=== PATIENT | female | born 1965 | race Caucasian/White ===

== ENCOUNTER 2017-12-28 13:56 | Day surgery (SDC) | payer OTHER, SELFPAY ==
[2017-12-28 14:06] VITALS: BP 135/91; PULSE 100; RESP 15; TEMP 36.3; O2SAT 96; BMI 28.1
[2017-12-28] MEDS: SODIUM CHLORIDE 0.9% 1,000 ML 200 ML IV (14:20)
[2017-12-28] MEDS: ONDANSETRON 4 MG/2 ML INJ IV (14:36)
--- NOTE | 2017-12-28 14:50 | P.HP_ITS ---
History of Present Illness Chief complaint: colonoscopy [id number] Narrative: Annelise Eason is a 52 year old female who is here for a screening colonoscopy. Her last colonoscopy was 5 years ago and benign polyps were removed. She denies any problems or symptoms related to the function of her GI tract. 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) Anxiety (Chronic 10/06/11) Tobacco use disorder (Chronic 10/06/11) Gastroesophageal reflux disease with esophagitis (Chronic 08/05/12) Osteoarthritis of both knees (Chronic 02/21/16) Moderate alcohol use disorder, in early remission (Chronic 10/07/16) Neuropathy of right ulnar nerve at wrist (Inactive 12/04/16) Surgical History History of esophagogastroduodenoscopy (EGD) (08/03/12) History of tonsillectomy Status post colonoscopy (08/03/12) Status post tubal ligation Family & Social History Family History: Reviewed 12/28/17 by Yary Flores MD Social History: household members significant other Prior Living Arrangements Apartment/Condo Tobacco & Substance use: Smoking Status Current every day smoker Meds Home Medications Medication Instructions Recorded Confirmed Type nicotine 21 mg TOPICAL QDAYP PRN #30 patch 10/07/16 12/22/17 Rx omeprazole 40 mg PO QDAY #30 cap 03/11/17 12/22/17 Rx fluticasone [Flonase Allergy 9.9 ml NS Q DAY #1 bot 09/07/17 12/22/17 Rx Relief] levothyroxine [Synthroid] 75 mcg PO QDAY@0600 #90 tab 09/07/17 12/22/17 Rx alprazolam 0.5 mg PO HS #30 tab 09/10/17 12/22/17 Rx diazepam 10 mg tablet 10 mg PO Q8H PRN #15 tab 12/22/17 Rx tramadol 50 mg tablet 50 mg PO Q6H PRN #30 tab 12/22/17 Rx Allergies Allergy/AdvReac Type Severity Reaction Status Date / Time varenicline Allergy Severe HIVES/DIFFICULTY Unverified 12/22/17 10:45 BREATHING Review of Systems Review of Systems All systems reviewed & are unremarkable except as noted in HPI and below Exam Vital Signs (past 8 hours): Vital Signs - 8 hr 3 12/28/17 14:06 Temperature 97.3 F L Pulse Rate 100 H Respiratory Rate 15 Blood Pressure 135/91 H Pulse Oximetry 96 Pulse Oximetry 96 Oxygen Delivery Method Room Air Narrative Exam Narrative: Very pleasant lady in no obvious distress HEENT: NCAT, PERRLA, EOMI Lungs: clear bilaterally CV: NSR Abd: soft, nontender, active bowel sounds Ext: no gross ischemia Assessment & Plan Plan: Plan: 52 year old lady with a personal history of colon polyps here for screening colonoscopy. We have discussed the risks and benefits and the patient has expressed a desire to have the procedure.
--- NOTE | 2017-12-28 15:16 | PM.OP.1 ---
Operative Date/Time/Diagnoses - Date of procedure: 12/28/17 Time of procedure: 15:16 Pre-op diagnosis: Personal History of Colon Polyps Post-op diagnosis: same Procedure & Clinicians Procedure: Colonoscopy to the cecum Same procedure as scheduled: Yes Indications: Last colonoscopy 5 years ago Surgeon: Yary Flores Click Yes if Unassisted: Yes Anesthesia Type: Sedation (Versed 13 mg; fentanyl 350 mcg) Operative Notes Findings: 1. Excellent prep 2. No polyps or mass lesions 3. Diverticulosis noted in the sigmoid colon with the most concentrated disease at the junction of the sigmoid and descending colons 4. One external skin tag 5. Grade 1-2 internal hemorrhoids Closure Type: not applicable Specimen(s): none sent Procedure in detail: After obtaining informed consent, the patient was brought to the GI suite and placed in the left lateral decubitus position on the examination table. After placement of appropriate monitors, the patient was given incremental doses of Versed and Fentanyl until an appropriate level of sedation was achieved. A time out was held per SCOAP protocol. A digital rectal examination was performed and did not reveal any masses or obstructing lesions. The colonoscope was gently passed into the patient's anus and the entire colon navigated to the level of the cecum with minimal difficulty. Once in the cecum, the scope was withdrawn being sure to go before and beyond all mucosal folds and prominences and get an excellent examination. The findings are noted above. At the level of the rectal vault, the scope was retroflexed and the internal anal canal was examined. The scope was straightened and air aspirated from the colon. The instrument was removed from the patient's body and the procedure was concluded. The patient was allowed to awaken from sedation without difficulty and taken to the post-anesthesia care unit in good condition. Total sedation time 16 min Total withdrawal time 8 min 30 sec Complications: none Condition: stable Disposition: PACU Plan for aftercare: 1. Discharge to home 2. Plan for next colonoscopy in 5 years or as clinically indicated
[2017-12-28 15:17] VITALS: BP 142/88; PULSE 106; RESP 15; TEMP 36.6; O2SAT 97
[2017-12-28] MEDS: MIDAZOLAM 5 MG/5 ML VIAL IV (15:20)
[2017-12-28] MEDS: fentaNYL 250 MCG/5 ML INJ IV (15:20)
[2017-12-28 15:23] VITALS: BP 146/86; PULSE 105; RESP 14; O2SAT 97
[2017-12-28 15:34] VITALS: BP 138/85; PULSE 108; RESP 16; TEMP 36.4; O2SAT 94
[2017-12-28 15:41] VITALS: BP 143/88; PULSE 99; RESP 16; TEMP 36.4; O2SAT 98
== END 2017-12-28 15:55 | disposition home or self-care (01) ==
PROVIDERS: PCP Family Medicine; Visit Provider Surgery
PROC: 0DJD8ZZ Inspection of Lower Intestinal Tract, Via Natural or Artificial Opening Endoscopic (ICD-10-PCS; CPT 45378; principal; 2017-12-28 15:00)
DX: Z12.11 Encounter for screening for malignant neoplasm of colon (principal); Z86.010 Personal history of colon polyps; K57.30 Diverticulosis of large intestine without perforation or abscess without bleeding; K64.1 Second degree hemorrhoids; K64.4 Residual hemorrhoidal skin tags; E03.9 Hypothyroidism, unspecified; Z87.891 Personal history of nicotine dependence
CPT/HCPCS: 45378; J2250; J2405; J3010

== ENCOUNTER → 2018-06-15 12:13 | Outpatient (CLI) | payer OTHER, MEDICAID, SELFPAY ==
[2018-06-15 14:01] LABS: TSH w/ Reflex to FT4 1.57 uIU/mL (0.47-4.68)
== END ==
PROVIDERS: PCP Family Medicine; Visit Provider Family Medicine
DX: E03.9 Hypothyroidism, unspecified (principal)
CPT/HCPCS: 36415; 84443

== ENCOUNTER 2018-08-09 12:15 | Outpatient (RCR) | payer OTHER, MEDICAID, SELFPAY ==
--- NOTE | 2018-07-06 14:44 | PT.OIE ---
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) Anxiety (Chronic 10/06/11) Tobacco use disorder (Chronic 10/06/11) Gastroesophageal reflux disease with esophagitis (Chronic 08/05/12) Osteoarthritis of both knees (Chronic 02/21/16) Moderate alcohol use disorder, in early remission (Chronic 10/07/16) Neuropathy of right ulnar nerve at wrist (Inactive 12/04/16) Bronchitis (Chronic) Depression (Chronic) Heavy menstrual period (Chronic) History of recurrent ear infection (Chronic) Insomnia (Chronic) Seasonal allergies (Chronic) Chicken pox (Resolved) Conjunctivitis (Resolved) Mumps (Resolved) Past Surgical History (Last Updated 06/06/18 @ 20:08 by Lucita Tripp) Anesthesia (Resolved) History of sinus surgery (Resolved ~1992) History of use of contraceptive intrauterine device (IUD) (Resolved ~12/23/11) History of esophagogastroduodenoscopy (EGD) (08/03/12) History of tonsillectomy (~1968) Status post colonoscopy (08/03/12) Status post tubal ligation (~1996) Provider Visit Care Team Role Provider Type Cindy Lake DO Primary Care Provider Physician Specialty: Family Practice Address: [address] [place] [address], [id number] Email: [email or web address] Rogers Attending Provider Advanced Textile Worker Specialty: [facility] Address: [address] [place] [address], [phone] Email: [email or web address] Physical Therapy Initial Evaluation PT-OP-A Visit Information Start: 07/06/18 17:23 Freq: Status: Active Protocol: Document 07/06/18 14:44 RCC (Rec: 07/06/18 18:02 RCC [email or web address]) Out-Patient Physical Therapy Visit Information Visit Information Visit Type Initial Evaluation Visit Start Time 13:45 Visit Stop Time 14:44 Total Visit Minutes 59 Visit Number 1 Number of COFFEE ROASTER HELPER Visits 0 Evaluation Information Evaluation Date 07/06/18 PT-OP-B Current Condition Start: 07/06/18 17:23 Freq: Status: Active Protocol: Document 07/06/18 14:44 RCC (Rec: 07/06/18 18:02 RCC [email or web address]) Current Condition History of Current Condition Onset Date September 2017 Current Complaints R sided low back, buttock pain History of Current Condition Pt is a 53 y/o female presenting to physical therapy with a c/o R sided buttock and low back pain. She admits to injury in September 2017 after attempting to move a dresser at home with her back vs the wall and pushing the dresser with her feet. She has had some osteopathic manual therapy with mild relief and then increase in pain hours later. She recently had an injection in the R trochanteric bursa with relief of pain at the bursa for 2+ weeks, but pain still remains in the posterior buttock and low back region. Radiograph reportedly did not show any acute findings (taken in supine per pt). She had to quit her job [place] [employer] [place] due to inability to physically perform her duties. She worked at [employer] for 1 day, and could not tolerate standing for the entire 8 hr shift. Pain is worst with prolonged sitting and standing (standing worse than sitting) . She has been unable to work for multiple months, no pain relief still at this point besides occasionally with tramodol (but not always). Pain usually does not extend down the RLE or up the spine. Denies numbness/tingling. 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 Current Functional Impairments (Reported) Functional Limitations- Work/School uanble to work Personal Factors Other Personal Factors That May Effect OA B knees, current smoker Therapy/Recovery PT-OP-C Subjective Start: 07/06/18 17:23 Freq: Status: Active Protocol: Document 07/06/18 14:44 RCC (Rec: 07/06/18 18:02 RCC [email or web address]) OP-PT Subjective Patient Comments Patient Comments Pt reports pain is the same to worse since onset. Patient Reported Progress Worse Patient Questionnaires Lower Extremity Functional Scale LEFS Score 31 LEFS Impairment 60 to 79% Impaired (Score 17- 31) OP-PT Pain Assessment Location L buttock/SI Intensity 5 Scale Used Numeric (1 - 10) Description Sharp Spasm Stabbing Frequency Frequent PT-OP-F Manual Assessment Start: 07/06/18 17:23 Freq: Status: Active Protocol: Document 07/06/18 14:44 RCC (Rec: 07/06/18 18:02 RCC [email or web address]) Manual Assessments Soft Tissue Assessment Soft Tissue Mobility Assessment tenderness to palpaiton: R paraspinals lumbar, R QL, R piriformis and gluteals Joint Mobility Assessment Joint Mobility Assessment tenderness to palpation: R PSIS, R SI joint Other Manual Assessments Other Manual Assessments negative tenderness to lumbar spine with PAs PT-OP-G Mobility & Gait Start: 07/06/18 17:23 Freq: Status: Active Protocol: Document 07/06/18 14:44 RCC (Rec: 07/06/18 18:02 RCC [email or web address]) OP Gait Assessment Gait Deviations General Gait Pattern Antalgic Decreased Stride Length Wide Based Gait Comments Gait Comments decreased weight shift to the RLE PT-OP-H Neuro Start: 07/06/18 17:23 Freq: Status: Active Protocol: Document 07/06/18 14:44 RCC (Rec: 07/06/18 18:02 RCC [email or web address]) Sensation Evaluation Gross Sensation Gross Sensation WNL PT-OP-K Range of Motion Start: 07/06/18 17:23 Freq: Status: Active Protocol: Document 07/06/18 14:44 RCC (Rec: 07/06/18 18:02 RCC [email or web address]) Lumbar Spine Range of Motion Lumbar Spine Active Degrees Testing Position Standing Flexion 75 Extension 30 Comments pain at end range lumbar flexion, no pain into extension. Hip Goniometric Range of Motion Hip Measured in Degrees Right Active Internal Rotation 20 External Rotation 60 Left Active Internal Rotation 35 External Rotation 60 PT-OP-L Special Tests Start: 07/06/18 17:23 Freq: Status: Active Protocol: Document 07/06/18 14:44 RCC (Rec: 07/06/18 18:02 RCC [email or web address]) Special Tests Lumbar Spine Special Tests Gaenslen Test Test Results positive R Anterior gapping Test Results positive R Straight Leg Raise Test Results negative bilaterally Slump Test Results negative bilaterally Prone Instability Test Test Results negative bilaterally Hip Special Tests ANGELITO Test Results negative bilaterally Buttocks Sign Test Results negative bilaterally Scour Test Test Results negative bilaterally PT-OP-M Strength Start: 07/06/18 17:23 Freq: Status: Active Protocol: Document 07/06/18 14:44 RCC (Rec: 07/06/18 18:02 [facility] [email or web address]) Hip Strength Hip Manual Muscle Testing Right Flexion (L2) 4 Good Adduction 5 Normal External Rotation 3+ Fair+ Internal Rotation 3+ Fair+ Left Flexion (L2) 5 Normal Adduction 5 Normal External Rotation 4 Good Internal Rotation 4 Good Knee Strength Knee Manual Muscle Testing Right Flexion (S2) 4 Good Extension (L3) 5 Normal Reason Not Measured Pain Left Flexion (S2) 5 Normal Extension (L3) 5 Normal Ankle/Foot Strength Ankle and Foot Manual Muscle Testing Right Dorsiflexion (L4) 5 Normal Left Dorsiflexion (L4) 5 Normal PT-OP-Q Treatments Start: 07/06/18 17:23 Freq: Status: Active Protocol: Document 07/06/18 14:44 RCC (Rec: 07/06/18 18:02 [facility] [email or web address]) Therapeutic Exercises Supine Exercises bridging Side bilateral Reps/Minutes 5 gluteal squeezes Side bilateral Reps/Minutes 10 Comments 5 sec hold TrAb activation Supine Exercise Name transverse abdominal activation Side bilateral Reps/Minutes 10 Comments 5 sec hold Sidelying Exercises clamshells Side right Reps/Minutes 10 PT-OP-R Modalities Start: 07/06/18 17:23 Freq: Status: Active Protocol: Document 07/06/18 14:44 RCC (Rec: 07/06/18 18:02 [facility] [email or web address]) Electric Stimulation Electric Stimulation Interferential Current (IFC) Body Location L SI Duration (Minutes) 15 Intensity 14 Patient Position Hooklying Combined With Heat/Cold Hot Pack PT-OP-T Assessment and Plan Start: 07/06/18 17:23 Freq: Status: Active Protocol: Document 07/06/18 14:44 [facility] (Rec: 07/06/18 18:02 [facility] [email or web address]) Physical Therapy Assessment Rehab Potential Rehabilitation Potential Good Evaluation Complexity Number of Personal Factors/Comorbidities 1-2 Number of Body Systems Impaired 3 Clinical Presentation at Evaluation Evolving Impairments Impairments Activity Tolerance Gait Pain ROM Soft Tissue Mobility Strength Goals gait Impairment antalgic gait Intermediate Goal (LTG) Pt will return to prior level of gait tolerance, including community distance outdoor ambulation on uneven terrain without increased pain prior to d/c. LTG Duration 10 weeks weakness Impairment LE weakness Short Term Goal (STG) R hip flexion to 5/5, IR and ER to 4-/5, knee flexion to 4+ /5 with manual muscle testing (MMT). STG Duration 5 weeks Diesel Technician Mechanic Goal (LTG) R hip IR and ER to at least 4/ 5 and knee flexion to 5/5 with MMT and no pain prior to d/c. LTG Duration 10 weeks pain Impairment pain rated 5/10 Short Term Goal (STG) 3/10 or less with standing. STG Duration 5 weeks Intermediate Goal (LTG) 1/10 or less pain with standing to be able to return to work (6-8 hrs standing tolerance). LTG Duration 10 weeks LEFS Impairment Lower Extremity Functional Scale- 31/80 (38.75%) Short Term Goal (STG) Pt will improve LEFS score to 40/80 or greater to demonstrate improvements with overall functional activities. STG Duration 5 weeks Diesel Technician Mechanic Goal (LTG) Pt will improve LEFS score to 44/80 or greater to demonstrate improvements with overall functional activities. LTG Duration 10 weeks Assessment Summary Assessment Pt presents with (+) signs and symptoms consistent with SI joint dysfunction on the R side. Pt with RLE weakness likely due to pain in the SI joint vs. neurological involvement, with normal sensation and no shooting pain . Pt's lumbar spine appears to be WNL with PA mobilizations, but stiffness of the SI joint and high levels of tenderness in the R buttock musculature and on the PSIS. At this time, pt is unable to work due to pain, and would greatly benefit from skilled outpatient physical therapy to improve RLE strength, gait, standing tolerance, improvements in core stability , manual therapy to improve SI joint mobility, and modalities for pain control. Physical Therapy Plan Frequency and Duration Frequency of Treatment 2x/Week Duration of Treatment 10 weeks Plan of Care Start Date 07/06/18 Plan of Care End Date 09/14/18 Therapeutic Interventions Therapeutic Interventions Aquatic Therapy Gait Training Home Exercise Program Joint Mobilizations Manual Therapy Neuromuscular Re-education Patient/Caregiver Education Self-Care/Home Management Soft Tissue Mobilization Taping Therapeutic Activities Therapeutic Exercises Modalities Cold Pack/Ice Massage Electric Stimulation Hot Packs Iontophoresis Traction- Mechanical Ultrasound Other Therapeutic Interventions iontophoresis with dexamethasone (4 mg/mL) Next Visit Focus/Plan Next Note Type Treatment Note Next Visit Plan assess SI joint alignment/ positioning, advance core stabilization; modalities for pain- US and E-stim.
--- NOTE | 2018-07-08 15:17 | PT.OTN ---
Current Diagnoses Other chronic pain (07/08/18) Sacrococcygeal disorders, not elsewhere classified (07/08/18) Physical Therapy Treatment Note PT-OP-A Visit Information Start: 07/06/18 17:23 Freq: Status: Active Protocol: Document 07/08/18 11:18 LRN (Rec: 07/08/18 15:16 LRN [id number]) Out-Patient Physical Therapy Visit Information Visit Information Visit Type Treatment Note Visit Start Time 11:18 Visit Stop Time 12:05 Total Visit Minutes 47 Visit Number 2 Number of MANUFACTURED BUILDINGS SUPERVISOR Visits 0 Evaluation Information Evaluation Date 07/06/18 PT-OP-B Current Condition Start: 07/06/18 17:23 Freq: Status: Active Protocol: Document 07/06/18 14:44 RCC (Rec: 07/06/18 18:02 RCC [email or web address]) Current Condition History of Current Condition Onset Date September 2017 Current Complaints R sided low back, buttock pain History of Current Condition Pt is a 53 y/o female presenting to physical therapy with a c/o R sided buttock and low back pain. She admits to injury in September 2017 after attempting to move a dresser at home with her back vs the wall and pushing the dresser with her feet. She has had some osteopathic manual therapy with mild relief and then increase in pain hours later. She recently had an injection in the R trochanteric bursa with relief of pain at the bursa for 2+ weeks, but pain still remains in the posterior buttock and low back region. Radiograph reportedly did not show any acute findings (taken in supine per pt). She had to quit her job at [employer] [facility] [place] [employer] due to inability to physically perform her duties. She worked at [employer] for 1 day, and could not tolerate standing for the entire 8 hr shift. Pain is worst with prolonged sitting and standing (standing worse than sitting) . She has been unable to work for multiple months, no pain relief still at this point besides occasionally with tramodol (but not always). Pain usually does not extend down the RLE or up the spine. Denies numbness/tingling. 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 Current Functional Impairments (Reported) Functional Limitations- Work/School uanble to work Personal Factors Other Personal Factors That May Effect OA B knees, current smoker Therapy/Recovery PT-OP-C Subjective Start: 07/06/18 17:23 Freq: Status: Active Protocol: Document 07/08/18 11:18 LRN (Rec: 07/08/18 15:16 LRN [id number]) OP-PT Subjective Patient Comments Patient Comments Pt reports she may be a little better. I can't stand PT-OP-F Manual Assessment Start: 07/06/18 17:23 Freq: Status: Active Protocol: Document 07/06/18 14:44 RCC (Rec: 07/06/18 18:02 RCC [email or web address]) Manual Assessments Soft Tissue Assessment Soft Tissue Mobility Assessment tenderness to palpaiton: R paraspinals lumbar, R QL, R piriformis and gluteals Joint Mobility Assessment Joint Mobility Assessment tenderness to palpation: R PSIS, R SI joint Other Manual Assessments Other Manual Assessments negative tenderness to lumbar spine with PAs PT-OP-G Mobility & Gait Start: 07/06/18 17:23 Freq: Status: Active Protocol: Document 07/06/18 14:44 RCC (Rec: 07/06/18 18:02 RCC [email or web address]) OP Gait Assessment Gait Deviations General Gait Pattern Antalgic Decreased Stride Length Wide Based Gait Comments Gait Comments decreased weight shift to the RLE PT-OP-H Neuro Start: 07/06/18 17:23 Freq: Status: Active Protocol: Document 07/06/18 14:44 RCC (Rec: 07/06/18 18:02 RCC [email or web address]) Sensation Evaluation Gross Sensation Gross Sensation WNL PT-OP-K Range of Motion Start: 07/06/18 17:23 Freq: Status: Active Protocol: Document 07/06/18 14:44 RCC (Rec: 07/06/18 18:02 RCC [email or web address]) Lumbar Spine Range of Motion Lumbar Spine Active Degrees Testing Position Standing Flexion 75 Extension 30 Comments pain at end range lumbar flexion, no pain into extension. Hip Goniometric Range of Motion Hip Measured in Degrees Right Active Internal Rotation 20 External Rotation 60 Left Active Internal Rotation 35 External Rotation 60 PT-OP-L Special Tests Start: 07/06/18 17:23 Freq: Status: Active Protocol: Document 07/06/18 14:44 RCC (Rec: 07/06/18 18:02 RCC [email or web address]) Special Tests Lumbar Spine Special Tests Gaenslen Test Test Results positive R Anterior gapping Test Results positive R Straight Leg Raise Test Results negative bilaterally Slump Test Results negative bilaterally Prone Instability Test Test Results negative bilaterally Hip Special Tests ANGELITO Test Results negative bilaterally Buttocks Sign Test Results negative bilaterally Scour Test Test Results negative bilaterally PT-OP-M Strength Start: 07/06/18 17:23 Freq: Status: Active Protocol: Document 07/06/18 14:44 RCC (Rec: 07/06/18 18:02 RCC [email or web address]) Hip Strength Hip Manual Muscle Testing Right Flexion (L2) 4 Good Adduction 5 Normal External Rotation 3+ Fair+ Internal Rotation 3+ Fair+ Left Flexion (L2) 5 Normal Adduction 5 Normal External Rotation 4 Good Internal Rotation 4 Good Knee Strength Knee Manual Muscle Testing Right Flexion (S2) 4 Good Extension (L3) 5 Normal Reason Not Measured Pain Left Flexion (S2) 5 Normal Extension (L3) 5 Normal Ankle/Foot Strength Ankle and Foot Manual Muscle Testing Right Dorsiflexion (L4) 5 Normal Left Dorsiflexion (L4) 5 Normal PT-OP-Q Treatments Start: 07/06/18 17:23 Freq: Status: Active Protocol: Document 07/08/18 11:18 LRN (Rec: 07/08/18 15:16 LRN [id number]) Therapeutic Exercises Supine Exercises Piriformis stretch Supine Exercise Name R leg crossed over L for L KTC Side right Comments Had to stop due to pain in R sacral border near EMETERIO. Lateral hip stretch Supine Exercise Name Lateral hip stretch Side right TrAb activation Supine Exercise Name transverse abdominal activation Side bilateral Reps/Minutes 10 Comments 5 sec hold Sidelying Exercises clamshells Side right Reps/Minutes 10 Comments Exercise placed on hold after today due to increased tone. Manual Therapy Treatment Soft Tissue Mobilization R SIJ Border & Upper Gluteals Mobilization Type Strumming Intensity/Depth Superficial SIJ Border, Moderate Upper Gluteals Body Position Prone Comments Manual check of SIJ positioning in prone and supine. +Drew's Sign on R. Nerve Glides LE Nerve Sciatic Details Check to neural tension bilaterally Body Position Supine Comments Pt PSLR ~40 deg's Right, ~50 deg's left. Self-Care/Home Management Treatment Education Patient Education Home Exercise Program Activities Self-Care/Home Management Activities Issued & reviewed for HEP: Lateral hip & Piriformis stretch. PT-OP-R Modalities Start: 07/06/18 17:23 Freq: Status: Active Protocol: Document 07/08/18 11:18 LRN (Rec: 07/08/18 15:16 LRN [id number]) Electric Stimulation Electric Stimulation Interferential Current (IFC) Body Location Low Back at level of L SI Duration (Minutes) 10 Intensity 13 Patient Position Hooklying Combined With Heat/Cold Cold Pack Ultrasound Therapy Treatment L SIJ line & Upper Gluteals Treatment Duration (minutes) 8 Patient Position Prone Coupling Medium Ultrasound Gel Applicator Size (cm2) 5 Frequency Setting (mHz) 1 Mode Setting Continuous Duty Cycle 100% Intensity Setting (w/cm2) 1.0 Comments Intensity 1.5 in Upper gluteals. PT-OP-T Assessment and Plan Start: 07/06/18 17:23 Freq: Status: Active Protocol: Document 07/08/18 11:18 LRN (Rec: 07/08/18 15:16 LRN [id number]) Physical Therapy Assessment Assessment Summary Assessment (+) sign of R SIJ dysfunction with possible coccyx tilt and very mild anterior rotation of R innominate. Today she had a + PSLR on the right; therefore consistent with RLE weakness. Pt has neural tension bilaterally, but no palpable pain with PA glide of the lumbar spine. She has good tolerance to treatment, but she has increased temp in the R lower buttock region; therefore she may do better with Ionto to the site of pain and increased use of cold therapy at home. She may also benefit from K-taping to decreased muscle tone or swelling if present. Physical Therapy Plan Frequency and Duration Frequency of Treatment 2x/Week Duration of Treatment 10 weeks Plan of Care Start Date 07/06/18 Plan of Care End Date 09/14/18 Next Visit Focus/Plan Next Note Type Treatment Note Next Visit Plan Assess response to treatment of US and exercise stretching, add LE neural/hamstring stretch, check coccyx positioning & monitor pelvic stability with correction as needed. Advance core stabilization; modalities for pain: recommend cryotherapy/E- stim.
--- NOTE | 2018-07-12 11:36 | PT.OTN ---
Current Diagnoses Other chronic pain (07/12/18) Sacrococcygeal disorders, not elsewhere classified (07/12/18) Physical Therapy Treatment Note PT-OP-A Visit Information Start: 07/06/18 17:23 Freq: Status: Active Protocol: Document 07/12/18 11:23 SA (Rec: 07/12/18 11:36 SA [email or web address]) Out-Patient Physical Therapy Visit Information Visit Information Visit Type Treatment Note Visit Start Time 10:32 Visit Stop Time 11:19 Visit Number 3 Number of DRUG SAFETY COORDINATOR Visits 1 PT-OP-B Current Condition Start: 07/06/18 17:23 Freq: Status: Active Protocol: Document 07/06/18 14:44 RCC (Rec: 07/06/18 18:02 RCC [email or web address]) Current Condition History of Current Condition Onset Date September 2017 Current Complaints R sided low back, buttock pain History of Current Condition Pt is a 53 y/o female presenting to physical therapy with a c/o R sided buttock and low back pain. She admits to injury in September 2017 after attempting to move a dresser at home with her back vs the wall and pushing the dresser with her feet. She has had some osteopathic manual therapy with mild relief and then increase in pain hours later. She recently had an injection in the R trochanteric bursa with relief of pain at the bursa for 2+ weeks, but pain still remains in the posterior buttock and low back region. Radiograph reportedly did not show any acute findings (taken in supine per pt). She had to quit her job at [employer] in [employer] due to inability to physically perform her duties. She worked at [employer] for 1 day, and could not tolerate standing for the entire 8 hr shift. Pain is worst with prolonged sitting and standing (standing worse than sitting) . She has been unable to work for multiple months, no pain relief still at this point besides occasionally with tramodol (but not always). Pain usually does not extend down the RLE or up the spine. Denies numbness/tingling. 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 Current Functional Impairments (Reported) Functional Limitations- Work/School uanble to work Personal Factors Other Personal Factors That May Effect OA B knees, current smoker Therapy/Recovery PT-OP-C Subjective Start: 07/06/18 17:23 Freq: Status: Active Protocol: Document 07/12/18 11:23 SA (Rec: 07/12/18 11:36 SA [email or web address]) OP-PT Subjective Patient Comments Patient Comments Feeling sore today, I did a lot of walking at a [employer] last night. Did not tolerate ice at last visit. Patient Reported Progress Worse PT-OP-F Manual Assessment Start: 07/06/18 17:23 Freq: Status: Active Protocol: Document 07/06/18 14:44 RCC (Rec: 07/06/18 18:02 RCC [email or web address]) Manual Assessments Soft Tissue Assessment Soft Tissue Mobility Assessment tenderness to palpaiton: R paraspinals lumbar, R QL, R piriformis and gluteals Joint Mobility Assessment Joint Mobility Assessment tenderness to palpation: R PSIS, R SI joint Other Manual Assessments Other Manual Assessments negative tenderness to lumbar spine with PAs PT-OP-G Mobility & Gait Start: 07/06/18 17:23 Freq: Status: Active Protocol: Document 07/06/18 14:44 RCC (Rec: 07/06/18 18:02 RCC [email or web address]) OP Gait Assessment Gait Deviations General Gait Pattern Antalgic Decreased Stride Length Wide Based Gait Comments Gait Comments decreased weight shift to the RLE PT-OP-H Neuro Start: 07/06/18 17:23 Freq: Status: Active Protocol: Document 07/06/18 14:44 RCC (Rec: 07/06/18 18:02 RCC [email or web address]) Sensation Evaluation Gross Sensation Gross Sensation WNL PT-OP-K Range of Motion Start: 07/06/18 17:23 Freq: Status: Active Protocol: Document 07/06/18 14:44 RCC (Rec: 07/06/18 18:02 RCC [email or web address]) Lumbar Spine Range of Motion Lumbar Spine Active Degrees Testing Position Standing Flexion 75 Extension 30 Comments pain at end range lumbar flexion, no pain into extension. Hip Goniometric Range of Motion Hip Measured in Degrees Right Active Internal Rotation 20 External Rotation 60 Left Active Internal Rotation 35 External Rotation 60 PT-OP-L Special Tests Start: 07/06/18 17:23 Freq: Status: Active Protocol: Document 07/06/18 14:44 RCC (Rec: 07/06/18 18:02 RCC [email or web address]) Special Tests Lumbar Spine Special Tests Gaenslen Test Test Results positive R Anterior gapping Test Results positive R Straight Leg Raise Test Results negative bilaterally Slump Test Results negative bilaterally Prone Instability Test Test Results negative bilaterally Hip Special Tests ANGELITO Test Results negative bilaterally Buttocks Sign Test Results negative bilaterally Scour Test Test Results negative bilaterally PT-OP-M Strength Start: 07/06/18 17:23 Freq: Status: Active Protocol: Document 07/06/18 14:44 RCC (Rec: 07/06/18 18:02 RCC [email or web address]) Hip Strength Hip Manual Muscle Testing Right Flexion (L2) 4 Good Adduction 5 Normal External Rotation 3+ Fair+ Internal Rotation 3+ Fair+ Left Flexion (L2) 5 Normal Adduction 5 Normal External Rotation 4 Good Internal Rotation 4 Good Knee Strength Knee Manual Muscle Testing Right Flexion (S2) 4 Good Extension (L3) 5 Normal Reason Not Measured Pain Left Flexion (S2) 5 Normal Extension (L3) 5 Normal Ankle/Foot Strength Ankle and Foot Manual Muscle Testing Right Dorsiflexion (L4) 5 Normal Left Dorsiflexion (L4) 5 Normal PT-OP-Q Treatments Start: 07/06/18 17:23 Freq: Status: Active Protocol: Document 07/12/18 11:23 SA (Rec: 07/12/18 11:36 SA [email or web address]) Therapeutic Exercises Supine Exercises Gentle HS stretch Side bilateral Reps/Minutes 20 x 2 each Comments Gradual increase to 45 degrees with RLE to tolerance Piriformis stretch Supine Exercise Name R leg crossed over L for L KTC Side right Comments Had to stop due to pain in R sacral border near EMETERIO. Lateral hip stretch Supine Exercise Name Lateral hip stretch Side right bridging Side bilateral Reps/Minutes 10 gluteal squeezes Side bilateral Reps/Minutes 10 Comments 5 sec hold TrAb activation Supine Exercise Name transverse abdominal activation Side bilateral Reps/Minutes 12 Comments 5 sec hold Sidelying Exercises clamshells Side right Reps/Minutes 10 Comments Exercise placed on hold after today due to increased tone. Manual Therapy Treatment Soft Tissue Mobilization R SIJ Border & Upper Gluteals Mobilization Type Rolling Strumming Sustained Pressure Intensity/Depth Superficial SIJ Border, Moderate Upper Gluteals Body Position Prone PT-OP-R Modalities Start: 07/06/18 17:23 Freq: Status: Active Protocol: Document 07/12/18 11:23 SA (Rec: 07/12/18 11:36 SA [email or web address]) Electric Stimulation Electric Stimulation Interferential Current (IFC) Body Location Low Back at level of L SI Duration (Minutes) 15 Intensity 13 Patient Position Prone Combined With Heat/Cold Hot Pack Comments Pt did not tolerate CP last visit requested HP PT-OP-T Assessment and Plan Start: 07/06/18 17:23 Freq: Status: Active Protocol: Document 07/12/18 11:23 SA (Rec: 07/12/18 11:36 SA [email or web address]) Physical Therapy Assessment Assessment Summary Assessment Pt very gaurde through R sacral area with + sign of r SIJ dysfunction, RLE weakness. Discussed ambulation as pt states she feels better when she walks more. To initiate walking program with gradual distance gains this week. Assess next visit. Physical Therapy Plan Next Visit Focus/Plan Next Note Type Treatment Note Next Visit Plan Assess response to manual therapy and possible initiation of walking program, continue with core stability exercise.
--- NOTE | 2018-07-14 12:00 | PT.OTN ---
Current Diagnoses Other chronic pain (07/14/18) Sacrococcygeal disorders, not elsewhere classified (07/14/18) Physical Therapy Treatment Note PT-OP-A Visit Information Start: 07/06/18 17:23 Freq: Status: Active Protocol: Document 07/14/18 12:00 RCC (Rec: 07/14/18 13:40 RCC [email or web address]) Out-Patient Physical Therapy Visit Information Visit Information Visit Type Treatment Note Visit Start Time 11:15 Visit Stop Time 12:06 Total Visit Minutes 51 Visit Number 4 Number of FAMILY THERAPIST Visits 0 Evaluation Information Evaluation Date 07/06/18 PT-OP-B Current Condition Start: 07/06/18 17:23 Freq: Status: Active Protocol: Document 07/06/18 14:44 RCC (Rec: 07/06/18 18:02 RCC [email or web address]) Current Condition History of Current Condition Onset Date September 2017 Current Complaints R sided low back, buttock pain History of Current Condition Pt is a 53 y/o female presenting to physical therapy with a c/o R sided buttock and low back pain. She admits to injury in September 2017 after attempting to move a dresser at home with her back vs the wall and pushing the dresser with her feet. She has had some osteopathic manual therapy with mild relief and then increase in pain hours later. She recently had an injection in the R trochanteric bursa with relief of pain at the bursa for 2+ weeks, but pain still remains in the posterior buttock and low back region. Radiograph reportedly did not show any acute findings (taken in supine per pt). She had to quit her job at [employer] in [employer] due to inability to physically perform her duties. She worked at [employer] for 1 day, and could not tolerate standing for the entire 8 hr shift. Pain is worst with prolonged sitting and standing (standing worse than sitting) . She has been unable to work for multiple months, no pain relief still at this point besides occasionally with tramodol (but not always). Pain usually does not extend down the RLE or up the spine. Denies numbness/tingling. 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 Current Functional Impairments (Reported) Functional Limitations- Work/School uanble to work Personal Factors Other Personal Factors That May Effect OA B knees, current smoker Therapy/Recovery PT-OP-C Subjective Start: 07/06/18 17:23 Freq: Status: Active Protocol: Document 07/14/18 12:00 RCC (Rec: 07/14/18 13:40 RCC [email or web address]) OP-PT Subjective Patient Comments Patient Comments Pt feeling better over the past 2 days, stating she is able to stand longer. PT-OP-F Manual Assessment Start: 07/06/18 17:23 Freq: Status: Active Protocol: Document 07/14/18 12:00 RCC (Rec: 07/14/18 13:40 RCC [email or web address]) Manual Assessments Other Manual Assessments Other Manual Assessments level ASIS in supine PT-OP-G Mobility & Gait Start: 07/06/18 17:23 Freq: Status: Active Protocol: Document 07/06/18 14:44 RCC (Rec: 07/06/18 18:02 RCC [email or web address]) OP Gait Assessment Gait Deviations General Gait Pattern Antalgic Decreased Stride Length Wide Based Gait Comments Gait Comments decreased weight shift to the RLE PT-OP-H Neuro Start: 07/06/18 17:23 Freq: Status: Active Protocol: Document 07/06/18 14:44 RCC (Rec: 07/06/18 18:02 RCC [email or web address]) Sensation Evaluation Gross Sensation Gross Sensation WNL PT-OP-K Range of Motion Start: 07/06/18 17:23 Freq: Status: Active Protocol: Document 07/06/18 14:44 RCC (Rec: 07/06/18 18:02 RCC [email or web address]) Lumbar Spine Range of Motion Lumbar Spine Active Degrees Testing Position Standing Flexion 75 Extension 30 Comments pain at end range lumbar flexion, no pain into extension. Hip Goniometric Range of Motion Hip Measured in Degrees Right Active Internal Rotation 20 External Rotation 60 Left Active Internal Rotation 35 External Rotation 60 PT-OP-L Special Tests Start: 07/06/18 17:23 Freq: Status: Active Protocol: Document 07/06/18 14:44 RCC (Rec: 07/06/18 18:02 RCC [email or web address]) Special Tests Lumbar Spine Special Tests Gaenslen Test Test Results positive R Anterior gapping Test Results positive R Straight Leg Raise Test Results negative bilaterally Slump Test Results negative bilaterally Prone Instability Test Test Results negative bilaterally Hip Special Tests ANGELITO Test Results negative bilaterally Buttocks Sign Test Results negative bilaterally Scour Test Test Results negative bilaterally PT-OP-M Strength Start: 07/06/18 17:23 Freq: Status: Active Protocol: Document 07/06/18 14:44 RCC (Rec: 07/06/18 18:02 RCC [email or web address]) Hip Strength Hip Manual Muscle Testing Right Flexion (L2) 4 Good Adduction 5 Normal External Rotation 3+ Fair+ Internal Rotation 3+ Fair+ Left Flexion (L2) 5 Normal Adduction 5 Normal External Rotation 4 Good Internal Rotation 4 Good Knee Strength Knee Manual Muscle Testing Right Flexion (S2) 4 Good Extension (L3) 5 Normal Reason Not Measured Pain Left Flexion (S2) 5 Normal Extension (L3) 5 Normal Ankle/Foot Strength Ankle and Foot Manual Muscle Testing Right Dorsiflexion (L4) 5 Normal Left Dorsiflexion (L4) 5 Normal PT-OP-Q Treatments Start: 07/06/18 17:23 Freq: Status: Active Protocol: Document 07/14/18 12:00 RCC (Rec: 07/14/18 13:40 [facility] [email or web address]) Therapeutic Exercises Supine Exercises Gentle HS stretch Side bilateral Reps/Minutes 20 x 2 each Comments Gradual increase to 45 degrees with RLE to tolerance Piriformis stretch Supine Exercise Name R leg crossed over L for L KTC Side right Comments no pain bridging Side bilateral Reps/Minutes 10 Manual Therapy Treatment Soft Tissue Mobilization R piriformis Mobilization Type Strumming Intensity/Depth Moderate Body Position Sidelying R SIJ Border & Upper Gluteals Mobilization Type Rolling Strumming Intensity/Depth Moderate Body Position Sidelying Nerve Glides LE Nerve sciatic nerve glides R Details modified in sitting due to pain in supine with SLR >40 degrees Reps/Duration 10 PT-OP-R Modalities Start: 07/06/18 17:23 Freq: Status: Active Protocol: Document 07/14/18 12:00 RCC (Rec: 07/14/18 13:40 [facility] [email or web address]) Electric Stimulation Electric Stimulation Interferential Current (IFC) Body Location Low Back at level of L SI Duration (Minutes) 15 Intensity 14 Patient Position Supine Combined With Heat/Cold Hot Pack PT-OP-T Assessment and Plan Start: 07/06/18 17:23 Freq: Status: Active Protocol: Document 07/14/18 12:00 RCC (Rec: 07/14/18 13:40 [facility] [email or web address]) Physical Therapy Assessment Assessment Summary Assessment Pt unable to tolerate nerve glides for addition to HEP in supine, but did tolerate modified position sitting with R foot propped up 6 in. Increased time to perform sciatic nerve glides to ensure good technique and performance required. Pt continues to have increased tension in gluteals and piriformis on the R. Physical Therapy Plan Frequency and Duration Frequency of Treatment 2x/Week Duration of Treatment 10 weeks Plan of Care Start Date 07/06/18 Plan of Care End Date 09/14/18 Next Visit Focus/Plan Next Note Type Treatment Note Next Visit Plan advance pelvic/core stabilization as tolerated, reasses sciatic nerve glides.
--- NOTE | 2018-07-19 15:26 | PT.OTN ---
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 She admits to injury in September 2017 after attempting to move a dresser at home with her back vs the wall and pushing the dresser with her feet. She has had some osteopathic manual therapy with mild relief and then increase in pain hours later. She recently had an injection in the R trochanteric bursa with relief of pain at the bursa for 2+ weeks, but pain still remains in the posterior buttock and low back region. Radiograph reportedly did not show any acute findings (taken in supine per pt). She had to quit her job [place] [employer] [place] due to inability to physically perform her duties. She worked at [employer] for 1 day, and could not tolerate standing for the entire 8 hr shift. Pain is worst with prolonged sitting and standing (standing worse than sitting) . She has been unable to work for multiple months, no pain relief still at this point besides occasionally with tramodol (but not always). Pain usually does not extend down the RLE or up the spine. Denies numbness/tingling. 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 Current Functional Impairments (Reported) Functional Limitations- Work/School uanble to work Personal Factors Other Personal Factors That May Effect OA B knees, current smoker Therapy/Recovery PT-OP-C Subjective Start: 07/06/18 17:23 Freq: Status: Active Protocol: Document 07/19/18 15:11 SA (Rec: 07/19/18 15:26 SA [email or web address]) OP-PT Subjective Patient Comments Patient Comments Pt reports gradual improvement and ability to tolerate sitting decreased pain. PT-OP-F Manual Assessment Start: 07/06/18 17:23 Freq: Status: Active Protocol: Document 07/14/18 12:00 RCC (Rec: 07/14/18 13:40 RCC [email or web address]) Manual Assessments Other Manual Assessments Other Manual Assessments level ASIS in supine PT-OP-G Mobility & Gait Start: 07/06/18 17:23 Freq: Status: Active Protocol: Document 07/06/18 14:44 RCC (Rec: 07/06/18 18:02 RCC [email or web address]) OP Gait Assessment Gait Deviations General Gait Pattern Antalgic Decreased Stride Length Wide Based Gait Comments Gait Comments decreased weight shift to the RLE PT-OP-H Neuro Start: 07/06/18 17:23 Freq: Status: Active Protocol: Document 07/06/18 14:44 RCC (Rec: 07/06/18 18:02 RCC [email or web address]) Sensation Evaluation Gross Sensation Gross Sensation WNL PT-OP-K Range of Motion Start: 07/06/18 17:23 Freq: Status: Active Protocol: Document 07/06/18 14:44 RCC (Rec: 07/06/18 18:02 RCC [email or web address]) Lumbar Spine Range of Motion Lumbar Spine Active Degrees Testing Position Standing Flexion 75 Extension 30 Comments pain at end range lumbar flexion, no pain into extension. Hip Goniometric Range of Motion Hip Measured in Degrees Right Active Internal Rotation 20 External Rotation 60 Left Active Internal Rotation 35 External Rotation 60 PT-OP-L Special Tests Start: 07/06/18 17:23 Freq: Status: Active Protocol: Document 07/06/18 14:44 RCC (Rec: 07/06/18 18:02 RCC [email or web address]) Special Tests Lumbar Spine Special Tests Gaenslen Test Test Results positive R Anterior gapping Test Results positive R Straight Leg Raise Test Results negative bilaterally Slump Test Results negative bilaterally Prone Instability Test Test Results negative bilaterally Hip Special Tests ANGELITO Test Results negative bilaterally Buttocks Sign Test Results negative bilaterally Scour Test Test Results negative bilaterally PT-OP-M Strength Start: 07/06/18 17:23 Freq: Status: Active Protocol: Document 07/06/18 14:44 RCC (Rec: 07/06/18 18:02 RCC [email or web address]) Hip Strength Hip Manual Muscle Testing Right Flexion (L2) 4 Good Adduction 5 Normal External Rotation 3+ Fair+ Internal Rotation 3+ Fair+ Left Flexion (L2) 5 Normal Adduction 5 Normal External Rotation 4 Good Internal Rotation 4 Good Knee Strength Knee Manual Muscle Testing Right Flexion (S2) 4 Good Extension (L3) 5 Normal Reason Not Measured Pain Left Flexion (S2) 5 Normal Extension (L3) 5 Normal Ankle/Foot Strength Ankle and Foot Manual Muscle Testing Right Dorsiflexion (L4) 5 Normal Left Dorsiflexion (L4) 5 Normal PT-OP-Q Treatments Start: 07/06/18 17:23 Freq: Status: Active Protocol: Document 07/19/18 15:11 SA (Rec: 07/19/18 15:26 SA [email or web address]) Therapeutic Exercises Supine Exercises Gentle HS stretch Side bilateral Reps/Minutes 20 x 2 each Comments Gradual increase to 45 degrees with RLE to tolerance Piriformis stretch Supine Exercise Name R leg crossed over L for L KTC Side right Comments no pain Lateral hip stretch Supine Exercise Name Lateral hip stretch Side right bridging Side bilateral Reps/Minutes 10 gluteal squeezes Side bilateral Reps/Minutes 10 Comments 5 sec hold TrAb activation Supine Exercise Name transverse abdominal activation Side bilateral Reps/Minutes 12 Comments 5 sec hold Manual Therapy Treatment Soft Tissue Mobilization R piriformis Mobilization Type Strumming Intensity/Depth Moderate Body Position Sidelying R SIJ Border & Upper Gluteals Mobilization Type Rolling Strumming Intensity/Depth Moderate Body Position Sidelying Comments Muscle energy technique for SI instability. PT-OP-R Modalities Start: 07/06/18 17:23 Freq: Status: Active Protocol: Document 07/19/18 15:11 SA (Rec: 07/19/18 15:26 SA [email or web address]) Electric Stimulation Electric Stimulation Interferential Current (IFC) Body Location Low Back at level of L SI Duration (Minutes) 12 Intensity 14 Patient Position Sidelying Combined With Heat/Cold Hot Pack PT-OP-T Assessment and Plan Start: 07/06/18 17:23 Freq: Status: Active Protocol: Document 07/19/18 15:11 SA (Rec: 07/19/18 15:26 SA [email or web address]) Physical Therapy Assessment Progress Towards Goals Progress Towards Goals Progressing Toward Goals Progress Comments Improving sitting ability. Assessment Summary Assessment Pt doing modified nerve glides in seated at home, with decreasing R buttock symptoms and improving sitting ability. Physical Therapy Plan Next Visit Focus/Plan Next Note Type Treatment Note Next Visit Plan Continue with modified nerve glides, progress core stabilization as tolerated and assess response to manual therapy.
--- NOTE | 2018-08-09 13:46 | PT.OTN ---
Current Diagnoses Other chronic pain (08/09/18) Sacrococcygeal disorders, not elsewhere classified (08/09/18) Physical Therapy Treatment Note PT-OP-A Visit Information Start: 07/06/18 17:23 Freq: Status: Active Protocol: Document 08/09/18 13:12 SA (Rec: 08/09/18 13:46 SA [email or web address]) Out-Patient Physical Therapy Visit Information Visit Information Visit Type Treatment Note Visit Start Time 12:15 Visit Stop Time 13:01 Total Visit Minutes 46 Visit Number 6 Number of ADVANCED SOLUTIONS ARCHITECT Visits 2 PT-OP-B Current Condition Start: 07/06/18 17:23 Freq: Status: Active Protocol: Document 07/06/18 14:44 RCC (Rec: 07/06/18 18:02 RCC [email or web address]) Current Condition History of Current Condition Onset Date September 2017 Current Complaints R sided low back, buttock pain History of Current Condition Pt is a 53 y/o female presenting to physical therapy with a c/o R sided buttock and low back pain. She admits to injury in September 2017 after attempting to move a dresser at home with her back vs the wall and pushing the dresser with her feet. She has had some osteopathic manual therapy with mild relief and then increase in pain hours later. She recently had an injection in the R trochanteric bursa with relief of pain at the bursa for 2+ weeks, but pain still remains in the posterior buttock and low back region. Radiograph reportedly did not show any acute findings (taken in supine per pt). She had to quit her job at [employer] [place] due to inability to physically perform her duties. She worked at [employer] for 1 day, and could not tolerate standing for the entire 8 hr shift. Pain is worst with prolonged sitting and standing (standing worse than sitting) . She has been unable to work for multiple months, no pain relief still at this point besides occasionally with tramodol (but not always). Pain usually does not extend down the RLE or up the spine. Denies numbness/tingling. 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 Current Functional Impairments (Reported) Functional Limitations- Work/School uanble to work Personal Factors Other Personal Factors That May Effect OA B knees, current smoker Therapy/Recovery PT-OP-C Subjective Start: 07/06/18 17:23 Freq: Status: Active Protocol: Document 08/09/18 13:12 SA (Rec: 08/09/18 13:46 SA [email or web address]) OP-PT Subjective Patient Comments Patient Comments Pt reports decreased symptoms and improving sitting ability. Admits to not doing activity lately and needing to improve so she can get back to work. PT-OP-F Manual Assessment Start: 07/06/18 17:23 Freq: Status: Active Protocol: Document 07/14/18 12:00 RCC (Rec: 07/14/18 13:40 RCC [email or web address]) Manual Assessments Other Manual Assessments Other Manual Assessments level ASIS in supine PT-OP-G Mobility & Gait Start: 07/06/18 17:23 Freq: Status: Active Protocol: Document 07/06/18 14:44 RCC (Rec: 07/06/18 18:02 RCC [email or web address]) OP Gait Assessment Gait Deviations General Gait Pattern Antalgic Decreased Stride Length Wide Based Gait Comments Gait Comments decreased weight shift to the RLE PT-OP-H Neuro Start: 07/06/18 17:23 Freq: Status: Active Protocol: Document 07/06/18 14:44 RCC (Rec: 07/06/18 18:02 RCC [email or web address]) Sensation Evaluation Gross Sensation Gross Sensation WNL PT-OP-K Range of Motion Start: 07/06/18 17:23 Freq: Status: Active Protocol: Document 07/06/18 14:44 RCC (Rec: 07/06/18 18:02 RCC [email or web address]) Lumbar Spine Range of Motion Lumbar Spine Active Degrees Testing Position Standing Flexion 75 Extension 30 Comments pain at end range lumbar flexion, no pain into extension. Hip Goniometric Range of Motion Hip Measured in Degrees Right Active Internal Rotation 20 External Rotation 60 Left Active Internal Rotation 35 External Rotation 60 PT-OP-L Special Tests Start: 07/06/18 17:23 Freq: Status: Active Protocol: Document 07/06/18 14:44 RCC (Rec: 07/06/18 18:02 RCC [email or web address]) Special Tests Lumbar Spine Special Tests Gaenslen Test Test Results positive R Anterior gapping Test Results positive R Straight Leg Raise Test Results negative bilaterally Slump Test Results negative bilaterally Prone Instability Test Test Results negative bilaterally Hip Special Tests ANGELITO Test Results negative bilaterally Buttocks Sign Test Results negative bilaterally Scour Test Test Results negative bilaterally PT-OP-M Strength Start: 07/06/18 17:23 Freq: Status: Active Protocol: Document 07/06/18 14:44 RCC (Rec: 07/06/18 18:02 RCC [email or web address]) Hip Strength Hip Manual Muscle Testing Right Flexion (L2) 4 Good Adduction 5 Normal External Rotation 3+ Fair+ Internal Rotation 3+ Fair+ Left Flexion (L2) 5 Normal Adduction 5 Normal External Rotation 4 Good Internal Rotation 4 Good Knee Strength Knee Manual Muscle Testing Right Flexion (S2) 4 Good Extension (L3) 5 Normal Reason Not Measured Pain Left Flexion (S2) 5 Normal Extension (L3) 5 Normal Ankle/Foot Strength Ankle and Foot Manual Muscle Testing Right Dorsiflexion (L4) 5 Normal Left Dorsiflexion (L4) 5 Normal PT-OP-Q Treatments Start: 07/06/18 17:23 Freq: Status: Active Protocol: Document 08/09/18 13:12 SA (Rec: 08/09/18 13:46 SA [email or web address]) Therapeutic Exercises Supine Exercises Gentle HS stretch Reps/Minutes 20 x 2 each Comments Gradual increase to 45 degrees with RLE to tolerance bridging Side bilateral Reps/Minutes 15 TrAb activation Supine Exercise Name transverse abdominal activation Side bilateral Reps/Minutes 12 Comments 5 sec hold Sidelying Exercises clamshells Side right Reps/Minutes 10 Comments Exercise placed on hold after today due to increased tone. Manual Therapy Treatment Soft Tissue Mobilization R piriformis Mobilization Type Strumming Intensity/Depth Moderate Body Position Sidelying R SIJ Border & Upper Gluteals Mobilization Type Rolling Strumming Intensity/Depth Moderate Body Position Sidelying PT-OP-R Modalities Start: 07/06/18 17:23 Freq: Status: Active Protocol: Document 08/09/18 13:12 SA (Rec: 08/09/18 13:46 SA [email or web address]) Electric Stimulation Electric Stimulation Interferential Current (IFC) Body Location Low Back at level of L SI Duration (Minutes) 15 Intensity 15 Patient Position Sidelying Combined With Heat/Cold Hot Pack PT-OP-T Assessment and Plan Start: 07/06/18 17:23 Freq: Status: Active Protocol: Document 08/09/18 13:12 SA (Rec: 08/09/18 13:46 SA [email or web address]) Physical Therapy Assessment Assessment Summary Assessment Pt with decreasing symptoms. Walking program provided as part of HEP for patient to increase activity level and overall conditioning in preparation for work. Pt states she feels good enough now to start walking more. Physical Therapy Plan Next Visit Focus/Plan Next Note Type Treatment Note Next Visit Plan Progress core stability program as tolerated and assess response to initiation of walking program if patient started it.
--- NOTE | 2018-08-24 09:41 | PT.OPDS ---
Current Diagnoses Other chronic pain (08/09/18) Sacrococcygeal disorders, not elsewhere classified (08/09/18) Provider Visit Care Team Role Provider Type Cindy Lake DO Primary Care Provider Physician Specialty: [facility] Address: [address] [place] [address], [id number] Email: [email or web address] DREW Rogers Attending Provider Advanced Blog Writer Specialty: [facility] Address: [address] [place] [address], [id number] Email: [email or web address] Visit Number Visit Number 6 Discharge Summary PT-OP-B Current Condition Start: 07/06/18 17:23 Freq: Status: Active Protocol: Document 07/06/18 14:44 RCC (Rec: 07/06/18 18:02 RCC [email or web address]) Current Condition History of Current Condition Onset Date September 2017 Current Complaints R sided low back, buttock pain History of Current Condition Pt is a 53 y/o female presenting to physical therapy with a c/o R sided buttock and low back pain. She admits to injury in September 2017 after attempting to move a dresser at home with her back vs the wall and pushing the dresser with her feet. She has had some osteopathic manual therapy with mild relief and then increase in pain hours later. She recently had an injection in the R trochanteric bursa with relief of pain at the bursa for 2+ weeks, but pain still remains in the posterior buttock and low back region. Radiograph reportedly did not show any acute findings (taken in supine per pt). She had to quit her job at [employer] in [place] due to inability to physically perform her duties. She worked at [employer] for 1 day, and could not tolerate standing for the entire 8 hr shift. Pain is worst with prolonged sitting and standing (standing worse than sitting) . She has been unable to work for multiple months, no pain relief still at this point besides occasionally with tramodol (but not always). Pain usually does not extend down the RLE or up the spine. Denies numbness/tingling. 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 Current Functional Impairments (Reported) Functional Limitations- Work/School uanble to work Personal Factors Other Personal Factors That May Effect OA B knees, current smoker Therapy/Recovery PT-OP-C Subjective Start: 07/06/18 17:23 Freq: Status: Active Protocol: Document 08/09/18 13:12 SA (Rec: 08/09/18 13:46 SA [email or web address]) OP-PT Subjective Patient Comments Patient Comments Pt reports decreased symptoms and improving sitting ability. Admits to not doing activity lately and needing to improve so she can get back to work. PT-OP-F Manual Assessment Start: 07/06/18 17:23 Freq: Status: Active Protocol: Document 07/14/18 12:00 RCC (Rec: 07/14/18 13:40 RCC [email or web address]) Manual Assessments Other Manual Assessments Other Manual Assessments level ASIS in supine PT-OP-G Mobility & Gait Start: 07/06/18 17:23 Freq: Status: Active Protocol: Document 07/06/18 14:44 RCC (Rec: 07/06/18 18:02 RCC [email or web address]) OP Gait Assessment Gait Deviations General Gait Pattern Antalgic Decreased Stride Length Wide Based Gait Comments Gait Comments decreased weight shift to the RLE PT-OP-H Neuro Start: 07/06/18 17:23 Freq: Status: Active Protocol: Document 07/06/18 14:44 RCC (Rec: 07/06/18 18:02 RCC [email or web address]) Sensation Evaluation Gross Sensation Gross Sensation WNL PT-OP-K Range of Motion Start: 07/06/18 17:23 Freq: Status: Active Protocol: Document 07/06/18 14:44 RCC (Rec: 07/06/18 18:02 RCC [email or web address]) Lumbar Spine Range of Motion Lumbar Spine Active Degrees Testing Position Standing Flexion 75 Extension 30 Comments pain at end range lumbar flexion, no pain into extension. Hip Goniometric Range of Motion Hip Measured in Degrees Right Active Internal Rotation 20 External Rotation 60 Left Active Internal Rotation 35 External Rotation 60 PT-OP-L Special Tests Start: 07/06/18 17:23 Freq: Status: Active Protocol: Document 07/06/18 14:44 RCC (Rec: 07/06/18 18:02 RCC [email or web address]) Special Tests Lumbar Spine Special Tests Gaenslen Test Test Results positive R Anterior gapping Test Results positive R Straight Leg Raise Test Results negative bilaterally Slump Test Results negative bilaterally Prone Instability Test Test Results negative bilaterally Hip Special Tests ANGELITO Test Results negative bilaterally Buttocks Sign Test Results negative bilaterally Scour Test Test Results negative bilaterally PT-OP-M Strength Start: 07/06/18 17:23 Freq: Status: Active Protocol: Document 07/06/18 14:44 RCC (Rec: 07/06/18 18:02 RCC [email or web address]) Hip Strength Hip Manual Muscle Testing Right Flexion (L2) 4 Good Adduction 5 Normal External Rotation 3+ Fair+ Internal Rotation 3+ Fair+ Left Flexion (L2) 5 Normal Adduction 5 Normal External Rotation 4 Good Internal Rotation 4 Good Knee Strength Knee Manual Muscle Testing Right Flexion (S2) 4 Good Extension (L3) 5 Normal Reason Not Measured Pain Left Flexion (S2) 5 Normal Extension (L3) 5 Normal Ankle/Foot Strength Ankle and Foot Manual Muscle Testing Right Dorsiflexion (L4) 5 Normal Left Dorsiflexion (L4) 5 Normal PT-OP-T Assessment and Plan Start: 07/06/18 17:23 Freq: Status: Active Protocol: Document 08/24/18 09:37 RCC (Rec: 08/24/18 09:41 RCC [email or web address]) Physical Therapy Assessment Assessment Summary Assessment Pt overall attended 6 total physical therapy sessions, and reported improving with manual therapy and electrical stimulation. However, pt did not return following her 6th visit and did not show up for 4 consecutive appointments. Pt was called twice and reminded of follow up appointments, but she did not respond or show up. Per our cancel/no show policy, pt will be discharged at this time due to non-compliance, and was notified of same prior to her final visit she did not show up for. Objective measures were unable to be re-assessed, as pt did not attend follow- up appointments. Recommend pt return to [facility] if pain persists or worsens for additional alternative options at this time. Physical Therapy Plan Discharge Physical Therapy Discharge Reasons No Longer Attending PT
== END 2018-08-24 13:47 ==
LOC: PHYS 12:15
PROVIDERS: PCP Family Medicine; Visit Provider Internal Medicine
DX: M53.3 Sacrococcygeal disorders, not elsewhere classified (principal); G89.29 Other chronic pain
CPT/HCPCS: 97014; 97035; 97110; 97140; 97162; G0283

== ENCOUNTER → 2018-11-15 08:19 | Outpatient (CLI) | payer OTHER, MEDICAID, SELFPAY | PROVIDERS: PCP Family Medicine; Visit Provider Family Medicine ==

== ENCOUNTER → 2018-12-01 10:00 | Outpatient (CLI) | payer OTHER, MEDICAID, SELFPAY ==
[2018-12-01 10:59] LABS: Add Manual Diff / Slide Review NO; Basophils Absolute Auto 100 /uL (0-100); Basophils Percent Auto 1.3 % (0-2); Eosinophils Absolute Auto 100 /uL (0-450); Eosinophils Percent Auto 0.8 % (2-4); Hematocrit 46.1 % (36-46); Hemoglobin 15.8 g/dL (12.0-16.0); Lymphocytes Absolute Auto 2300 /uL (1100-4500); Lymphocytes Percent Auto 29.1 % (25-40); Mean Corpuscular HGB Conc 34.2 % (30-36); Mean Corpuscular Hemoglobin 34.6 PG (26-34); Monocytes Absolute Auto 300 /uL (0-900); Monocytes Percent Auto 4.3 % (3-14); Neutrophils Absolute Auto 5100 /uL (1500-7000); Neutrophils Percent Auto 64.5 % (50-75); Platelet Count 293 X10^3/uL (150-400); Red Blood Cell Count 4.57 X10^6/uL (4.0-5.2); Red Cell Distribution Width 12.9 % (11.6-14.8)
[2018-12-01 11:04] LABS: Alanine Aminotransferase 48 IU/L (9-52); Albumin 4.2 g/dL (3.5-5.0); Albumin Globulin Ratio 1.3 (1.0-2.8); Alkaline Phosphatase 91 U/L (38-126); Aspartate Aminotransferase 47 IU/L (14-36); BUN Creatinine Ratio 8.8 (6-22); Bilirubin Total 0.5 mg/dL (0.2-1.3); Blood Urea Nitrogen 7 mg/dL (7-17); Calcium 9.6 mg/dL (8.4-10.2); Carbon Dioxide 30 mmol/L (22-32); Chloride 103 mmol/L (98-107); Cholesterol 214 mg/dL (140-199); Estimated Glomerular Filt Rate > 60.0 mL/min (>60); Globulin 3.2 g/dL (1.7-4.1); Glucose 97 mg/dL (70-100); HDL Cholesterol 56 mg/dL (40-60); HEMOLYSIS < 15 (0-50); LDL Cholesterol Calculated 135 mg/dL (<100); Potassium 4.6 mmol/L (3.4-5.1); Sodium 140 mmol/L (137-145); Total Protein 7.4 g/dL (6.3-8.2); Triglycerides 114 mg/dL (35-150)
[2018-12-01 11:26] LABS: TSH w/ Reflex to FT4 0.92 uIU/mL (0.47-4.68)
== END ==
PROVIDERS: PCP Family Medicine; Visit Provider Family Medicine
DX: Z00.00 Encounter for general adult medical examination without abnormal findings (principal); Z13.220 Encounter for screening for lipoid disorders; E03.9 Hypothyroidism, unspecified
CPT/HCPCS: 36415; 80053; 80061; 84443; 85025

== ENCOUNTER → 2018-12-08 10:43 | Outpatient (CLI) | payer OTHER, MEDICAID, SELFPAY ==
--- NOTE | 2018-12-08 10:44 | DI.US.S_ITS ---
PROCEDURE: US PERIPH VENOUS LOW EXTREM RT INDICATIONS: swelling posterior knee laterally TECHNIQUE: Real-time imaging, as well as color and pulse Doppler interrogation, were performed of the lower extremity deep veins from the inguinal ligament to the popliteal fossa. COMPARISON: None. FINDINGS: The common femoral, femoral and popliteal veins are normally compressible, and free of intraluminal thrombus. Color and pulse Doppler demonstrate normal phasic intraluminal flow. There is normal augmentation response to distal compression maneuver. Don's cyst is present measuring 5.3 x 2.2 x 4.6 cm. Some internal low level echoes, presumably debris. This is within the area of palpable abnormality. IMPRESSION: No evidence of deep venous thrombosis. Large Don cyst as above. Dictated by: Dominik Guillory M.D. on 12/08/2018 at 11:46 Approved by: Dominik Guillory M.D. on 12/08/2018 at 11:47
== END ==
PROVIDERS: PCP Family Medicine; Visit Provider Family Medicine
DX: M25.461 Effusion, right knee (principal); M71.20 Synovial cyst of popliteal space [Baker], unspecified knee; M25.561 Pain in right knee
CPT/HCPCS: 93971

== ENCOUNTER → 2019-05-10 12:32 | Outpatient (CLI) | payer OTHER, MEDICAID, SELFPAY ==
[2019-05-10 14:03] LABS: Alanine Aminotransferase 23 IU/L (9-52); Albumin 4.1 g/dL (3.5-5.0); Albumin Globulin Ratio 1.3 (1.0-2.8); Alkaline Phosphatase 107 U/L (38-126); Aspartate Aminotransferase 29 IU/L (14-36); Bilirubin Total 0.7 mg/dL (0.2-1.3); Blood Urea Nitrogen 8 mg/dL (7-17); Carbon Dioxide 27 mmol/L (22-32); Chloride 104 mmol/L (98-107); Estimated Glomerular Filt Rate > 60.0 mL/min (>60); Globulin 3.2 g/dL (1.7-4.1); Glucose 92 mg/dL (70-100); HEMOLYSIS < 15 (0-50); Potassium 4.4 mmol/L (3.4-5.1); Sodium 140 mmol/L (137-145); Total Protein 7.3 g/dL (6.3-8.2)
== END ==
PROVIDERS: PCP Family Medicine; Visit Provider Family Medicine
DX: Z79.1 Long term (current) use of non-steroidal anti-inflammatories (NSAID) (principal); M17.0 Bilateral primary osteoarthritis of knee
CPT/HCPCS: 36415; 80053

== ENCOUNTER → 2019-08-09 11:14 | Outpatient (CLI) | payer OTHER, MEDICAID, SELFPAY ==
[2019-08-09 12:03] LABS: Add Manual Diff / Slide Review NO; Basophils Absolute Auto 100 /uL (0-100); Basophils Percent Auto 0.9 % (0-2); Eosinophils Absolute Auto 100 /uL (0-450); Eosinophils Percent Auto 0.9 % (2-4); Hematocrit 44.9 % (36-46); Hemoglobin 15.6 g/dL (12.0-16.0); Lymphocytes Absolute Auto 1900 /uL (1100-4500); Lymphocytes Percent Auto 24.5 % (25-40); Mean Corpuscular HGB Conc 34.7 % (30-36); Mean Corpuscular Hemoglobin 35.5 PG (26-34); Mean Corpuscular Volume 102.2 fL (80-100); Monocytes Absolute Auto 500 /uL (0-900); Monocytes Percent Auto 6.1 % (3-14); Neutrophils Absolute Auto 5300 /uL (1500-7000); Neutrophils Percent Auto 67.6 % (50-75); Platelet Count 281 X10^3/uL (150-400); Red Blood Cell Count 4.39 X10^6/uL (4.0-5.2); Red Cell Distribution Width 12.6 % (11.6-14.8); White Blood Cell Count 7.8 X10^3/uL (4.5-11.0)
[2019-08-09 12:17] LABS: Alanine Aminotransferase 42 IU/L (<35); Albumin 4.1 g/dL (3.5-5.0); Albumin Globulin Ratio 1.3 (1.0-2.8); Alkaline Phosphatase 87 U/L (38-126); Aspartate Aminotransferase 47 IU/L (14-36); BUN Creatinine Ratio 8.8 (6-22); Bilirubin Total 0.5 mg/dL (0.2-1.3); Blood Urea Nitrogen 7 mg/dL (7-17); Calcium 9.6 mg/dL (8.4-10.2); Carbon Dioxide 32 mmol/L (22-32); Chloride 104 mmol/L (98-107); Estimated Glomerular Filt Rate > 60.0 mL/min (>60); Globulin 3.2 g/dL (1.7-4.1); Glucose 93 mg/dL (70-100); HEMOLYSIS < 15 (0-50); Lipase 96 U/L (23-300); Sodium 140 mmol/L (137-145); Total Protein 7.3 g/dL (6.3-8.2)
== END ==
PROVIDERS: PCP Family Medicine; Visit Provider Family Medicine
DX: F10.21 Alcohol dependence, in remission (principal); I10 Essential (primary) hypertension; R10.9 Unspecified abdominal pain
CPT/HCPCS: 36415; 80053; 83690; 85025

== ENCOUNTER → 2019-08-11 09:46 | Outpatient (CLI) | payer OTHER, MEDICAID, SELFPAY ==
--- NOTE | 2019-08-11 09:47 | DI.US.S_ITS ---
PROCEDURE: US ABDOMEN COMPLETE INDICATIONS: RIGHT UPPER QUADRANT PAIN TECHNIQUE: Real-time scanning was performed of the abdominal and retroperitoneal organs, with image documentation. COMPARISON: [facility], US, ABDOMEN COMPLETE, 11/16/2016, 8:24. FINDINGS: Liver: Liver is normal in size and homogeneous in echotexture. Increased liver proximal echotexture is seen with patchy areas of sparing. Gallbladder: Gallbladder is within normal limits. No sonographic Whitaker's sign. Biliary ducts: Intrahepatic bile ducts are non-dilated. Extrahepatic bile duct caliber measures 5 mm. Normal is 6-7 mm or less in diameter, or 10 mm or less post-cholecystectomy. Pancreas: Visualized portions of the pancreas are sonographically normal. Spleen: Spleen is normal in size and homogeneous in echotexture. Kidneys: Kidneys are normal in size and echotexture. Right kidney measures 12.4 cm long; left kidney measures 12.6 cm long. No hydronephrosis or nephrolithiasis. No solid masses. Aorta: Visualized aorta is normal in caliber at less than 3 cm. Iliacs: Proximal common iliac arteries are normal in caliber at less than 2.5 cm. IVC: Intrahepatic inferior vena cava is patent. Miscellaneous: No free abdominal fluid. IMPRESSION: Hepatic steatosis, no discrete hepatic lesion. Rest of the exam is unremarkable. Dictated by: Abhinav Wilson M.D. on 08/11/2019 at 12:07 Approved by: Abhinav Wilson M.D. on 08/11/2019 at 12:09
== END ==
PROVIDERS: PCP Family Medicine; Visit Provider Family Medicine
DX: R10.9 Unspecified abdominal pain (principal); K76.0 Fatty (change of) liver, not elsewhere classified; I10 Essential (primary) hypertension; F10.21 Alcohol dependence, in remission
CPT/HCPCS: 76700

== ENCOUNTER → 2020-01-23 10:37 | Outpatient (CLI) | payer OTHER, MEDICAID, SELFPAY ==
[2020-01-24 10:46] LABS: COVID19 Sendout NOT DETECTED (Not Detect)
== END ==
PROVIDERS: PCP Family Medicine; Visit Provider Nurse Practitioner
DX: Z01.812 Encounter for preprocedural laboratory examination (principal)
CPT/HCPCS: 87635

== ENCOUNTER → 2020-01-26 08:47 | Outpatient (CLI) | payer OTHER, MEDICAID, SELFPAY ==
--- NOTE | 2020-02-02 08:23 | PM.PFT.1 ---
Pulmonary Function Test Referral & Results Date Patient Seen: 01/26/20 Requesting provider: Cindy Lake Results: The spirometry demonstrates an FVC of 3.29 L which is 86% of predicted. The FEV1 was measured at 2.30 L which is 77% of predicted. The FEV1/FVC ratio was 70 which is 88% of predicted. Following the administration of bronchodilator there was I 13% improvement in FEV1 and a 62% improvement in FEF 25-75%. Lung volumes show an SVC of 3.04 L which is 88% of predicted. The diffusing capacity was measured at 24.27 which is 85% of predicted. The maximum voluntary ventilation was reduced Interpretation: This study demonstrates mild obstructive lung disease based on reduction FEV1. There is evidence of some minor improvement following bronchodilator based on 13% improvement in FEV1 and a more significant improvement in small airway flow based on change in FEF 25-75%
== END ==
PROVIDERS: PCP Family Medicine; Referring Provider Family Medicine; Visit Provider Family Medicine
DX: R06.02 Shortness of breath (principal); F17.290 Nicotine dependence, other tobacco product, uncomplicated
CPT/HCPCS: 94060; 94726; 94729

== ENCOUNTER → 2020-05-02 | Outpatient (CLI) | payer OTHER, MEDICAID, SELFPAY | PROVIDERS: PCP Family Medicine; Referring Provider Internal Medicine; Visit Provider Internal Medicine | DX: Z23 Encounter for immunization (principal) | CPT/HCPCS: 90471; 90686 ==

== ENCOUNTER → 2020-05-20 06:40 | Outpatient (CLI) | payer OTHER, MEDICAID, SELFPAY ==
[2020-05-20 08:08] LABS: Add Manual Diff / Slide Review NO; Basophils Absolute Auto 100 /uL (0-100); Basophils Percent Auto 0.8 % (0-2); Eosinophils Absolute Auto 100 /uL (0-450); Eosinophils Percent Auto 0.7 % (2-4); Hematocrit 43.7 % (36-46); Hemoglobin 14.9 g/dL (12.0-16.0); Lymphocytes Absolute Auto 2200 /uL (1100-4500); Lymphocytes Percent Auto 19.5 % (25-40); Mean Corpuscular HGB Conc 34.1 % (30-36); Mean Corpuscular Hemoglobin 34.3 PG (26-34); Mean Corpuscular Volume 100.6 fL (80-100); Monocytes Absolute Auto 600 /uL (0-900); Neutrophils Absolute Auto 8300 /uL (1500-7000); Platelet Count 279 X10^3/uL (150-400); Red Blood Cell Count 4.34 X10^6/uL (4.0-5.2); Red Cell Distribution Width 12.8 % (11.6-14.8); White Blood Cell Count 11.2 X10^3/uL (4.5-11.0)
[2020-05-20 08:28] LABS: Alanine Aminotransferase 21 IU/L (<35); Albumin Globulin Ratio 1.1 (1.0-2.8); Alkaline Phosphatase 110 U/L (38-126); Aspartate Aminotransferase 24 IU/L (14-36); Bilirubin Total 0.5 mg/dL (0.2-1.3); Blood Urea Nitrogen 16 mg/dL (7-17); Calcium 9.2 mg/dL (8.4-10.2); Carbon Dioxide 27 mmol/L (22-32); Chloride 108 mmol/L (98-107); Cholesterol 213 mg/dL (140-199); Estimated Glomerular Filt Rate > 60.0 mL/min (>60); Globulin 3.5 g/dL (1.7-4.1); Glucose 103 mg/dL (70-100); HDL Cholesterol 46 mg/dL (40-60); HEMOLYSIS < 15 (0-50); LDL Cholesterol Calculated 115 mg/dL (<100); Sodium 139 mmol/L (137-145); Total Protein 7.5 g/dL (6.3-8.2); Triglycerides 258 mg/dL (35-150)
[2020-05-20 08:56] LABS: TSH w/ Reflex to FT4 1.28 uIU/mL (0.47-4.68)
[2020-05-20 09:32] LABS: Folate 5.9 ng/mL (2.76-20.0); Vitamin B12 273 pg/mL (239-931)
== END ==
PROVIDERS: PCP Family Medicine; Referring Provider Family Medicine; Visit Provider Family Medicine
DX: D75.89 Other specified diseases of blood and blood-forming organs (principal); E03.9 Hypothyroidism, unspecified; I10 Essential (primary) hypertension; K76.0 Fatty (change of) liver, not elsewhere classified
CPT/HCPCS: 36415; 80053; 80061; 82607; 82746; 84443; 85025

== ENCOUNTER → 2020-06-18 09:55 | Outpatient (CLI) | payer OTHER, MEDICAID, SELFPAY | PROVIDERS: PCP Family Medicine; Referring Provider Family Medicine; Visit Provider Family Medicine | DX: M85.88 Other specified disorders of bone density and structure, other site (principal); N95.9 Unspecified menopausal and perimenopausal disorder | CPT/HCPCS: 77080 ==

== ENCOUNTER → 2020-08-08 08:35 | Outpatient (CLI) | payer OTHER, MEDICAID, SELFPAY ==
[2020-08-08] MEDS: COVID-19 VACC(MODERNA-1)/PF 100 MCG/0.5 ML VIAL IM (08:39)
== END ==
PROVIDERS: PCP Family Medicine; Visit Provider Internal Medicine
DX: Z23 Encounter for immunization (principal)
CPT/HCPCS: 0011A; 91301

== ENCOUNTER → 2020-09-04 08:35 | Outpatient (CLI) | payer OTHER, MEDICAID, SELFPAY ==
[2020-09-04] MEDS: COVID-19 VACC #2, MRNA(MOD) 100 MCG/0.5 ML VIAL IM (08:41)
== END ==
PROVIDERS: PCP Family Medicine; Visit Provider Internal Medicine
DX: Z23 Encounter for immunization (principal)
CPT/HCPCS: 0012A; 91301

== ENCOUNTER 2020-12-26 09:00 | Outpatient (RCR) | payer OTHER, MEDICAID, SELFPAY ==
--- NOTE | 2020-11-28 15:10 | PT.OIE ---
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 (10/23/11) Anxiety (10/06/11) Bronchitis Chicken pox Conjunctivitis COPD (chronic obstructive pulmonary disease) Depression Exercise-induced asthma (10/06/11) Gastroesophageal reflux disease with esophagitis (08/05/12) Heavy menstrual period Hepatic steatosis History of recurrent ear infection Hypothyroidism (10/06/11) Insomnia Moderate alcohol use disorder, in early remission (10/07/16) Mumps Neuropathy of right ulnar nerve at wrist (12/04/16) Osteoarthritis of both knees (02/21/16) Osteopenia after menopause Seasonal allergies Thyroid nodule (~06/2012) Tobacco use disorder (10/06/11) Trochanteric bursitis, right hip Past Surgical History (Last Updated 06/06/18 @ 20:08 by Lucita Tripp) Anesthesia History of esophagogastroduodenoscopy (EGD) (08/03/12) History of sinus surgery (~1992) History of tonsillectomy (~1968) History of use of contraceptive intrauterine device (IUD) (~12/23/11) Status post colonoscopy (08/03/12) Status post tubal ligation (~1996) Visit Care Team Role Provider Type Cindy Lake DO Attending Provider Physician Family Provider Primary Care Provider Referring Provider Specialty: Family Practice Address: [address] [place] [address], [address], [facility] Email: [email or web address] Physical Therapy Initial Evaluation PT-OP-A Visit Information Start: 11/28/20 14:37 Freq: Status: Active Protocol: Document 11/28/20 14:38 HH (Rec: 11/28/20 15:09 [email or web address]) Out-Patient Physical Therapy Visit Information Visit Information Visit Type Initial Evaluation Visit Start Time 13:00 Visit Stop Time 13:45 Total Visit Minutes 45 Visit Number 08/25 Number of SPRING MACHINE OPERATOR Visits 0 Evaluation Information Evaluation Date 11/28/20 PT-OP-B Current Condition Start: 11/28/20 14:37 Freq: Status: Active Protocol: Document 11/28/20 14:38 HH (Rec: 11/28/20 15:09 [email or web address]) Current Condition History of Current Condition Onset Date >10 years ago Current Complaints Bilateral knee pain, difficulty in walking and working History of Current Condition Annelise is a 55 yo female here today because of painful knees bilaterally. Pt stated her R knee started hurting more than 10 years ago and her L one started last year. Pain mostly located anteriorly at sides of both knee caps which is worse with prolonged WB activities such as walking, standing and working. Denies stiffness / clicking/ hotness/ swelling. She normally takes 4 ibuprofen 800mg twice for her pain, especially night time since her knee pain wakes her up at night. 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 She currently works 2-3 days per week. Pt went to see Orthpedist Dr. Winter who suspect meniscus tear but no signs of OA d/t negative findings on Xray. Prior Treatments and Tests pt has histroy of bakers cyst on R side and she was drained multiple times without much improvements. pt stated there's no signs of OA d/t negative findings on Xray as stated. Treatment Goals Patient/Caregiver Goals 1. To reduce overall knee pain so she can stand / walk/ working 2. To strengthen both legs PT-OP-C Subjective Start: 11/28/20 14:37 Freq: Status: Active Protocol: Document 11/28/20 14:38 HH (Rec: 11/28/20 15:09 [email or web address]) Patient Questionnaires Lower Extremity Functional Scale LEFS Score 53 LEFS Impairment 20 to 39% Impaired (Score 48- 62) OP-PT Pain Assessment Location Both knees Pain Location Details anterior knee pain Intensity 4 Scale Used Numeric (0 - 10) Description Aching,Pressure Frequency Frequent Pain Aggravating Factors Activity,Exercise,Standing, Walking,Lifting Pain Alleviating Factors Inactivity PT-OP-D Balance Start: 11/28/20 14:37 Freq: Status: Active Protocol: Document 11/28/20 14:38 HH (Rec: 11/28/20 15:09 [email or web address]) Balance Tests Single Limb Standing Single Limb- Right >20 Single Limb- Left >20 PT-OP-F Manual Assessment Start: 11/28/20 14:37 Freq: Status: Active Protocol: Document 11/28/20 14:38 (Rec: 11/28/20 15:09 [email or web address]) Manual Assessments Soft Tissue Assessment Soft Tissue Mobility Assessment significant hypertonicity at bilateral quads and hip adductors. tenderness to pressure at patella tendon Joint Mobility Assessment Joint Mobility Assessment patellofemoral joint = WFL no laxity noted for valgus/ varus force at b knees. PT-OP-K Range of Motion Start: 11/28/20 14:37 Freq: Status: Active Protocol: Document 11/28/20 14:38 HH (Rec: 11/28/20 15:09 [email or web address]) Knee Goniometric Range of Motion Knee Right Knee ROM WFL Yes Patient Position Supine Flexion Active (degrees) 140 Extension Active (degrees) 0 Left Knee ROM WFL Yes Patient Position Supine Flexion Active (degrees) 140 Extension Active (degrees) 0 Knee ROM Limitations Knee ROM Limitations Pain PT-OP-L Special Tests Start: 11/28/20 14:37 Freq: Status: Active Protocol: Document 11/28/20 14:38 HH (Rec: 11/28/20 15:09 [email or web address]) Special Tests Hip Special Tests Jenaro Test Results +ve B Comments L knee is 20 degree off table, heel is 30 degrees off vertical line r knee is // to table, heel is 20 degrees off vertical line Knee Special Tests Apley's Compression Test Results -ve B Dav Test Test Results -ve B Kj's Sign Test Results +VE L>R Varus- 0 Degrees Test Results -ve B no laxity noted Varus- 25 Degrees Test Results -ve B no laxity noted Valgus- 25 Degrees Test Results -ve B no laxity noted Valgus- 0 Degrees Test Results -ve B no laxity noted PT-OP-M Strength Start: 11/28/20 14:37 Freq: Status: Active Protocol: Document 11/28/20 14:38 (Rec: 11/28/20 15:09 [email or web address]) Hip Strength Hip Manual Muscle Testing Right Flexion (L2) 4+ Good+ Extension (S1) 4+ Good+ Abduction 4 Good Adduction 4+ Good+ Left Flexion (L2) 4+ Good+ Extension (S1) 4+ Good+ Abduction 4 Good Adduction 4+ Good+ Knee Strength Knee Manual Muscle Testing Left Flexion (S2) 4 Good Extension (L3) 4+ Good+ Comments painful arc for extension, starts at last 20 degrees of extension Right Flexion (S2) 4 Good Extension (L3) 4+ Good+ Comments painful arc for extension, starts at last 20 degrees of extension PT-OP-Q Treatments Start: 11/28/20 14:37 Freq: Status: Active Protocol: Document 11/28/20 14:38 (Rec: 11/28/20 15:09 [email or web address]) Therapeutic Exercises Supine Exercises jenaro stretch Supine Exercise Name for quad Side bilateral Equipment Used long towel Comments for HEP Sitting Exercises rolling pin Sitting Exercise Name on quads and adductors Side bilateral Reps/Minutes 4 mins Comments for HEP Manual Therapy Treatment Soft Tissue Mobilization hip adductors Body Location bilateral Mobilization Type Rolling,Sustained Pressure, Trigger Point Release Intensity/Depth Moderate Body Position Supine Comments significant tonicity noted quads Body Location bilateral Mobilization Type Rolling,Sustained Pressure, Trigger Point Release Intensity/Depth Moderate Body Position Supine Comments significant tonicity noted PT-OP-T Assessment and Plan Start: 11/28/20 14:37 Freq: Status: Active Protocol: Document 11/28/20 14:38 (Rec: 11/28/20 15:09 [email or web address]) Physical Therapy Assessment Rehab Potential Rehabilitation Potential Excellent Evaluation Complexity Number of Personal Factors/Comorbidities 1-2 Number of Body Systems Impaired 1-2 Clinical Presentation at Evaluation Stable Impairments Impairments Activity Tolerance,Balance, Functional Activities, Functional Mobility,Gait,Pain, Posture,ROM,Soft Tissue Mobility,Strength,Transfers Goals strength Short Term Goal (STG) pt will be able to complete squat 8 times without increase in knee discomfort STG Duration 4 weeks Client Director Goal (LTG) pt will be able to complete squat 12 times without increase in knee discomfort so she can squat during work constantly without irritation LTG Duration 8 weeks HEP Impairment pt does not have HEP Fdc Goal (LTG) pt will be able to complete HEP safely and independently at least 4 times/ week LTG Duration 4 weeks pain Impairment pt has pain 4/10 constantly Short Term Goal (STG) pt will have pain no more than 4/10 after her work days and able to sleep at nigth without waking up >4 times /week STG Duration 4 weeks Client Director Goal (LTG) pt will not need to take pain medication for her knee pain and able to sleep without being interrupted by her knee pain. LTG Duration 8 weeks LEFS Impairment pt scores 53 on LEFS Short Term Goal (STG) pt will score >60 on LEFS to improve her oveall quality of life STG Duration 4 weeks Client Director Goal (LTG) pt will score >65 on LEFS to improve her oveall quality of life LTG Duration 8 weeks Assessment Summary Assessment Annelise is a 55 yo female for her chronic knee pain bilaterally. There's no known injury/ signs of OA based on her negative X-ray finding. Upon assessment, pt shows signs of patella tendinopathy and possible mild OA at patellofemoral joint. She has significant tightness at both quads which possibly increase mechanical stress at patellofemoral joint. There's no signs of meniscus tear/ ligamentous injury, along with WNL knee ROM. Pt will benefit from skilled therapy to improve her quad tightness, overall LE strength in order for her to perform her job without discomfort. Physical Therapy Plan Frequency and Duration Frequency of Treatment 2x/Week Duration of Treatment 8 weeks Plan of Care Start Date 11/28/20 Plan of Care End Date 01/27/21 Therapeutic Interventions Therapeutic Interventions Aquatic Therapy,Balance Training,Gait Training,Home Exercise Program,Joint Mobilizations,Manual Therapy, Neuromuscular Re-education, Patient/Caregiver Education, Self-Care/Home Management,Soft Tissue Mobilization,Taping, Therapeutic Activities, Therapeutic Exercises Modalities Biofeedback,Cold Pack/Ice Massage,Electric Stimulation, Hot Packs,Infrared Therapy, Iontophoresis Next Visit Focus/Plan Next Note Type Treatment Note Next Visit Plan quad stretch rolling pin isometric quad knee extension HS curl
--- NOTE | 2020-11-28 15:10 | PT.OPPOC ---
Physical, Occupational & Speech Therapy At [facility] Current Diagnoses Pain in left knee (11/28/20) Visit Care Team Role Provider Type Cindy Lake DO Attending Provider Physician Family Provider Primary Care Provider Referring Provider Specialty: Family Practice Address: [address] [place] [address], [address], [facility] Email: [email or web address] Plan Of Care PT-OP-T Assessment and Plan Start: 11/28/20 14:37 Freq: Status: Active Protocol: Document 11/28/20 14:38 HH (Rec: 11/28/20 15:09 [email or web address]) Physical Therapy Assessment Rehab Potential Rehabilitation Potential Excellent Evaluation Complexity Number of Personal Factors/Comorbidities 1-2 Number of Body Systems Impaired 1-2 Clinical Presentation at Evaluation Stable Impairments Impairments Activity Tolerance,Balance, Functional Activities, Functional Mobility,Gait,Pain, Posture,ROM,Soft Tissue Mobility,Strength,Transfers Goals strength Short Term Goal (STG) pt will be able to complete squat 8 times without increase in knee discomfort STG Duration 4 weeks Senior Care Goal (LTG) pt will be able to complete squat 12 times without increase in knee discomfort so she can squat during work constantly without irritation LTG Duration 8 weeks HEP Impairment pt does not have HEP Senior Care Goal (LTG) pt will be able to complete HEP safely and independently at least 4 times/ week LTG Duration 4 weeks pain Impairment pt has pain 4/10 constantly Short Term Goal (STG) pt will have pain no more than 4/10 after her work days and able to sleep at nigth without waking up >4 times /week STG Duration 4 weeks Flatbed Stitcher Goal (LTG) pt will not need to take pain medication for her knee pain and able to sleep without being interrupted by her knee pain. LTG Duration 8 weeks LEFS Impairment pt scores 53 on LEFS Short Term Goal (STG) pt will score >60 on LEFS to improve her oveall quality of life STG Duration 4 weeks Senior Care Goal (LTG) pt will score >65 on LEFS to improve her oveall quality of life LTG Duration 8 weeks Assessment Summary Assessment Annelise is a 55 yo female for her chronic knee pain bilaterally. There's no known injury/ signs of OA based on her negative X-ray finding. Upon assessment, pt shows signs of patella tendinopathy and possible mild OA at patellofemoral joint. She has significant tightness at both quads which possibly increase mechanical stress at patellofemoral joint. There's no signs of meniscus tear/ ligamentous injury, along with WNL knee ROM. Pt will benefit from skilled therapy to improve her quad tightness, overall LE strength in order for her to perform her job without discomfort. Physical Therapy Plan Frequency and Duration Frequency of Treatment 2x/Week Duration of Treatment 8 weeks Plan of Care Start Date 11/28/20 Plan of Care End Date 01/27/21 Therapeutic Interventions Therapeutic Interventions Aquatic Therapy,Balance Training,Gait Training,Home Exercise Program,Joint Mobilizations,Manual Therapy, Neuromuscular Re-education, Patient/Caregiver Education, Self-Care/Home Management,Soft Tissue Mobilization,Taping, Therapeutic Activities, Therapeutic Exercises Modalities Biofeedback,Cold Pack/Ice Massage,Electric Stimulation, Hot Packs,Infrared Therapy, Iontophoresis Next Visit Focus/Plan Next Note Type Treatment Note Next Visit Plan quad stretch rolling pin isometric quad knee extension HS curl Plan of Care Dates Plan of Care Start Date 11/28/20 Plan of Care End Date 01/27/21 Electronically Signed by: Cisco Parnell PT 11/28/20 [id number] Please Sign and Return: I have reviewed this Plan of Care and certify that the skilled therapy services above are required to meet the patient?s needs. Physician Signature Date Printed Name and Credentials Clinical Instructor Signature Printed Name and Credentials
--- NOTE | 2020-12-05 11:14 | PT.OTN ---
Current Diagnoses Pain in left knee (12/05/20) Physical Therapy Treatment Note PT-OP-A Visit Information Start: 11/28/20 14:37 Freq: Status: Active Protocol: Document 12/05/20 10:35 HH (Rec: 12/05/20 11:12 [id number]) Out-Patient Physical Therapy Visit Information Visit Information Visit Type Treatment Note Visit Start Time 10:34 Visit Stop Time 11:15 Total Visit Minutes 41 Visit Number 09/25 Number of GOLD MINER Visits 0 PT-OP-B Current Condition Start: 11/28/20 14:37 Freq: Status: Active Protocol: Document 11/28/20 14:38 HH (Rec: 11/28/20 15:09 [email or web address]) Current Condition History of Current Condition Onset Date >10 years ago Current Complaints Bilateral knee pain, difficulty in walking and working History of Current Condition Annelise is a 55 yo female here today because of painful knees bilaterally. Pt stated her R knee started hurting more than 10 years ago and her L one started last year. Pain mostly located anteriorly at sides of both knee caps which is worse with prolonged WB activities such as walking, standing and working. Denies stiffness / clicking/ hotness/ swelling. She normally takes 4 ibuprofen 800mg twice for her pain, especially night time since her knee pain wakes her up at night. 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 She currently works 2-3 days per week. Pt went to see Orthpedist Dr. Winter who suspect meniscus tear but no signs of OA d/t negative findings on Xray. Prior Treatments and Tests pt has histroy of bakers cyst on R side and she was drained multiple times without much improvements. pt stated there's no signs of OA d/t negative findings on Xray as stated. Treatment Goals Patient/Caregiver Goals 1. To reduce overall knee pain so she can stand / walk/ working 2. To strengthen both legs PT-OP-C Subjective Start: 11/28/20 14:37 Freq: Status: Active Protocol: Document 12/05/20 10:35 HH (Rec: 12/05/20 11:12 [id number]) OP-PT Subjective Patient Comments Patient Comments Nalini been rolling my quads and it gets sore but less and less after. My L knee gave out on me a few times yesterday and i dont know why. PT-OP-D Balance Start: 11/28/20 14:37 Freq: Status: Active Protocol: Document 11/28/20 14:38 HH (Rec: 11/28/20 15:09 [email or web address]) Balance Tests Single Limb Standing Single Limb- Right >20 Single Limb- Left >20 PT-OP-F Manual Assessment Start: 11/28/20 14:37 Freq: Status: Active Protocol: Document 11/28/20 14:38 HH (Rec: 11/28/20 15:09 [email or web address]) Manual Assessments Soft Tissue Assessment Soft Tissue Mobility Assessment significant hypertonicity at bilateral quads and hip adductors. tenderness to pressure at patella tendon Joint Mobility Assessment Joint Mobility Assessment patellofemoral joint = WFL no laxity noted for valgus/ varus force at b knees. PT-OP-K Range of Motion Start: 11/28/20 14:37 Freq: Status: Active Protocol: Document 11/28/20 14:38 HH (Rec: 11/28/20 15:09 [email or web address]) Knee Goniometric Range of Motion Knee Right Knee ROM WFL Yes Patient Position Supine Flexion Active (degrees) 140 Extension Active (degrees) 0 Left Knee ROM WFL Yes Patient Position Supine Flexion Active (degrees) 140 Extension Active (degrees) 0 Knee ROM Limitations Knee ROM Limitations Pain PT-OP-L Special Tests Start: 11/28/20 14:37 Freq: Status: Active Protocol: Document 11/28/20 14:38 HH (Rec: 11/28/20 15:09 [email or web address]) Special Tests Hip Special Tests Jenaro Test Results +ve B Comments L knee is 20 degree off table, heel is 30 degrees off vertical line r knee is // to table, heel is 20 degrees off vertical line Knee Special Tests Apley's Compression Test Results -ve B Dav Test Test Results -ve B Kj's Sign Test Results +VE L>R Varus- 0 Degrees Test Results -ve B no laxity noted Varus- 25 Degrees Test Results -ve B no laxity noted Valgus- 25 Degrees Test Results -ve B no laxity noted Valgus- 0 Degrees Test Results -ve B no laxity noted PT-OP-M Strength Start: 11/28/20 14:37 Freq: Status: Active Protocol: Document 11/28/20 14:38 (Rec: 11/28/20 15:09 [email or web address]) Hip Strength Hip Manual Muscle Testing Right Flexion (L2) 4+ Good+ Extension (S1) 4+ Good+ Abduction 4 Good Adduction 4+ Good+ Left Flexion (L2) 4+ Good+ Extension (S1) 4+ Good+ Abduction 4 Good Adduction 4+ Good+ Knee Strength Knee Manual Muscle Testing Left Flexion (S2) 4 Good Extension (L3) 4+ Good+ Comments painful arc for extension, starts at last 20 degrees of extension Right Flexion (S2) 4 Good Extension (L3) 4+ Good+ Comments painful arc for extension, starts at last 20 degrees of extension PT-OP-Q Treatments Start: 11/28/20 14:37 Freq: Status: Active Protocol: Document 12/05/20 10:35 (Rec: 12/05/20 11:12 [id number]) Therapeutic Exercises Supine Exercises jenaro stretch Supine Exercise Name for quad Side bilateral Equipment Used long towel Comments for HEP Prone Exercises hamstring curl Side bilateral Reps/Minutes 10 x 2 Comments for HEP Sitting Exercises trunk flexion Sitting Exercise Name seated trunk flexion Reps/Minutes 10 x 2 Comments for HEP LAQ Side bilateral Reps/Minutes 10 x2 Comments for HEP Standing Exercises wall squat Standing Exercise Name wall squat hold Side bilateral Reps/Minutes 15 sec hold x 5 Comments for HEP Manual Therapy Treatment Soft Tissue Mobilization quads Body Location bilateral Mobilization Type Rolling,Sustained Pressure, Trigger Point Release Intensity/Depth Moderate Body Position Supine Comments significant tonicity noted R piriformis Body Location R Mobilization Type Strumming Intensity/Depth Moderate Body Position Sidelying PT-OP-T Assessment and Plan Start: 11/28/20 14:37 Freq: Status: Active Protocol: Document 12/05/20 10:35 (Rec: 12/05/20 11:12 [id number]) Physical Therapy Assessment Goals strength Short Term Goal (STG) pt will be able to complete squat 8 times without increase in knee discomfort STG Duration 4 weeks Center Mgr Goal (LTG) pt will be able to complete squat 12 times without increase in knee discomfort so she can squat during work constantly without irritation LTG Duration 8 weeks HEP Impairment pt does not have HEP Longterm Goal (LTG) pt will be able to complete HEP safely and independently at least 4 times/ week LTG Duration 4 weeks gait Impairment antalgic gait LTG Duration 10 weeks weakness Impairment LE weakness STG Duration 5 weeks LTG Duration 10 weeks pain Impairment pt has pain 4/10 constantly Short Term Goal (STG) pt will have pain no more than 4/10 after her work days and able to sleep at nigth without waking up >4 times /week STG Duration 4 weeks Center Mgr Goal (LTG) pt will not need to take pain medication for her knee pain and able to sleep without being interrupted by her knee pain. LTG Duration 8 weeks LEFS Impairment pt scores 53 on LEFS Short Term Goal (STG) pt will score >60 on LEFS to improve her oveall quality of life STG Duration 4 weeks Longterm Goal (LTG) pt will score >65 on LEFS to improve her oveall quality of life LTG Duration 8 weeks Assessment Summary Assessment Pt reports of L knee gave out episodes recently. Did ACL testing today and noticed pt has some laxity at L knee which indicate possible ACL involvement. Will cont monitor pt's progress. Provided pt LAQ, hamstring curl and wall squat today. Pt ericka session very well. Physical Therapy Plan Frequency and Duration Frequency of Treatment 2x/Week Duration of Treatment 8 weeks Plan of Care Start Date 11/28/20 Plan of Care End Date 01/27/21 Therapeutic Interventions Therapeutic Interventions Aquatic Therapy,Balance Training,Gait Training,Home Exercise Program,Joint Mobilizations,Manual Therapy, Neuromuscular Re-education, Patient/Caregiver Education, Self-Care/Home Management,Soft Tissue Mobilization,Taping, Therapeutic Activities, Therapeutic Exercises Modalities Biofeedback,Cold Pack/Ice Massage,Electric Stimulation, Hot Packs,Infrared Therapy, Iontophoresis Next Visit Focus/Plan Next Note Type Treatment Note Next Visit Plan quad stretch rolling pin isometric quad knee extension HS curl
--- NOTE | 2020-12-09 09:04 | PT.OTN ---
Current Diagnoses Pain in left knee (12/09/20) Physical Therapy Treatment Note PT-OP-A Visit Information Start: 11/28/20 14:37 Freq: Status: Active Protocol: Document 12/09/20 08:18 HH (Rec: 12/09/20 09:03 [id number]) Out-Patient Physical Therapy Visit Information Visit Information Visit Type Treatment Note Visit Start Time 08:17 Visit Stop Time 09:00 Total Visit Minutes 43 Visit Number 10/23 Number of SALES FACILITATOR Visits 0 PT-OP-B Current Condition Start: 11/28/20 14:37 Freq: Status: Active Protocol: Document 11/28/20 14:38 HH (Rec: 11/28/20 15:09 [email or web address]) Current Condition History of Current Condition Onset Date >10 years ago Current Complaints Bilateral knee pain, difficulty in walking and working History of Current Condition Annelise is a 55 yo female here today because of painful knees bilaterally. Pt stated her R knee started hurting more than 10 years ago and her L one started last year. Pain mostly located anteriorly at sides of both knee caps which is worse with prolonged WB activities such as walking, standing and working. Denies stiffness / clicking/ hotness/ swelling. She normally takes 4 ibuprofen 800mg twice for her pain, especially night time since her knee pain wakes her up at night. 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 She currently works 2-3 days per week. Pt went to see Orthpedist Dr. Winter who suspect meniscus tear but no signs of OA d/t negative findings on Xray. Prior Treatments and Tests pt has histroy of bakers cyst on R side and she was drained multiple times without much improvements. pt stated there's no signs of OA d/t negative findings on Xray as stated. Treatment Goals Patient/Caregiver Goals 1. To reduce overall knee pain so she can stand / walk/ working 2. To strengthen both legs PT-OP-C Subjective Start: 11/28/20 14:37 Freq: Status: Active Protocol: Document 12/09/20 08:18 HH (Rec: 12/09/20 09:03 [id number]) OP-PT Subjective Patient Comments Patient Comments My knees have been bothering me and the buckling is still happening. I didnt do anything strenuous and i havent been working as well Patient Reported Progress Same PT-OP-D Balance Start: 11/28/20 14:37 Freq: Status: Active Protocol: Document 11/28/20 14:38 HH (Rec: 11/28/20 15:09 [email or web address]) Balance Tests Single Limb Standing Single Limb- Right >20 Single Limb- Left >20 PT-OP-F Manual Assessment Start: 11/28/20 14:37 Freq: Status: Active Protocol: Document 11/28/20 14:38 HH (Rec: 11/28/20 15:09 [email or web address]) Manual Assessments Soft Tissue Assessment Soft Tissue Mobility Assessment significant hypertonicity at bilateral quads and hip adductors. tenderness to pressure at patella tendon Joint Mobility Assessment Joint Mobility Assessment patellofemoral joint = WFL no laxity noted for valgus/ varus force at b knees. PT-OP-K Range of Motion Start: 11/28/20 14:37 Freq: Status: Active Protocol: Document 11/28/20 14:38 HH (Rec: 11/28/20 15:09 [email or web address]) Knee Goniometric Range of Motion Knee Right Knee ROM WFL Yes Patient Position Supine Flexion Active (degrees) 140 Extension Active (degrees) 0 Left Knee ROM WFL Yes Patient Position Supine Flexion Active (degrees) 140 Extension Active (degrees) 0 Knee ROM Limitations Knee ROM Limitations Pain PT-OP-L Special Tests Start: 11/28/20 14:37 Freq: Status: Active Protocol: Document 11/28/20 14:38 (Rec: 11/28/20 15:09 [email or web address]) Special Tests Hip Special Tests Jenaro Test Results +ve B Comments L knee is 20 degree off table, heel is 30 degrees off vertical line r knee is // to table, heel is 20 degrees off vertical line Knee Special Tests Apley's Compression Test Results -ve B Dav Test Test Results -ve B Kj's Sign Test Results +VE L>R Varus- 0 Degrees Test Results -ve B no laxity noted Varus- 25 Degrees Test Results -ve B no laxity noted Valgus- 25 Degrees Test Results -ve B no laxity noted Valgus- 0 Degrees Test Results -ve B no laxity noted PT-OP-M Strength Start: 04/29/21 14:37 Freq: Status: Active Protocol: Document 11/28/20 14:38 HH (Rec: 11/28/20 15:09 [email or web address]) Hip Strength Hip Manual Muscle Testing Right Flexion (L2) 4+ Good+ Extension (S1) 4+ Good+ Abduction 4 Good Adduction 4+ Good+ Left Flexion (L2) 4+ Good+ Extension (S1) 4+ Good+ Abduction 4 Good Adduction 4+ Good+ Knee Strength Knee Manual Muscle Testing Left Flexion (S2) 4 Good Extension (L3) 4+ Good+ Comments painful arc for extension, starts at last 20 degrees of extension Right Flexion (S2) 4 Good Extension (L3) 4+ Good+ Comments painful arc for extension, starts at last 20 degrees of extension PT-OP-Q Treatments Start: 11/28/20 14:37 Freq: Status: Active Protocol: Document 12/09/20 08:18 HH (Rec: 12/09/20 09:03 [id number]) Cardio Equipment Bicycle (Upright) Duration (Minutes) 10 Resistance 5 Seat Position 4 Gym Equipment Shuttle Recovery B squat Details yellow band at knees Resistance #62 12x 2 Shuttle Recovery Platform Stable Reps/Time cues on abducted hips Therapeutic Exercises Supine Exercises jenaro stretch Supine Exercise Name for quad Side bilateral Equipment Used long towel Comments for HEP Piriformis stretch Supine Exercise Name knee to opposite chest Side right Reps/Minutes 10 sec hold x5 bridging Side bilateral Reps/Minutes 8x2 Sitting Exercises LAQ Side bilateral Reps/Minutes 10 x2 Manual Therapy Treatment Soft Tissue Mobilization quads Body Location bilateral Mobilization Type Rolling,Sustained Pressure, Trigger Point Release Intensity/Depth Moderate Body Position Supine Comments reduced tonicity noted R piriformis Body Location Bilateral Mobilization Type Strumming Intensity/Depth Moderate Body Position Sidelying Comments hypertonicty noted. PT-OP-T Assessment and Plan Start: 11/28/20 14:37 Freq: Status: Active Protocol: Document 12/09/20 08:18 HH (Rec: 12/09/20 09:03 [id number]) Physical Therapy Assessment Goals strength Short Term Goal (STG) pt will be able to complete squat 8 times without increase in knee discomfort STG Duration 4 weeks Correction Goal (LTG) pt will be able to complete squat 12 times without increase in knee discomfort so she can squat during work constantly without irritation LTG Duration 8 weeks HEP Impairment pt does not have HEP Workers Compensation Analyst Goal (LTG) pt will be able to complete HEP safely and independently at least 4 times/ week LTG Duration 4 weeks pain Impairment pt has pain 4/10 constantly Short Term Goal (STG) pt will have pain no more than 4/10 after her work days and able to sleep at nigth without waking up >4 times /week STG Duration 4 weeks Workers Compensation Analyst Goal (LTG) pt will not need to take pain medication for her knee pain and able to sleep without being interrupted by her knee pain. LTG Duration 8 weeks LEFS Impairment pt scores 53 on LEFS Short Term Goal (STG) pt will score >60 on LEFS to improve her oveall quality of life STG Duration 4 weeks Workers Compensation Analyst Goal (LTG) pt will score >65 on LEFS to improve her oveall quality of life LTG Duration 8 weeks Assessment Summary Assessment Pt reports of achy/ soreness discomfort after last session which i believe it's d/t DOMS. I also noticed pt tends to amb with small steps possibly d/t her chronic hip pain and stiffness. Will add hip stretches next sesion as well. Physical Therapy Plan Frequency and Duration Frequency of Treatment 2x/Week Duration of Treatment 8 weeks Plan of Care Start Date 11/28/20 Plan of Care End Date 01/27/21 Therapeutic Interventions Therapeutic Interventions Aquatic Therapy,Balance Training,Gait Training,Home Exercise Program,Joint Mobilizations,Manual Therapy, Neuromuscular Re-education, Patient/Caregiver Education, Self-Care/Home Management,Soft Tissue Mobilization,Taping, Therapeutic Activities, Therapeutic Exercises Modalities Biofeedback,Cold Pack/Ice Massage,Electric Stimulation, Hot Packs,Infrared Therapy, Iontophoresis Next Visit Focus/Plan Next Note Type Treatment Note Next Visit Plan quad stretch rolling pin isometric quad knee extension HS curl
--- NOTE | 2020-12-12 08:58 | PT.OTN ---
Current Diagnoses Pain in left knee (12/12/20) Physical Therapy Treatment Note PT-OP-A Visit Information Start: 11/28/20 14:37 Freq: Status: Active Protocol: Document 12/12/20 08:15 HH (Rec: 12/12/20 08:58 [id number]) Out-Patient Physical Therapy Visit Information Visit Information Visit Type Treatment Note Visit Start Time 08:17 Visit Stop Time 09:00 Total Visit Minutes 43 Visit Number 10/23 Number of HEALTH SAFETY ENGINEER Visits 0 PT-OP-B Current Condition Start: 11/28/20 14:37 Freq: Status: Active Protocol: Document 11/28/20 14:38 HH (Rec: 11/28/20 15:09 [email or web address]) Current Condition History of Current Condition Onset Date >10 years ago Current Complaints Bilateral knee pain, difficulty in walking and working History of Current Condition Annelise is a 55 yo female here today because of painful knees bilaterally. Pt stated her R knee started hurting more than 10 years ago and her L one started last year. Pain mostly located anteriorly at sides of both knee caps which is worse with prolonged WB activities such as walking, standing and working. Denies stiffness / clicking/ hotness/ swelling. She normally takes 4 ibuprofen 800mg twice for her pain, especially night time since her knee pain wakes her up at night. 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 She currently works 2-3 days per week. Pt went to see Orthpedist Dr. Winter who suspect meniscus tear but no signs of OA d/t negative findings on Xray. Prior Treatments and Tests pt has histroy of bakers cyst on R side and she was drained multiple times without much improvements. pt stated there's no signs of OA d/t negative findings on Xray as stated. Treatment Goals Patient/Caregiver Goals 1. To reduce overall knee pain so she can stand / walk/ working 2. To strengthen both legs PT-OP-C Subjective Start: 11/28/20 14:37 Freq: Status: Active Protocol: Document 12/12/20 08:15 HH (Rec: 12/12/20 08:58 [id number]) OP-PT Subjective Patient Comments Patient Comments I feel pretty good and i didnt get too sore from last time. I still have those buckling episodes and i dont know why PT-OP-D Balance Start: 11/28/20 14:37 Freq: Status: Active Protocol: Document 11/28/20 14:38 HH (Rec: 11/28/20 15:09 [email or web address]) Balance Tests Single Limb Standing Single Limb- Right >20 Single Limb- Left >20 PT-OP-F Manual Assessment Start: 11/28/20 14:37 Freq: Status: Active Protocol: Document 11/28/20 14:38 HH (Rec: 11/28/20 15:09 [email or web address]) Manual Assessments Soft Tissue Assessment Soft Tissue Mobility Assessment significant hypertonicity at bilateral quads and hip adductors. tenderness to pressure at patella tendon Joint Mobility Assessment Joint Mobility Assessment patellofemoral joint = WFL no laxity noted for valgus/ varus force at b knees. PT-OP-K Range of Motion Start: 11/28/20 14:37 Freq: Status: Active Protocol: Document 11/28/20 14:38 HH (Rec: 11/28/20 15:09 [email or web address]) Knee Goniometric Range of Motion Knee Right Knee ROM WFL Yes Patient Position Supine Flexion Active (degrees) 140 Extension Active (degrees) 0 Left Knee ROM WFL Yes Patient Position Supine Flexion Active (degrees) 140 Extension Active (degrees) 0 Knee ROM Limitations Knee ROM Limitations Pain PT-OP-L Special Tests Start: 11/28/20 14:37 Freq: Status: Active Protocol: Document 11/28/20 14:38 HH (Rec: 11/28/20 15:09 [email or web address]) Special Tests Hip Special Tests Jenaro Test Results +ve B Comments L knee is 20 degree off table, heel is 30 degrees off vertical line r knee is // to table, heel is 20 degrees off vertical line Knee Special Tests Apley's Compression Test Results -ve B Dav Test Test Results -ve B Kj's Sign Test Results +VE L>R Varus- 0 Degrees Test Results -ve B no laxity noted Varus- 25 Degrees Test Results -ve B no laxity noted Valgus- 25 Degrees Test Results -ve B no laxity noted Valgus- 0 Degrees Test Results -ve B no laxity noted PT-OP-M Strength Start: 11/28/20 14:37 Freq: Status: Active Protocol: Document 11/28/20 14:38 HH (Rec: 11/28/20 15:09 [email or web address]) Hip Strength Hip Manual Muscle Testing Right Flexion (L2) 4+ Good+ Extension (S1) 4+ Good+ Abduction 4 Good Adduction 4+ Good+ Left Flexion (L2) 4+ Good+ Extension (S1) 4+ Good+ Abduction 4 Good Adduction 4+ Good+ Knee Strength Knee Manual Muscle Testing Left Flexion (S2) 4 Good Extension (L3) 4+ Good+ Comments painful arc for extension, starts at last 20 degrees of extension Right Flexion (S2) 4 Good Extension (L3) 4+ Good+ Comments painful arc for extension, starts at last 20 degrees of extension PT-OP-Q Treatments Start: 11/28/20 14:37 Freq: Status: Active Protocol: Document 12/12/20 08:15 HH (Rec: 12/12/20 08:58 [id number]) Gym Equipment Shuttle Recovery B squat Details yellow band at knees Resistance #62 12x 2 Shuttle Recovery Platform Stable Reps/Time cues on abducted hips Therapeutic Exercises Supine Exercises pelvic tilt Reps/Minutes 10 x1 Comments cues on PPT jenaro stretch Supine Exercise Name for quad Side bilateral Equipment Used long towel Comments for HEP Piriformis stretch Supine Exercise Name knee to opposite chest Side right Reps/Minutes 10 sec hold x5 bridging Supine Exercise Name with PPT Side bilateral Reps/Minutes 8x2 Standing Exercises pelvic tilt Reps/Minutes 10 x2 Comments tactile cues for PPT Manual Therapy Treatment Soft Tissue Mobilization quads Body Location bilateral Mobilization Type Rolling,Sustained Pressure, Trigger Point Release Intensity/Depth Moderate Body Position Supine Comments reduced tonicity noted R piriformis Body Location Bilateral Mobilization Type Strumming Intensity/Depth Moderate Body Position Sidelying Comments hypertonicty noted. PT-OP-T Assessment and Plan Start: 11/28/20 14:37 Freq: Status: Active Protocol: Document 12/12/20 08:15 HH (Rec: 12/12/20 08:58 [id number]) Physical Therapy Assessment Goals strength Short Term Goal (STG) pt will be able to complete squat 8 times without increase in knee discomfort STG Duration 4 weeks Custodial Goal (LTG) pt will be able to complete squat 12 times without increase in knee discomfort so she can squat during work constantly without irritation LTG Duration 8 weeks HEP Impairment pt does not have HEP Marine Engine Driver Goal (LTG) pt will be able to complete HEP safely and independently at least 4 times/ week LTG Duration 4 weeks pain Impairment pt has pain 4/10 constantly Short Term Goal (STG) pt will have pain no more than 4/10 after her work days and able to sleep at nigth without waking up >4 times /week STG Duration 4 weeks Marine Engine Driver Goal (LTG) pt will not need to take pain medication for her knee pain and able to sleep without being interrupted by her knee pain. LTG Duration 8 weeks LEFS Impairment pt scores 53 on LEFS Short Term Goal (STG) pt will score >60 on LEFS to improve her oveall quality of life STG Duration 4 weeks Custodial Goal (LTG) pt will score >65 on LEFS to improve her oveall quality of life LTG Duration 8 weeks Assessment Summary Assessment Spent time on gait and postural analysis today and noticed pt has significant anterior pelvic tilt who tends to hyperextend her knees. Educated pt to practice posterior pelvic tilt to reach better vertical alignment and she reports her knee pain got less. Will f/u her progress next visit. Physical Therapy Plan Frequency and Duration Frequency of Treatment 2x/Week Duration of Treatment 8 weeks Plan of Care Start Date 11/28/20 Plan of Care End Date 01/27/21 Therapeutic Interventions Therapeutic Interventions Aquatic Therapy,Balance Training,Gait Training,Home Exercise Program,Joint Mobilizations,Manual Therapy, Neuromuscular Re-education, Patient/Caregiver Education, Self-Care/Home Management,Soft Tissue Mobilization,Taping, Therapeutic Activities, Therapeutic Exercises Modalities Biofeedback,Cold Pack/Ice Massage,Electric Stimulation, Hot Packs,Infrared Therapy, Iontophoresis Next Visit Focus/Plan Next Note Type Treatment Note Next Visit Plan quad stretch rolling pin isometric quad knee extension HS curl
--- NOTE | 2020-12-16 09:46 | PT.OTN ---
Current Diagnoses Pain in left knee (12/16/20) Physical Therapy Treatment Note PT-OP-A Visit Information Start: 11/28/20 14:37 Freq: Status: Active Protocol: Document 12/16/20 09:01 (Rec: 12/16/20 09:45 [id number]) Out-Patient Physical Therapy Visit Information Visit Information Visit Type Treatment Note Visit Start Time 09:03 Visit Stop Time 09:45 Total Visit Minutes 42 Visit Number 12/23 Number of COMMUNITY SUPPORT SPECIALIST Visits 0 PT-OP-B Current Condition Start: 11/28/20 14:37 Freq: Status: Active Protocol: Document 11/28/20 14:38 HH (Rec: 11/28/20 15:09 [email or web address]) Current Condition History of Current Condition Onset Date >10 years ago Current Complaints Bilateral knee pain, difficulty in walking and working History of Current Condition Annelise is a 55 yo female here today because of painful knees bilaterally. Pt stated her R knee started hurting more than 10 years ago and her L one started last year. Pain mostly located anteriorly at sides of both knee caps which is worse with prolonged WB activities such as walking, standing and working. Denies stiffness / clicking/ hotness/ swelling. She normally takes 4 ibuprofen 800mg twice for her pain, especially night time since her knee pain wakes her up at night. 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 She currently works 2-3 days per week. Pt went to see Orthpedist Dr. Winter who suspect meniscus tear but no signs of OA d/t negative findings on Xray. Prior Treatments and Tests pt has histroy of bakers cyst on R side and she was drained multiple times without much improvements. pt stated there's no signs of OA d/t negative findings on Xray as stated. Treatment Goals Patient/Caregiver Goals 1. To reduce overall knee pain so she can stand / walk/ working 2. To strengthen both legs PT-OP-C Subjective Start: 11/28/20 14:37 Freq: Status: Active Protocol: Document 12/16/20 09:01 (Rec: 12/16/20 09:45 [id number]) OP-PT Subjective Patient Comments Patient Comments My knees are feeling good and using the pelvic tilt does take a lot of pressure off my knees. Thien been trying to walking with my pelvic tilted as well Patient Reported Progress Improving PT-OP-D Balance Start: 11/28/20 14:37 Freq: Status: Active Protocol: Document 11/28/20 14:38 HH (Rec: 11/28/20 15:09 [email or web address]) Balance Tests Single Limb Standing Single Limb- Right >20 Single Limb- Left >20 PT-OP-F Manual Assessment Start: 11/28/20 14:37 Freq: Status: Active Protocol: Document 11/28/20 14:38 HH (Rec: 11/28/20 15:09 [email or web address]) Manual Assessments Soft Tissue Assessment Soft Tissue Mobility Assessment significant hypertonicity at bilateral quads and hip adductors. tenderness to pressure at patella tendon Joint Mobility Assessment Joint Mobility Assessment patellofemoral joint = WFL no laxity noted for valgus/ varus force at b knees. PT-OP-K Range of Motion Start: 11/28/20 14:37 Freq: Status: Active Protocol: Document 11/28/20 14:38 HH (Rec: 11/28/20 15:09 [email or web address]) Knee Goniometric Range of Motion Knee Right Knee ROM WFL Yes Patient Position Supine Flexion Active (degrees) 140 Extension Active (degrees) 0 Left Knee ROM WFL Yes Patient Position Supine Flexion Active (degrees) 140 Extension Active (degrees) 0 Knee ROM Limitations Knee ROM Limitations Pain PT-OP-L Special Tests Start: 11/28/20 14:37 Freq: Status: Active Protocol: Document 11/28/20 14:38 HH (Rec: 11/28/20 15:09 [email or web address]) Special Tests Hip Special Tests Jenaro Test Results +ve B Comments L knee is 20 degree off table, heel is 30 degrees off vertical line r knee is // to table, heel is 20 degrees off vertical line Knee Special Tests Apley's Compression Test Results -ve B Dav Test Test Results -ve B Kj's Sign Test Results +VE L>R Varus- 0 Degrees Test Results -ve B no laxity noted Varus- 25 Degrees Test Results -ve B no laxity noted Valgus- 25 Degrees Test Results -ve B no laxity noted Valgus- 0 Degrees Test Results -ve B no laxity noted PT-OP-M Strength Start: 11/28/20 14:37 Freq: Status: Active Protocol: Document 11/28/20 14:38 (Rec: 11/28/20 15:09 [email or web address]) Hip Strength Hip Manual Muscle Testing Right Flexion (L2) 4+ Good+ Extension (S1) 4+ Good+ Abduction 4 Good Adduction 4+ Good+ Left Flexion (L2) 4+ Good+ Extension (S1) 4+ Good+ Abduction 4 Good Adduction 4+ Good+ Knee Strength Knee Manual Muscle Testing Left Flexion (S2) 4 Good Extension (L3) 4+ Good+ Comments painful arc for extension, starts at last 20 degrees of extension Right Flexion (S2) 4 Good Extension (L3) 4+ Good+ Comments painful arc for extension, starts at last 20 degrees of extension PT-OP-Q Treatments Start: 11/28/20 14:37 Freq: Status: Active Protocol: Document 12/16/20 09:01 (Rec: 12/16/20 09:45 [id number]) Gym Equipment Shuttle Recovery B squat Details yellow band at knees Resistance #62 15x2 Shuttle Recovery Platform Stable Reps/Time cues on abducted hips Therapeutic Exercises Supine Exercises pelvic tilt Reps/Minutes 10 x1 Comments cues on PPT, improved control today jenaro stretch Supine Exercise Name for quad Side bilateral Equipment Used long towel Comments for HEP Piriformis stretch Supine Exercise Name knee to opposite chest Side right Reps/Minutes 10 sec hold x5 bridging Supine Exercise Name with PPT Side bilateral Equipment Used yellow band at knees Reps/Minutes 10 x2 Sitting Exercises trunk flexion Sitting Exercise Name seated trunk flexion Reps/Minutes 10 x 2 Standing Exercises step up Standing Exercise Name slow step up Reps/Minutes 10 x2 Comments with PPT SLS Standing Exercise Name with PPT and knee slightly bent Reps/Minutes 20 sec x 4 pelvic tilt Reps/Minutes 10 x2 Comments tactile cues for PPT Manual Therapy Treatment Soft Tissue Mobilization R piriformis Body Location Bilateral Mobilization Type Strumming Intensity/Depth Moderate Body Position Sidelying Comments reduced hypertonicty noted. PT-OP-T Assessment and Plan Start: 11/28/20 14:37 Freq: Status: Active Protocol: Document 12/16/20 09:01 (Rec: 12/16/20 09:45 [id number]) Physical Therapy Assessment Goals strength Short Term Goal (STG) pt will be able to complete squat 8 times without increase in knee discomfort STG Duration 4 weeks Photovoltaic Solar Cell Designer Goal (LTG) pt will be able to complete squat 12 times without increase in knee discomfort so she can squat during work constantly without irritation LTG Duration 8 weeks HEP Impairment pt does not have HEP Fpc Goal (LTG) pt will be able to complete HEP safely and independently at least 4 times/ week LTG Duration 4 weeks gait Impairment antalgic gait LTG Duration 10 weeks weakness Impairment LE weakness STG Duration 5 weeks LTG Duration 10 weeks pain Impairment pt has pain 4/10 constantly Short Term Goal (STG) pt will have pain no more than 4/10 after her work days and able to sleep at nigth without waking up >4 times /week STG Duration 4 weeks Photovoltaic Solar Cell Designer Goal (LTG) pt will not need to take pain medication for her knee pain and able to sleep without being interrupted by her knee pain. LTG Duration 8 weeks LEFS Impairment pt scores 53 on LEFS Short Term Goal (STG) pt will score >60 on LEFS to improve her oveall quality of life STG Duration 4 weeks Fpc Goal (LTG) pt will score >65 on LEFS to improve her oveall quality of life LTG Duration 8 weeks Assessment Summary Assessment Pt reports improved knee pain by being able to engage PPT. She also shows improved pelvic control. Will continue add stability/ SL strength ex as ericka. Physical Therapy Plan Frequency and Duration Frequency of Treatment 2x/Week Duration of Treatment 8 weeks Plan of Care Start Date 11/28/20 Plan of Care End Date 01/27/21 Therapeutic Interventions Therapeutic Interventions Aquatic Therapy,Balance Training,Gait Training,Home Exercise Program,Joint Mobilizations,Manual Therapy, Neuromuscular Re-education, Patient/Caregiver Education, Self-Care/Home Management,Soft Tissue Mobilization,Taping, Therapeutic Activities, Therapeutic Exercises Modalities Biofeedback,Cold Pack/Ice Massage,Electric Stimulation, Hot Packs,Infrared Therapy, Iontophoresis Next Visit Focus/Plan Next Note Type Treatment Note Next Visit Plan quad stretch rolling pin isometric quad knee extension HS curl
--- NOTE | 2020-12-19 09:43 | PT.OTN ---
Current Diagnoses Pain in left knee (12/19/20) Physical Therapy Treatment Note PT-OP-A Visit Information Start: 11/28/20 14:37 Freq: Status: Active Protocol: Document 12/19/20 08:58 HH (Rec: 12/19/20 09:43 [id number]) Out-Patient Physical Therapy Visit Information Visit Information Visit Type Treatment Note Visit Start Time 09:02 Visit Stop Time 09:45 Total Visit Minutes 43 Visit Number 01/23 Number of FILLING WINDER Visits 0 PT-OP-B Current Condition Start: 11/28/20 14:37 Freq: Status: Active Protocol: Document 11/28/20 14:38 HH (Rec: 11/28/20 15:09 HH [email or web address]) Current Condition History of Current Condition Onset Date >10 years ago Current Complaints Bilateral knee pain, difficulty in walking and working History of Current Condition Annelise is a 55 yo female here today because of painful knees bilaterally. Pt stated her R knee started hurting more than 10 years ago and her L one started last year. Pain mostly located anteriorly at sides of both knee caps which is worse with prolonged WB activities such as walking, standing and working. Denies stiffness / clicking/ hotness/ swelling. She normally takes 4 ibuprofen 800mg twice for her pain, especially night time since her knee pain wakes her up at night. 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 She currently works 2-3 days per week. Pt went to see Orthpedist Dr. Winter who suspect meniscus tear but no signs of OA d/t negative findings on Xray. Prior Treatments and Tests pt has histroy of bakers cyst on R side and she was drained multiple times without much improvements. pt stated there's no signs of OA d/t negative findings on Xray as stated. Treatment Goals Patient/Caregiver Goals 1. To reduce overall knee pain so she can stand / walk/ working 2. To strengthen both legs PT-OP-C Subjective Start: 11/28/20 14:37 Freq: Status: Active Protocol: Document 12/19/20 08:58 HH (Rec: 12/19/20 09:43 HH [id number]) OP-PT Subjective Patient Comments Patient Comments I accidentally burnt my lower part of the abdominal by the gravy from the crockpot. So i gotta take it easy today. My knees are doing pretty good and i can go downstairs without much problem now. Patient Reported Progress Improving PT-OP-D Balance Start: 11/28/20 14:37 Freq: Status: Active Protocol: Document 11/28/20 14:38 HH (Rec: 11/28/20 15:09 [email or web address]) Balance Tests Single Limb Standing Single Limb- Right >20 Single Limb- Left >20 PT-OP-F Manual Assessment Start: 11/28/20 14:37 Freq: Status: Active Protocol: Document 11/28/20 14:38 HH (Rec: 11/28/20 15:09 [email or web address]) Manual Assessments Soft Tissue Assessment Soft Tissue Mobility Assessment significant hypertonicity at bilateral quads and hip adductors. tenderness to pressure at patella tendon Joint Mobility Assessment Joint Mobility Assessment patellofemoral joint = WFL no laxity noted for valgus/ varus force at b knees. PT-OP-K Range of Motion Start: 11/28/20 14:37 Freq: Status: Active Protocol: Document 11/28/20 14:38 HH (Rec: 11/28/20 15:09 [email or web address]) Knee Goniometric Range of Motion Knee Right Knee ROM WFL Yes Patient Position Supine Flexion Active (degrees) 140 Extension Active (degrees) 0 Left Knee ROM WFL Yes Patient Position Supine Flexion Active (degrees) 140 Extension Active (degrees) 0 Knee ROM Limitations Knee ROM Limitations Pain PT-OP-L Special Tests Start: 11/28/20 14:37 Freq: Status: Active Protocol: Document 11/28/20 14:38 (Rec: 11/28/20 15:09 [email or web address]) Special Tests Hip Special Tests Jenaro Test Results +ve B Comments L knee is 20 degree off table, heel is 30 degrees off vertical line r knee is // to table, heel is 20 degrees off vertical line Knee Special Tests Apley's Compression Test Results -ve B Dav Test Test Results -ve B Kj's Sign Test Results +VE L>R Varus- 0 Degrees Test Results -ve B no laxity noted Varus- 25 Degrees Test Results -ve B no laxity noted Valgus- 25 Degrees Test Results -ve B no laxity noted Valgus- 0 Degrees Test Results -ve B no laxity noted PT-OP-M Strength Start: 11/28/20 14:37 Freq: Status: Active Protocol: Document 11/28/20 14:38 (Rec: 11/28/20 15:09 [email or web address]) Hip Strength Hip Manual Muscle Testing Right Flexion (L2) 4+ Good+ Extension (S1) 4+ Good+ Abduction 4 Good Adduction 4+ Good+ Left Flexion (L2) 4+ Good+ Extension (S1) 4+ Good+ Abduction 4 Good Adduction 4+ Good+ Knee Strength Knee Manual Muscle Testing Left Flexion (S2) 4 Good Extension (L3) 4+ Good+ Comments painful arc for extension, starts at last 20 degrees of extension Right Flexion (S2) 4 Good Extension (L3) 4+ Good+ Comments painful arc for extension, starts at last 20 degrees of extension PT-OP-Q Treatments Start: 11/28/20 14:37 Freq: Status: Active Protocol: Document 12/19/20 08:58 (Rec: 12/19/20 09:43 [id number]) Cardio Equipment Bicycle (Upright) Duration (Minutes) 6 Resistance 5 Gym Equipment Shuttle Recovery B squat Details yellow band at knees Resistance #62 15x2 Shuttle Recovery Platform Stable Reps/Time cues on abducted hips Therapeutic Exercises Supine Exercises pelvic tilt Reps/Minutes 10 x1 Comments cues on PPT, improved control today jenaro stretch Supine Exercise Name for quad Side bilateral Equipment Used long towel Comments for HEP bridging Supine Exercise Name with PPT Side bilateral Equipment Used yellow band at knees Reps/Minutes 10 x2 Sitting Exercises trunk flexion Sitting Exercise Name seated trunk flexion Reps/Minutes 10 x 2 Standing Exercises monster walk Equipment Used yellow band squat Equipment Used yellow band at knees Reps/Minutes 8 x 2 Comments for HEP step up Standing Exercise Name slow step up Equipment Used 4 inches then 6 inches Reps/Minutes 10 x3 Comments with PPT pelvic tilt Reps/Minutes 10 x2 Comments tactile cues for PPT PT-OP-T Assessment and Plan Start: 11/28/20 14:37 Freq: Status: Active Protocol: Document 12/19/20 08:58 (Rec: 12/19/20 09:43 [id number]) Physical Therapy Assessment Goals strength Short Term Goal (STG) pt will be able to complete squat 8 times without increase in knee discomfort STG Duration 4 weeks Alf Goal (LTG) pt will be able to complete squat 12 times without increase in knee discomfort so she can squat during work constantly without irritation LTG Duration 8 weeks HEP Impairment pt does not have HEP Digital Media Producer Goal (LTG) pt will be able to complete HEP safely and independently at least 4 times/ week LTG Duration 4 weeks pain Impairment pt has pain 4/10 constantly Short Term Goal (STG) pt will have pain no more than 4/10 after her work days and able to sleep at nigth without waking up >4 times /week STG Duration 4 weeks Alf Goal (LTG) pt will not need to take pain medication for her knee pain and able to sleep without being interrupted by her knee pain. LTG Duration 8 weeks LEFS Impairment pt scores 53 on LEFS Short Term Goal (STG) pt will score >60 on LEFS to improve her oveall quality of life STG Duration 4 weeks Digital Media Producer Goal (LTG) pt will score >65 on LEFS to improve her oveall quality of life LTG Duration 8 weeks Assessment Summary Assessment Pt states her ability going downstairs is better than before with less pain. Pt shows very good pelvic tilt control and postural awareness . Added a consolidated HEP with focus on knee and hip strengthening today. Will review with her next visit. Physical Therapy Plan Frequency and Duration Frequency of Treatment 2x/Week Duration of Treatment 8 weeks Plan of Care Start Date 11/28/20 Plan of Care End Date 01/27/21 Therapeutic Interventions Therapeutic Interventions Aquatic Therapy,Balance Training,Gait Training,Home Exercise Program,Joint Mobilizations,Manual Therapy, Neuromuscular Re-education, Patient/Caregiver Education, Self-Care/Home Management,Soft Tissue Mobilization,Taping, Therapeutic Activities, Therapeutic Exercises Modalities Biofeedback,Cold Pack/Ice Massage,Electric Stimulation, Hot Packs,Infrared Therapy, Iontophoresis Next Visit Focus/Plan Next Note Type Treatment Note Next Visit Plan quad stretch rolling pin isometric quad knee extension HS curl
--- NOTE | 2020-12-23 09:43 | PT.OTN ---
Current Diagnoses Pain in left knee (12/23/20) Physical Therapy Treatment Note PT-OP-A Visit Information Start: 11/28/20 14:37 Freq: Status: Active Protocol: Document 12/23/20 09:05 (Rec: 12/23/20 09:43 [id number]) Out-Patient Physical Therapy Visit Information Visit Information Visit Type Treatment Note Visit Start Time 09:43 Visit Stop Time 09:45 Total Visit Minutes 42 Visit Number 02/22 Number of ARCHITECTURAL DESIGN LECTURER Visits 0 PT-OP-B Current Condition Start: 11/28/20 14:37 Freq: Status: Active Protocol: Document 11/28/20 14:38 HH (Rec: 11/28/20 15:09 [email or web address]) Current Condition History of Current Condition Onset Date >10 years ago Current Complaints Bilateral knee pain, difficulty in walking and working History of Current Condition Annelise is a 55 yo female here today because of painful knees bilaterally. Pt stated her R knee started hurting more than 10 years ago and her L one started last year. Pain mostly located anteriorly at sides of both knee caps which is worse with prolonged WB activities such as walking, standing and working. Denies stiffness / clicking/ hotness/ swelling. She normally takes 4 ibuprofen 800mg twice for her pain, especially night time since her knee pain wakes her up at night. 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 She currently works 2-3 days per week. Pt went to see Orthpedist Dr. Winter who suspect meniscus tear but no signs of OA d/t negative findings on Xray. Prior Treatments and Tests pt has histroy of bakers cyst on R side and she was drained multiple times without much improvements. pt stated there's no signs of OA d/t negative findings on Xray as stated. Treatment Goals Patient/Caregiver Goals 1. To reduce overall knee pain so she can stand / walk/ working 2. To strengthen both legs PT-OP-C Subjective Start: 11/28/20 14:37 Freq: Status: Active Protocol: Document 12/23/20 09:05 (Rec: 12/23/20 09:43 [id number]) OP-PT Subjective Patient Comments Patient Comments My knee is doing okay and try to do more stairs without holding onto the bars. Patient Reported Progress Improving PT-OP-D Balance Start: 11/28/20 14:37 Freq: Status: Active Protocol: Document 11/28/20 14:38 HH (Rec: 11/28/20 15:09 HH [email or web address]) Balance Tests Single Limb Standing Single Limb- Right >20 Single Limb- Left >20 PT-OP-F Manual Assessment Start: 11/28/20 14:37 Freq: Status: Active Protocol: Document 11/28/20 14:38 HH (Rec: 11/28/20 15:09 HH [email or web address]) Manual Assessments Soft Tissue Assessment Soft Tissue Mobility Assessment significant hypertonicity at bilateral quads and hip adductors. tenderness to pressure at patella tendon Joint Mobility Assessment Joint Mobility Assessment patellofemoral joint = WFL no laxity noted for valgus/ varus force at b knees. PT-OP-K Range of Motion Start: 11/28/20 14:37 Freq: Status: Active Protocol: Document 11/28/20 14:38 HH (Rec: 11/28/20 15:09 [email or web address]) Knee Goniometric Range of Motion Knee Right Knee ROM WFL Yes Patient Position Supine Flexion Active (degrees) 140 Extension Active (degrees) 0 Left Knee ROM WFL Yes Patient Position Supine Flexion Active (degrees) 140 Extension Active (degrees) 0 Knee ROM Limitations Knee ROM Limitations Pain PT-OP-L Special Tests Start: 11/28/20 14:37 Freq: Status: Active Protocol: Document 11/28/20 14:38 HH (Rec: 11/28/20 15:09 [email or web address]) Special Tests Hip Special Tests Jenaro Test Results +ve B Comments L knee is 20 degree off table, heel is 30 degrees off vertical line r knee is // to table, heel is 20 degrees off vertical line Knee Special Tests Apley's Compression Test Results -ve B Dav Test Test Results -ve B Kj's Sign Test Results +VE L>R Varus- 0 Degrees Test Results -ve B no laxity noted Varus- 25 Degrees Test Results -ve B no laxity noted Valgus- 25 Degrees Test Results -ve B no laxity noted Valgus- 0 Degrees Test Results -ve B no laxity noted PT-OP-M Strength Start: 11/28/20 14:37 Freq: Status: Active Protocol: Document 11/28/20 14:38 HH (Rec: 11/28/20 15:09 [email or web address]) Hip Strength Hip Manual Muscle Testing Right Flexion (L2) 4+ Good+ Extension (S1) 4+ Good+ Abduction 4 Good Adduction 4+ Good+ Left Flexion (L2) 4+ Good+ Extension (S1) 4+ Good+ Abduction 4 Good Adduction 4+ Good+ Knee Strength Knee Manual Muscle Testing Left Flexion (S2) 4 Good Extension (L3) 4+ Good+ Comments painful arc for extension, starts at last 20 degrees of extension Right Flexion (S2) 4 Good Extension (L3) 4+ Good+ Comments painful arc for extension, starts at last 20 degrees of extension PT-OP-Q Treatments Start: 11/28/20 14:37 Freq: Status: Active Protocol: Document 12/23/20 09:05 (Rec: 12/23/20 09:43 [id number]) Cardio Equipment Bicycle (Upright) Duration (Minutes) 6 Resistance 5 Gym Equipment Shuttle Recovery SL squat Resistance #50 Shuttle Recovery Platform Stable Reps/Time 10 x2 Therapeutic Exercises Sitting Exercises trunk flexion Sitting Exercise Name flexion and SB Reps/Minutes 10 x 2 Standing Exercises toe tap Standing Exercise Name 3 way toe tap, standing on one leg Side bilateral Reps/Minutes 5 mins monster walk Equipment Used red band Reps/Minutes 15ft x 6 squat Equipment Used red band at knees Reps/Minutes 8 x 2 Comments for HEP step up Standing Exercise Name slow step up Equipment Used 6 inches Reps/Minutes 10 x3 Comments with PPT SLS Standing Exercise Name with PPT and knee slightly bent Reps/Minutes 20 sec x 4 pelvic tilt Reps/Minutes 10 x2 Comments no cues needed today. PT-OP-T Assessment and Plan Start: 11/28/20 14:37 Freq: Status: Active Protocol: Document 12/23/20 09:05 (Rec: 12/23/20 09:43 [id number]) Physical Therapy Assessment Goals strength Short Term Goal (STG) pt will be able to complete squat 8 times without increase in knee discomfort STG Duration 4 weeks Senior Care Goal (LTG) pt will be able to complete squat 12 times without increase in knee discomfort so she can squat during work constantly without irritation LTG Duration 8 weeks HEP Impairment pt does not have HEP Senior Care Goal (LTG) pt will be able to complete HEP safely and independently at least 4 times/ week LTG Duration 4 weeks pain Impairment pt has pain 4/10 constantly Short Term Goal (STG) pt will have pain no more than 4/10 after her work days and able to sleep at nigth without waking up >4 times /week STG Duration 4 weeks Senior Care Goal (LTG) pt will not need to take pain medication for her knee pain and able to sleep without being interrupted by her knee pain. LTG Duration 8 weeks LEFS Impairment pt scores 53 on LEFS Short Term Goal (STG) pt will score >60 on LEFS to improve her oveall quality of life STG Duration 4 weeks Supervisor Pastry Goal (LTG) pt will score >65 on LEFS to improve her oveall quality of life LTG Duration 8 weeks Assessment Summary Assessment Pt shows good improvements with SL strength and stability . Will continue to progress her therex as ericka. No pain noted. Physical Therapy Plan Frequency and Duration Frequency of Treatment 2x/Week Duration of Treatment 8 weeks Plan of Care Start Date 11/28/20 Plan of Care End Date 01/27/21 Therapeutic Interventions Therapeutic Interventions Aquatic Therapy,Balance Training,Gait Training,Home Exercise Program,Joint Mobilizations,Manual Therapy, Neuromuscular Re-education, Patient/Caregiver Education, Self-Care/Home Management,Soft Tissue Mobilization,Taping, Therapeutic Activities, Therapeutic Exercises Modalities Biofeedback,Cold Pack/Ice Massage,Electric Stimulation, Hot Packs,Infrared Therapy, Iontophoresis Discharge Physical Therapy Discharge Reasons No Longer Attending PT Next Visit Focus/Plan Next Note Type Treatment Note Next Visit Plan quad stretch rolling pin isometric quad knee extension HS curl
--- NOTE | 2020-12-26 09:37 | PT.OTN ---
Current Diagnoses Pain in left knee (12/26/20) Physical Therapy Treatment Note PT-OP-A Visit Information Start: 11/28/20 14:37 Freq: Status: Active Protocol: Document 12/26/20 09:05 (Rec: 12/26/20 09:36 [id number]) Out-Patient Physical Therapy Visit Information Visit Information Visit Type Treatment Note Visit Start Time 09:05 Visit Stop Time 09:43 Total Visit Minutes 38 Visit Number 03/25 Number of GAMING CASHIER Visits 0 PT-OP-B Current Condition Start: 11/28/20 14:37 Freq: Status: Active Protocol: Document 11/28/20 14:38 HH (Rec: 11/28/20 15:09 [email or web address]) Current Condition History of Current Condition Onset Date >10 years ago Current Complaints Bilateral knee pain, difficulty in walking and working History of Current Condition Annelise is a 55 yo female here today because of painful knees bilaterally. Pt stated her R knee started hurting more than 10 years ago and her L one started last year. Pain mostly located anteriorly at sides of both knee caps which is worse with prolonged WB activities such as walking, standing and working. Denies stiffness / clicking/ hotness/ swelling. She normally takes 4 ibuprofen 800mg twice for her pain, especially night time since her knee pain wakes her up at night. 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 She currently works 2-3 days per week. Pt went to see Orthpedist Dr. Winter who suspect meniscus tear but no signs of OA d/t negative findings on Xray. Prior Treatments and Tests pt has histroy of bakers cyst on R side and she was drained multiple times without much improvements. pt stated there's no signs of OA d/t negative findings on Xray as stated. Treatment Goals Patient/Caregiver Goals 1. To reduce overall knee pain so she can stand / walk/ working 2. To strengthen both legs PT-OP-C Subjective Start: 11/28/20 14:37 Freq: Status: Active Protocol: Document 12/26/20 09:05 (Rec: 12/26/20 09:36 [id number]) OP-PT Subjective Patient Comments Patient Comments My knees are doing good so far. I think im at 70 % recovered so far. Patient Reported Progress Improving PT-OP-D Balance Start: 11/28/20 14:37 Freq: Status: Active Protocol: Document 11/28/20 14:38 HH (Rec: 11/28/20 15:09 [email or web address]) Balance Tests Single Limb Standing Single Limb- Right >20 Single Limb- Left >20 PT-OP-F Manual Assessment Start: 11/28/20 14:37 Freq: Status: Active Protocol: Document 11/28/20 14:38 HH (Rec: 11/28/20 15:09 HH [email or web address]) Manual Assessments Soft Tissue Assessment Soft Tissue Mobility Assessment significant hypertonicity at bilateral quads and hip adductors. tenderness to pressure at patella tendon Joint Mobility Assessment Joint Mobility Assessment patellofemoral joint = WFL no laxity noted for valgus/ varus force at b knees. PT-OP-K Range of Motion Start: 11/28/20 14:37 Freq: Status: Active Protocol: Document 11/28/20 14:38 HH (Rec: 11/28/20 15:09 [email or web address]) Knee Goniometric Range of Motion Knee Right Knee ROM WFL Yes Patient Position Supine Flexion Active (degrees) 140 Extension Active (degrees) 0 Left Knee ROM WFL Yes Patient Position Supine Flexion Active (degrees) 140 Extension Active (degrees) 0 Knee ROM Limitations Knee ROM Limitations Pain PT-OP-L Special Tests Start: 11/28/20 14:37 Freq: Status: Active Protocol: Document 11/28/20 14:38 HH (Rec: 11/28/20 15:09 [email or web address]) Special Tests Hip Special Tests Jenaro Test Results +ve B Comments L knee is 20 degree off table, heel is 30 degrees off vertical line r knee is // to table, heel is 20 degrees off vertical line Knee Special Tests Apley's Compression Test Results -ve B Dav Test Test Results -ve B Kj's Sign Test Results +VE L>R Varus- 0 Degrees Test Results -ve B no laxity noted Varus- 25 Degrees Test Results -ve B no laxity noted Valgus- 25 Degrees Test Results -ve B no laxity noted Valgus- 0 Degrees Test Results -ve B no laxity noted PT-OP-M Strength Start: 11/28/20 14:37 Freq: Status: Active Protocol: Document 11/28/20 14:38 HH (Rec: 11/28/20 15:09 [email or web address]) Hip Strength Hip Manual Muscle Testing Right Flexion (L2) 4+ Good+ Extension (S1) 4+ Good+ Abduction 4 Good Adduction 4+ Good+ Left Flexion (L2) 4+ Good+ Extension (S1) 4+ Good+ Abduction 4 Good Adduction 4+ Good+ Knee Strength Knee Manual Muscle Testing Left Flexion (S2) 4 Good Extension (L3) 4+ Good+ Comments painful arc for extension, starts at last 20 degrees of extension Right Flexion (S2) 4 Good Extension (L3) 4+ Good+ Comments painful arc for extension, starts at last 20 degrees of extension PT-OP-Q Treatments Start: 11/28/20 14:37 Freq: Status: Active Protocol: Document 12/26/20 09:05 (Rec: 12/26/20 09:36 [id number]) Cardio Equipment Recumbent Bicycle Duration (Minutes) 5 Gym Equipment Shuttle Recovery SL squat Resistance #50 Shuttle Recovery Platform Stable Reps/Time 15x2 Therapeutic Exercises Standing Exercises ankle board Standing Exercise Name sagittal and frontal plane Reps/Minutes 4 mins monster walk Equipment Used red band Reps/Minutes 15ft x 6 squat Equipment Used red band at knees Reps/Minutes 8 x 2 Comments for HEP step up Standing Exercise Name slow step up Equipment Used 6 inches Reps/Minutes 10 x3 Comments with PPT SLS Standing Exercise Name with PPT and knee slightly bent Reps/Minutes 10 sec each, 5 mins Comments floor then blue foam pelvic tilt Reps/Minutes 10 x2 Comments no cues needed today. PT-OP-T Assessment and Plan Start: 11/28/20 14:37 Freq: Status: Active Protocol: Document 12/26/20 09:05 (Rec: 12/26/20 09:36 [id number]) Physical Therapy Assessment Goals strength Short Term Goal (STG) pt will be able to complete squat 8 times without increase in knee discomfort STG Duration 4 weeks Pull Out Operator Goal (LTG) pt will be able to complete squat 12 times without increase in knee discomfort so she can squat during work constantly without irritation LTG Duration 8 weeks HEP Impairment pt does not have HEP Pull Out Operator Goal (LTG) pt will be able to complete HEP safely and independently at least 4 times/ week LTG Duration 4 weeks pain Impairment pt has pain 4/10 constantly Short Term Goal (STG) pt will have pain no more than 4/10 after her work days and able to sleep at nigth without waking up >4 times /week STG Duration 4 weeks Pull Out Operator Goal (LTG) pt will not need to take pain medication for her knee pain and able to sleep without being interrupted by her knee pain. LTG Duration 8 weeks LEFS Impairment pt scores 53 on LEFS Short Term Goal (STG) pt will score >60 on LEFS to improve her oveall quality of life STG Duration 4 weeks Mcc Goal (LTG) pt will score >65 on LEFS to improve her oveall quality of life LTG Duration 8 weeks Assessment Summary Assessment Pt reports she is 70% recovered and able to manage her knee pain effectively. However, pt would like to continue PT once a week for one month to focus on balance and LE strnegthening. Physical Therapy Plan Frequency and Duration Frequency of Treatment 1x/Week Duration of Treatment 8 weeks Plan of Care Start Date 11/28/20 Plan of Care End Date 01/27/21 Therapeutic Interventions Therapeutic Interventions Aquatic Therapy,Balance Training,Gait Training,Home Exercise Program,Joint Mobilizations,Manual Therapy, Neuromuscular Re-education, Patient/Caregiver Education, Self-Care/Home Management,Soft Tissue Mobilization,Taping, Therapeutic Activities, Therapeutic Exercises Modalities Biofeedback,Cold Pack/Ice Massage,Electric Stimulation, Hot Packs,Infrared Therapy, Iontophoresis Next Visit Focus/Plan Next Note Type Treatment Note Next Visit Plan quad stretch rolling pin isometric quad knee extension HS curl
--- NOTE | 2021-02-11 08:37 | PT.OPDS ---
Current Diagnoses Pain in left knee (12/26/20) Visit Care Team Role Provider Type Cindy Lake DO Attending Provider Physician Family Provider Primary Care Provider Referring Provider Specialty: Family Practice Address: [address] [place] [address], [facility] [address], [place], [address] Email: [email or web address] Visit Number Visit Number 03/25 Discharge Summary PT-OP-T Assessment and Plan Start: 11/28/20 14:37 Freq: Status: Active Protocol: Document 02/11/21 08:37 (Rec: 02/11/21 08:37 [email or web address]) Physical Therapy Plan Discharge Physical Therapy Discharge Reasons No Longer Attending PT Discharge Comments per EMR, pt has been doing better and she is no longer attending PT. DC from PT today
== END 2021-02-11 12:38 | disposition home or self-care (01) ==
LOC: PHYS 09:00
PROVIDERS: Family Provider Family Medicine; PCP Family Medicine; Referring Provider Family Medicine; Visit Provider Family Medicine
DX: M25.562 Pain in left knee (principal)
CPT/HCPCS: 97110; 97140; 97161

== ENCOUNTER → 2021-01-31 13:21 | Outpatient (CLI) | payer OTHER, MEDICAID, SELFPAY ==
--- NOTE | 2021-01-31 13:22 | DI.US.S_ITS ---
ULTRASOUND OF LEFT BREAST: 01/31/2021 CLINICAL: Left breast pain and both bloody and purulent nipple discharge. Palpable lump no longer felt today. Exam showed no visible skin or nipple abnormalities. Patient reports persistent episodes of varying amounts of blood or purulent nipple discharge. Comparison is made to exams dated: 01/31/2021 mammogram, 12/09/2016 mammogram, 11/29/2013 mammogram, and 10/27/2011 mammogram - [facility]. Color flow and real-time ultrasound of the left breast were performed. Graham scale images of the real-time examination were reviewed. No significant abnormalities were seen sonographically in the left breast. IMPRESSION: INCOMPLETE: NEEDS ADDITIONAL IMAGING EVALUATION There is no abnormality seen in the left breast to correspond with the area of clinical concern, palpable abnormality, and nipple abnormality described as persistent episodes of both bloody and purulent nipple discharge. No definite findings for infection, however, clinical followup is recommended for possible course of antibiotics. If this does not clear up her symptoms, then recommend further evaluation with contrast enhanced breast MRI. Findings and recommendations were conveyed to the patient during today's evaluation. This exam was interpreted at Station ID: [id number]. Electronically Signed By: Colby Yanez M.D. aty/:01/31/2021 15:11:28 letter sent: Clinical Evaluation Ultrasound BI-RADS: 0 Indeterminate
--- NOTE | 2021-01-31 13:22 | DI.MG.S_ITS ---
BILATERAL DIGITAL DIAGNOSTIC MAMMOGRAM 3D/2D: 01/31/2021 CLINICAL: Left breast pain and both bloody and purulent nipple discharge. Palpable lump no longer felt today. Exam showed no visible skin or nipple abnormalities. Patient reports persistent episodes of varying amounts of blood or purulent nipple discharge. Comparison is made to exams dated: 12/09/2016 mammogram, 11/29/2013 mammogram, and 10/27/2011 mammogram - [facility]. There are scattered fibroglandular elements in both breasts. No significant masses, calcifications, or other findings are seen in either breast. IMPRESSION: INCOMPLETE: NEEDS ADDITIONAL IMAGING EVALUATION There is no abnormality seen in the left breast to correspond with the area of clinical concern, palpable abnormality, and nipple abnormality indicated by triangular marker in the anterior depth in the upper outer quadrant. An ultrasound is recommended for further evaluation and is scheduled to immediately follow this examination. This exam was interpreted at Station ID: [id number]. NOTE: For mammograms, a report in lay terms will be sent to the patient. Approximately 15% of breast malignancies will not be visualized mammographically. In the management of a palpable breast mass, a negative mammogram must not discourage biopsy of a clinically suspicious lesion. Electronically Signed By: Colby Yanez M.D. aty/:01/31/2021 15:07:53 ACR BI-RADS Category 0: Incomplete [id number]
== END ==
PROVIDERS: Family Provider Family Medicine; PCP Family Medicine; Referring Provider Family Medicine; Visit Provider Family Medicine
DX: R92.2 Inconclusive mammogram (principal); N64.4 Mastodynia; N64.52 Nipple discharge
CPT/HCPCS: 76642; 77066; G0279

== ENCOUNTER → 2021-05-13 | Outpatient (CLI) | payer OTHER, MEDICAID, SELFPAY | PROVIDERS: Family Provider Family Medicine; PCP Family Medicine; Referring Provider Internal Medicine; Visit Provider Internal Medicine | DX: Z23 Encounter for immunization (principal) | CPT/HCPCS: 90471; 90686 ==

== ENCOUNTER → 2021-06-06 08:43 | Outpatient (CLI) | payer OTHER, SELFPAY ==
[2021-06-06] MEDS: COVID-19 VACC #3, MRNA(MOD) 50 MCG/0.25 ML VIAL IM (08:50)
== END ==
PROVIDERS: Family Provider Family Medicine; PCP Family Medicine; Visit Provider Internal Medicine
DX: Z23 Encounter for immunization (principal)
CPT/HCPCS: 0013A; 91301

== ENCOUNTER → 2021-06-25 15:08 | Outpatient (CLI) | payer OTHER, SELFPAY ==
[2021-06-25 15:42] LABS: COVID19 -Nasal RAPID Negative (Negative)
== END ==
PROVIDERS: Family Provider Family Medicine; PCP Family Medicine; Visit Provider Nurse Practitioner Family
DX: Z20.822 Contact with and (suspected) exposure to COVID-19 (principal)
CPT/HCPCS: 87635

== ENCOUNTER → 2021-06-27 10:21 | Outpatient (CLI) | payer OTHER, SELFPAY ==
[2021-06-27 10:48] LABS: COVID19 -Nasal RAPID Negative (Negative)
== END ==
PROVIDERS: Family Provider Family Medicine; PCP Family Medicine; Visit Provider Nurse Practitioner Family
DX: Z20.822 Contact with and (suspected) exposure to COVID-19 (principal)
CPT/HCPCS: 87635

== ENCOUNTER → 2021-07-19 08:20 | Outpatient (CLI) | payer OTHER, SELFPAY ==
[2021-07-19 08:38] LABS: Add Manual Diff / Slide Review NO; Basophils Absolute Auto 100 /uL (0-100); Basophils Percent Auto 0.8 % (0-2); Eosinophils Absolute Auto 100 /uL (0-450); Hematocrit 40.9 % (36-46); Hemoglobin 13.9 g/dL (12.0-16.0); Lymphocytes Absolute Auto 1600 /uL (1100-4500); Mean Corpuscular Hemoglobin 34.1 PG (26-34); Mean Corpuscular Volume 100.1 fL (80-100); Monocytes Absolute Auto 300 /uL (0-900); Monocytes Percent Auto 4.2 % (3-14); Neutrophils Absolute Auto 5500 /uL (1500-7000); Platelet Count 257 X10^3/uL (150-400); Red Blood Cell Count 4.09 X10^6/uL (4.0-5.2); Red Cell Distribution Width 12.9 % (11.6-14.8); White Blood Cell Count 7.5 X10^3/uL (4.5-11.0)
[2021-07-19 10:01] LABS: Alanine Aminotransferase 17 IU/L (<35); Albumin 4.1 g/dL (3.5-5.0); Albumin Globulin Ratio 1.3 (1.0-2.8); Alkaline Phosphatase 105 U/L (38-126); Aspartate Aminotransferase 23 IU/L (14-36); BUN Creatinine Ratio 17.9 (6-22); Bilirubin Total 0.7 mg/dL (0.2-1.3); Blood Urea Nitrogen 15 mg/dL (7-17); Calcium 9.5 mg/dL (8.4-10.2); Carbon Dioxide 26 mmol/L (22-32); Chloride 109 mmol/L (98-107); Cholesterol 248 mg/dL (140-199); Estimated Glomerular Filt Rate > 60.0 mL/min (>60); Globulin 3.1 g/dL (1.7-4.1); Glucose 104 mg/dL (70-100); HDL Cholesterol 51 mg/dL (40-60); HEMOLYSIS < 15 (0-50); LDL Cholesterol Calculated 178 mg/dL (<100); Potassium 3.7 mmol/L (3.4-5.1); Sodium 143 mmol/L (137-145); Total Protein 7.2 g/dL (6.3-8.2); Triglycerides 94 mg/dL (35-150)
[2021-07-19 10:30] LABS: TSH w/ Reflex to FT4 1.27 uIU/mL (0.47-4.68)
[2021-07-19 10:49] LABS: Vitamin B12 280 pg/mL (239-931)
== END ==
PROVIDERS: Family Provider Family Medicine; PCP Family Medicine; Referring Provider Family Medicine; Visit Provider Family Medicine
DX: E03.9 Hypothyroidism, unspecified (principal); D75.89 Other specified diseases of blood and blood-forming organs; E53.8 Deficiency of other specified B group vitamins; Z13.1 Encounter for screening for diabetes mellitus; E78.5 Hyperlipidemia, unspecified
CPT/HCPCS: 36415; 80053; 80061; 82607; 84443; 85025

== ENCOUNTER → 2022-02-04 07:03 | Outpatient (CLI) | payer OTHER, SELFPAY ==
[2022-02-04 08:15] LABS: Add Manual Diff / Slide Review NO; Basophils Absolute Auto 100 /uL (0-100); Basophils Percent Auto 0.5 % (0-2); Eosinophils Absolute Auto 200 /uL (0-450); Eosinophils Percent Auto 1.5 % (2-4); Hematocrit 41.9 % (36-46); Hemoglobin 14.1 g/dL (12.0-16.0); Lymphocytes Absolute Auto 2100 /uL (1100-4500); Lymphocytes Percent Auto 18.3 % (25-40); Mean Corpuscular HGB Conc 33.6 % (30-36); Mean Corpuscular Volume 101.3 fL (80-100); Monocytes Absolute Auto 500 /uL (0-900); Monocytes Percent Auto 4.6 % (3-14); Neutrophils Absolute Auto 8700 /uL (1500-7000); Neutrophils Percent Auto 75.1 % (50-75); Platelet Count 334 X10^3/uL (150-400); Red Blood Cell Count 4.13 X10^6/uL (4.0-5.2); Red Cell Distribution Width 14.3 % (11.6-14.8); White Blood Cell Count 11.6 X10^3/uL (4.5-11.0)
[2022-02-04 08:36] LABS: Alanine Aminotransferase 14 IU/L (<35); Albumin 4.3 g/dL (3.5-5.0); Albumin Globulin Ratio 1.3 (1.0-2.8); Alkaline Phosphatase 115 U/L (38-126); Aspartate Aminotransferase 24 IU/L (14-36); BUN Creatinine Ratio 19.8 (6-22); Bilirubin Total 0.6 mg/dL (0.2-1.3); Blood Urea Nitrogen 16 mg/dL (7-17); Calcium 9.2 mg/dL (8.4-10.2); Carbon Dioxide 30 mmol/L (22-32); Chloride 106 mmol/L (98-107); Cholesterol 256 mg/dL (140-199); Estimated Glomerular Filt Rate > 60 mL/min (>60); Globulin 3.3 g/dL (1.7-4.1); Glucose 97 mg/dL (70-100); HDL Cholesterol 61 mg/dL (40-60); HEMOLYSIS < 15 (0-50); LDL Cholesterol Calculated 168 mg/dL (<100); Potassium 4.9 mmol/L (3.4-5.1); Sodium 142 mmol/L (137-145); Total Protein 7.6 g/dL (6.3-8.2); Triglycerides 136 mg/dL (35-150)
== END ==
PROVIDERS: Family Provider Family Medicine; PCP Family Medicine; Referring Provider Family Medicine; Visit Provider Family Medicine
DX: D75.89 Other specified diseases of blood and blood-forming organs (principal); E78.5 Hyperlipidemia, unspecified; I10 Essential (primary) hypertension
CPT/HCPCS: 36415; 80053; 80061; 85025

== ENCOUNTER → 2022-02-09 10:20 | Outpatient (CLI) | payer OTHER, SELFPAY ==
[2022-02-09 11:38] LABS: D Dimer 297 ng/mL (<230)
[2022-02-09 11:46] LABS: C-Reactive Protein Quant 1.7 mg/dL (<1.0)
[2022-02-09 12:12] LABS: TSH w/ Reflex to FT4 0.77 uIU/mL (0.47-4.68)
[2022-02-09 12:29] LABS: Vitamin B12 > 1000 pg/mL (239-931)
[2022-02-09 13:43] LABS: Erythrocyte Sedimentation Rate 11 MM/HR (0-20)
== END ==
PROVIDERS: Family Provider Family Medicine; PCP Pediatrics; Referring Provider Pediatrics; Visit Provider Pediatrics
DX: D75.89 Other specified diseases of blood and blood-forming organs (principal); E78.5 Hyperlipidemia, unspecified; F32.9 Major depressive disorder, single episode, unspecified; I10 Essential (primary) hypertension; E78.00 Pure hypercholesterolemia, unspecified; F32.5 Major depressive disorder, single episode, in full remission; M79.89 Other specified soft tissue disorders
CPT/HCPCS: 36415; 82607; 84443; 85379; 85651; 86140

== ENCOUNTER → 2022-02-10 16:36 | Outpatient (CLI) | payer OTHER, SELFPAY ==
--- NOTE | 2022-02-10 16:39 | DI.US.S_ITS ---
PROCEDURE: US [facility] VENOUS LOW EXTREM RT INDICATIONS: assess for clot TECHNIQUE: Real-time imaging, as well as color and pulse Doppler interrogation, were performed of the lower extremity deep veins from the inguinal ligament to the popliteal fossa. COMPARISON: [facility], , [facility] VENOUS LOW EXTREM RT, 12/08/2018, 10:54. FINDINGS: The common femoral, femoral and popliteal veins are normally compressible, and free of intraluminal thrombus. Color and pulse Doppler demonstrate normal phasic intraluminal flow. There is normal augmentation response to distal compression maneuver. A complex Don's cyst is seen, which measures 8 x 7.2 x 3.7 cm, which is increased in size compared to 2019. IMPRESSION: Negative for deep venous thrombosis. A complex Don's cyst is seen, which is increased in size compared to the prior. Dictated by: Deny Correa M.D. on 02/10/2022 at 16:05 Approved by: Deny Correa M.D. on 02/10/2022 at 16:06
== END ==
PROVIDERS: Family Provider Family Medicine; PCP Pediatrics; Referring Provider Pediatrics; Visit Provider Pediatrics
DX: M71.21 Synovial cyst of popliteal space [Baker], right knee (principal); M79.89 Other specified soft tissue disorders
CPT/HCPCS: 93971

== ENCOUNTER → 2022-05-19 16:20 | Outpatient (CLI) | payer OTHER, SELFPAY | PROVIDERS: Family Provider Family Medicine; PCP Pediatrics; Referring Provider Internal Medicine; Visit Provider Internal Medicine | DX: Z23 Encounter for immunization (principal) | CPT/HCPCS: 90471; 90686 ==

== ENCOUNTER 2022-08-14 13:28 | Emergency (ER) | payer OTHER, SELFPAY ==
[2022-08-14] VITALS (16 sets, daily range): BP systolic 164–213; BP diastolic 81–126; PULSE 58–76; RESP 16–24; TEMP 36.2–36.3; O2SAT 91–96; BMI 28.1
--- NOTE | 2022-08-14 14:05 | DI.CT.S_ITS ---
PROCEDURE: CT HEAD/BRAIN WO CON INDICATIONS: HTN headache TECHNIQUE: Noncontrast 4.5 mm thick angled axial sections acquired from the foramen magnum to the vertex, with coronal and sagittal reformats. For radiation dose reduction, the following was used: automated exposure control, adjustment of mA and/or kV according to patient size. COMPARISON: None. FINDINGS: Image quality: Excellent. CSF spaces: Basal cisterns are patent. No extra-axial fluid collections. Ventricles are normal in size and shape. Brain: No midline shift. No intracranial masses or hemorrhage. Graham-white matter interface is normal. Skull and face: Calvarium and visualized facial bones are intact, without suspicious lesions. Sinuses: Visualized sinuses and mastoids are clear. IMPRESSION: Normal for age, source of current severe headache symptoms is not seen. Dictated by: Shiva Medina M.D. on 08/14/2022 at 14:59 Approved by: Shiva Medina M.D. on 08/14/2022 at 14:59
--- NOTE | 2022-08-14 14:05 | DI.RAD.S_ITS ---
PROCEDURE: XR CHEST 1V INDICATIONS: chest pain TECHNIQUE: One view of the chest was acquired. COMPARISON: [facility], , CHEST 2 VIEW, 03/12/2017, 21:09. FINDINGS: Surgical changes and devices: None. Lungs and pleura: Lungs are clear. No pleural effusions or pneumothorax. Mediastinum: Mediastinal contours appear normal. Heart size is normal. Bones and chest wall: No suspicious bony lesions. Overlying soft tissues appear unremarkable. IMPRESSION: No acute pulmonary process. Dictated by: Linda Livingston M.D. on 08/14/2022 at 14:55 Approved by: Linda Livingston M.D. on 08/14/2022 at 14:55
[2022-08-14 15:29] LABS: Add Manual Diff / Slide Review NO; Basophils Absolute Auto 100 /uL (0-100); Basophils Percent Auto 1.1 % (0-2); Eosinophils Absolute Auto 100 /uL (0-450); Eosinophils Percent Auto 1.3 % (2-4); Hematocrit 42.6 % (36-46); Hemoglobin 14.5 g/dL (12.0-16.0); Lymphocytes Absolute Auto 2500 /uL (1100-4500); Lymphocytes Percent Auto 27.1 % (25-40); Mean Corpuscular Hemoglobin 34.1 PG (26-34); Mean Corpuscular Volume 100.1 fL (80-100); Monocytes Absolute Auto 400 /uL (0-900); Monocytes Percent Auto 4.6 % (3-14); Neutrophils Absolute Auto 6000 /uL (1500-7000); Neutrophils Percent Auto 65.9 % (50-75); Platelet Count 267 X10^3/uL (150-400); Red Blood Cell Count 4.26 X10^6/uL (4.0-5.2); Red Cell Distribution Width 13.5 % (11.6-14.8); White Blood Cell Count 9.1 X10^3/uL (4.5-11.0)
[2022-08-14 15:43] LABS: HEMOLYSIS < 15 (0-50)
[2022-08-14 15:50] LABS: Alanine Aminotransferase 18 IU/L (<35); Albumin 4.1 g/dL (3.5-5.0); Albumin Globulin Ratio 1.2 (1.0-2.8); Alkaline Phosphatase 105 U/L (38-126); Aspartate Aminotransferase 22 IU/L (14-36); BUN Creatinine Ratio 18.3 (6-22); Bilirubin Total 0.6 mg/dL (0.2-1.3); Blood Urea Nitrogen 13 mg/dL (7-17); Calcium 9.2 mg/dL (8.4-10.2); Carbon Dioxide 26 mmol/L (22-32); Chloride 107 mmol/L (98-107); Creatine Kinase 59 U/L (30-135); Estimated Glomerular Filt Rate > 60 mL/min (>60); Globulin 3.5 g/dL (1.7-4.1); Glucose 90 mg/dL (70-100); Lipase 62 U/L (23-300); Potassium 3.5 mmol/L (3.4-5.1); Sodium 142 mmol/L (137-145); Total Protein 7.6 g/dL (6.3-8.2)
[2022-08-14 15:59] LABS: Troponin I < 0.012 ng/mL (0.01-0.034)
[2022-08-14] MEDS: SODIUM CHLORIDE 0.9% 1,000 ML 150 ML IV (16:25)
--- NOTE | 2022-08-14 18:13 | ED_ITS ---
HPI - General Adult General Chief complaint: Hypertension Stated complaint: BP super high; ears ringing, headache Time Seen by Provider: 08/14/22 14:05 Source: patient and old records reviewed Limitations: no limitations History of Present Illness HPI narrative: This is a 57-year-old female with history of hypothyroidism, GERD, asthma, tobacco use and alcohol use who presents for elevated blood pressure for the last 5 days. Patient states that she was told to check by her physician Dr. Cristino rogers before they left the area but she had been checking. Her significant other checks his regularly and so they started checking 5 days ago and it has been elevated. Patient is not any daily medications. She states today she developed had some ringing in her ears felt lightheaded. She had 1 dizzy episode where she was changing of and felt sort of off balance it quickly resolved. She states headaches have been mild 4/10. She denies syncope, no vision changes. No known numbness, tingling or weakness. No issues with gait or movement. She has not had similar symptoms in the past. She denies chest pain, no shortness of breath, no nausea vomiting, diarrhea constipation. No urinary symptoms. Patient does state she is had ear infections in the past has sometimes felt similar to this. On exam was noted her left TM does not appear intact she does not recall any recent infection or sudden pain with drainage that resolved. Patient states she is never been told that she had perforated her TM. She is on medication for thyroid, omeprazole inhaler. States she is had a tubal ligation and had removal of a Don's cyst behind her right knee. Her only allergy is venlafaxine. She smokes a pack per day tobacco, she drinks more alcoholic drinks daily she states she does not usually get shaky or feel bad if she does not have any alcohol. No illicit. She is establishing with Mallory leavitt as her primary care she has a nurse's appointment on this upcoming Wednesday. Related Data Previous Rx's Medication Instructions Recorded fluticasone propionate 50 9.9 ml NS Q DAY ##1 09/07/17 mcg/actuation nasal spray,suspension (Flonase Allergy Relief) erythromycin 5 mg/gram (0.5 %) eye 1 applic ophthalmic (eye) TID #1 g 03/06/21 ointment fluticasone 100 mcg-salmeterol 50 1 inh inhalation BID #60 ea 07/14/21 mcg/dose blistr powdr for inhalation alprazolam 0.5 mg tablet 0.5 mg PO HS PRN anxiety #15 tabs 08/27/21 bupropion HCl 150 mg tablet,12 hr 150 mg PO BID #180 tabs 08/27/21 sustained-release levothyroxine 75 mcg tablet 75 mcg PO QDAY@0600 #90 tabs 08/27/21 (Synthroid) albuterol sulfate 90 mcg/actuation 2 puff inhalation Q4HP PRN 02/23/22 aerosol inhaler (Ventolin HFA) shortness of breath or wheezing #2 ea omeprazole 40 mg capsule,delayed 40 mg PO DAILY #90 caps 04/03/22 release hydrochlorothiazide 12.5 mg tablet 12.5 mg PO DAILY #20 tabs 08/14/22 Allergies Allergy/AdvReac Type Severity Reaction Status Date / Time varenicline Allergy Severe HIVES/DIFFICULTY Verified 08/14/22 14:02 BREATHING Review of Systems Review of Systems ROS Unobtainable: All systems reviewed & are unremarkable except as noted in HPI and below Patient History Medical History Acute myofascial strain of lumbosacral region 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 (10/23/11) Anxiety (10/06/11) Bronchitis Chicken pox Conjunctivitis COPD (chronic obstructive pulmonary disease) Depression Exercise-induced asthma (10/06/11) Gastroesophageal reflux disease with esophagitis (08/05/12) Heavy menstrual period Hepatic steatosis History of recurrent ear infection Hypothyroidism (10/06/11) Insomnia Moderate alcohol use disorder, in early remission (10/07/16) Mumps Neuropathy of right ulnar nerve at wrist (12/04/16) Osteoarthritis of both knees (02/21/16) Osteopenia after menopause Seasonal allergies Swelling of right lower extremity Thyroid nodule (~06/2012) Tobacco use disorder (10/06/11) Trochanteric bursitis, right hip Surgical History Anesthesia History of esophagogastroduodenoscopy (EGD) (08/03/12) History of sinus surgery (~1992) History of tonsillectomy (~1968) History of use of contraceptive intrauterine device (IUD) (~12/23/11) Status post colonoscopy (08/03/12) Status post tubal ligation (~1996) Family History Brother Diabetes mellitus Brother Patient's brother is in good health Brother Poor physical health Father Poor physical health Alcoholism Hypertension Mother Patient's mother is in good health Alcoholism Hypertension Social History household members: significant other Smoking Status: Current every day smoker quit status: considering quitting Smoking Status: Current every day smoker alcohol intake frequency: 3 or more drinks per day Substance Use Type: does not use Exam Narrative Exam Narrative: GEN: well nourished, well appearing female, alert and oriented x 3, patient appears to be in mild distress. HEENT: Atraumatic, pupils are equal round reactive to light, extraocular movements are intact, nares are clear, TM right has bulge, opaque fluid but no erythema, TM on the left I can not easily visualize appears to not be present., there is no conjunctival pallor. Throat is clear without any exudates, erythema, tonsillar enlargement or uvular deviation HEART: Regular rate and rhythm without murmur, clicks, rubs. No carotid bruits, pulses are equal in upper and lower extremities LUNGS:Lungs clear to auscultation, no wheezes, rales, crackles, chest moves symmetrically ABD:bowel sounds normal, soft, non-tender, no guarding, rebound, rigidity, no masses noted, no hepatosplenomegaly :No CVA tenderness MSCL: Non-tender, no muscle atrophy, muscles strength 5/5 upper and lower ext remities, full range of motion, normal gait NEURO:CN 2-12 intact, sensation normal, finger nose finger test normal, heel raymundo test normal, romberg normal Initial Vital Signs Initial Vital Signs: Vital Signs Temperature 97.1 F L 08/14/22 14:00 Pulse Rate 74 08/14/22 14:00 Respiratory Rate 16 08/14/22 14:00 Blood Pressure 213/113 H 08/14/22 14:00 Pulse Oximetry 96 08/14/22 14:00 Oxygen Delivery Method 08/14/22 14:00 Course Orders Ordered: Discontinued Medications Sodium Chloride (Normal Saline 0.9%) 1,000 mls @ 150 mls/hr IV CONT PRASANTH Last Infusion: 08/14/22 19:03 Dose: 0 mls/hr Documented By: Admin: 08/14/22 16:25 Dose: 150 mls/hr Documented By: JOHNNA Vital Signs Vital signs: Vital Signs - 8 hr 08/14/22 14:00 08/14/22 14:23 08/14/22 14:23 Temperature 97.1 F L Pulse Rate 74 69 Respiratory Rate 16 22 Blood Pressure 213/113 H 186/97 H Pulse Oximetry 96 96 Oxygen Delivery Method Room Air 08/14/22 14:30 08/14/22 14:30 08/14/22 15:00 Temperature Pulse Rate 66 67 Respiratory Rate 24 Blood Pressure 164/81 H Pulse Oximetry 95 94 Oxygen Delivery Method 08/14/22 15:05 08/14/22 15:05 08/14/22 15:30 Temperature Pulse Rate 69 Respiratory Rate 20 Blood Pressure 183/113 H 188/86 H Pulse Oximetry 95 Oxygen Delivery Method 08/14/22 15:30 08/14/22 16:00 08/14/22 16:01 Temperature Pulse Rate 66 67 70 Respiratory Rate 23 20 22 Blood Pressure Pulse Oximetry 92 91 92 Oxygen Delivery Method Room Air 08/14/22 16:01 08/14/22 16:30 08/14/22 16:30 Temperature Pulse Rate 65 Respiratory Rate 23 Blood Pressure 191/82 H 178/90 H Pulse Oximetry 93 Oxygen Delivery Method 08/14/22 17:00 08/14/22 17:00 Temperature Pulse Rate 73 Respiratory Rate 23 Blood Pressure 186/126 H Pulse Oximetry 93 Oxygen Delivery Method Medical Decision Making Lab Data Result diagrams: 08/14/22 15:05 08/14/22 15:05 Labs: Lab Results 08/14/22 08/14/22 08/14/22 Range/Units 15:05 15:05 18:50 WBC 9.1 (4.5-11.0) X10^3/uL RBC 4.26 (4.0-5.2) X10^6/uL Hgb 14.5 (12.0-16.0) g/dL Hct 42.6 (36-46) % MCV 100.1 H (80-100) fL MCH 34.1 H (26-34) PG MCHC 34.0 (30-36) % RDW 13.5 (11.6-14.8) % Plt Count 267 (150-400) X10^3/uL Neut % (Auto) 65.9 (50-75) % Lymph % (Auto) 27.1 (25-40) % Kaufman % (Auto) 4.6 (3-14) % Eos % (Auto) 1.3 L (2-4) % Baso % (Auto) 1.1 (0-2) % Neut # (Auto) 6000 (1735-7093) /uL Lymph # (Auto) 2500 (7326-6026) /uL Kaufman # (Auto) 400 (0-900) /uL Eos # (Auto) 100 (0-450) /uL Baso # (Auto) 100 (0-100) /uL Sodium 142 (137-145) mmol/L Potassium 3.5 (3.4-5.1) mmol/L Chloride 107 (98-107) mmol/L Carbon Dioxide 26 (22-32) mmol/L BUN 13 (7-17) mg/dL Creatinine 0.71 (0.52-1.04) mg/dL Estimated GFR > 60 (>60) mL/min BUN/Creatinine Ratio 18.3 (6-22) Glucose 90 (70-100) mg/dL Calcium 9.2 (8.4-10.2) mg/dL Total Bilirubin 0.6 (0.2-1.3) mg/dL AST 22 (14-36) IU/L ALT 18 (<35) IU/L Alkaline Phosphatase 105 (38-126) U/L Total Creatine Kinase 59 (30-135) U/L CK-MB (CK-2) TNP CK-MB (CK-2) Rel Index TNP Troponin I < 0.012 (0.01-0.034) ng/mL Total Protein 7.6 (6.3-8.2) g/dL Albumin 4.1 (3.5-5.0) g/dL Globulin 3.5 (1.7-4.1) g/dL Albumin/Globulin Ratio 1.2 (1.0-2.8) Lipase 62 (23-300) U/L SARS-CoV-2 (PCR) Negative (Negative) Influenza A (RT-PCR) Flu a negative (NEGATIVE) Influenza B (RT-PCR) Flu b negative (NEGATIVE) RSV (PCR) Negative (Negative) Imaging Data CT scan - head: Radiologist's Impression: Normal for age, Chest x-ray: Radiologist's Impression: No acute pulmonary process. ECG Data Attestation: I personally reviewed and interpreted this ECG as follows: Prior ECG tracings: not available for review Interpretation: Sinus rhythm rate of 65 ND 166 QRS 80 QTC of 478. No acute ST elevation appreciated. MDM Narrative Medical decision making narrative: This is a 57-year-old female with history of hypothyroid GERD asthma, tobacco and alcohol use with headache episode of dizziness that shortly resolved and ringing in her ears. Patient had head CT, chest x-ray and lab work obtained CBC, CMP, LFTs troponin and lipase are negative. EKG does not have any priors nonspecific change. Head CT was negative and chest x-ray is negative on exam patient is noted to have left TM appears perforated maybe contributing to her symptoms. She may have had some longstanding hypertension she has not been checking her physician before they left the area had recommended as her blood pressures had been creeping up over time. Patient's NIH is 0 on examination. My suspicion for stroke, TIA or vascular abnormality is lower suspect some of her symptoms are secondary to her perforated TM. Plan for discharge home, prescription for BP medications patient's blood pressure is elevated through the weekend she has a follow-up on Wednesday. And we discussed return precautions. Discharge Plan Departure Patient Disposition: Home Clinical Impression: Dizziness Perforated tympanic membrane Qualifiers: Laterality: left Qualified Code(s): H72.92 - Unspecified perforation of tympanic membrane, left ear Instructions: DI for High Blood Pressure Activity Restrictions/Additional Instructions: Follow-up at your appointment on Wednesday. It does appear that your tympanic membrane is not intact on the left, I would recommend follow-up with ENT. You can either follow up 1st with primary care or referral for ENT is included for recheck. There does not appear to be any infection currently. Make sure not to submerge your head under water or get water in your ear but you can continue normal activities. A covid/RSV/Influenza swab is pending. You may take blood pressure medication if her blood pressure is staying elevated greater than 180 systolic (top number) or greater than 100 diastolic (bottom number) over the weekend. Prescription was sent to [facility] in [place]. Please return for worsening symptoms, rapidly worsening headaches, passing out, new or worsening dizziness, vision changes, numbness tingling or weakness, new chest pain or shortness of breath, vomiting, new swelling in her extremities or other new or concerning changes. Prescriptions: New hydrochlorothiazide 12.5 mg tablet 12.5 mg PO DAILY Qty: 20 0RF No Action erythromycin 5 mg/gram (0.5 %) ointment 1 applic ophthalmic (eye) TID Qty: 1 0RF fluticasone propionate [Flonase Allergy Relief] 9.9 ML spray,suspension 9.9 ml NS Q DAY Qty: 1 1RF fluticasone propion-salmeterol 100-50 mcg/dose blister with device 1 inh INHALATION BID Qty: 60 5RF albuterol sulfate [Ventolin HFA] 90 mcg/actuation HFA aerosol inhaler 2 puff INHALATION Q4HP PRN (Reason: shortness of breath or wheezing) Qty: 2 3RF omeprazole 40 mg capsule,delayed release(DR/EC) 40 mg PO DAILY Qty: 90 3RF alprazolam 0.5 mg tablet 0.5 mg PO HS PRN (Reason: anxiety) Qty: 15 0RF bupropion HCl 150 mg tablet sustained-release 12 hr 150 mg PO BID Qty: 180 3RF levothyroxine [Synthroid] 75 mcg tablet 75 mcg PO QDAY@0600 Qty: 90 3RF Referrals: Kermit Clayton MD [Physician] - Heather Leavitt DO [Primary Care Provider] - Stand Alone Forms: Patient Portal/API, Work Release Note
[2022-08-14 19:32] LABS: Influenza A - CEPHEID Flu A NEGATIVE (NEGATIVE); Influenza B - CEPHEID Flu B NEGATIVE (NEGATIVE); Respiratory Syncytial Virus Negative (Negative)
[2022-08-14 19:34] LABS: COVID-19 CEPHEID 4-PLEX PCR Negative (Negative)
== END 2022-08-14 19:25 | disposition home or self-care (01) ==
PROVIDERS: Emergency Medicine; Emergency Provider Emergency Medicine; Family Provider Family Medicine; PCP Family Medicine
DX: R42 Dizziness and giddiness (principal); H72.92 Unspecified perforation of tympanic membrane, left ear
CPT/HCPCS: 0241U; 36415; 70450; 71045; 80053; 82550; 83690; 84484; 85025; 93005; 93010; 99284

== ENCOUNTER → 2022-09-21 06:28 | Outpatient (CLI) | payer OTHER, SELFPAY ==
[2022-09-21 09:01] LABS: Alanine Aminotransferase 19 IU/L (<35); Albumin 4.2 g/dL (3.5-5.0); Albumin Globulin Ratio 1.2 (1.0-2.8); Alkaline Phosphatase 112 U/L (38-126); Aspartate Aminotransferase 22 IU/L (14-36); Bilirubin Total 0.5 mg/dL (0.2-1.3); Blood Urea Nitrogen 15 mg/dL (7-17); Calcium 9.7 mg/dL (8.4-10.2); Carbon Dioxide 29 mmol/L (22-32); Chloride 96 mmol/L (98-107); Estimated Glomerular Filt Rate > 60 mL/min (>60); Globulin 3.5 g/dL (1.7-4.1); Glucose 112 mg/dL (70-100); HEMOLYSIS < 15 (0-50); Potassium 4.7 mmol/L (3.4-5.1); Sodium 135 mmol/L (137-145); Total Protein 7.7 g/dL (6.3-8.2)
[2022-09-21 09:04] LABS: Creatinine Urine Random 64.6 mg/dL
[2022-09-23 15:57] LABS: Microalbumin Urine Random < 0.6 mg/dL (0-1.6)
== END ==
PROVIDERS: Family Provider Family Medicine; PCP Family Medicine; Referring Provider Family Medicine; Visit Provider Family Medicine
DX: E78.5 Hyperlipidemia, unspecified (principal); H72.90 Unspecified perforation of tympanic membrane, unspecified ear; I10 Essential (primary) hypertension
CPT/HCPCS: 36415; 80053; 82043; 82570

== ENCOUNTER → 2022-11-12 08:59 | Outpatient (CLI) | payer OTHER, SELFPAY ==
[2022-11-12 09:58] LABS: Influenza A - CEPHEID Flu A NEGATIVE (NEGATIVE); Influenza B - CEPHEID Flu B NEGATIVE (NEGATIVE); Respiratory Syncytial Virus Negative (Negative)
[2022-11-12 10:00] LABS: COVID-19 CEPHEID 4-PLEX PCR Negative (Negative)
== END ==
PROVIDERS: Family Provider Family Medicine; PCP Family Medicine; Visit Provider Nurse Practitioner Family
DX: J02.9 Acute pharyngitis, unspecified (principal)
CPT/HCPCS: 0241U; 87070

== ENCOUNTER → 2023-01-08 06:35 | Outpatient (CLI) | payer OTHER, SELFPAY ==
[2023-01-08 07:59] LABS: BUN Creatinine Ratio 14.8 (6-22); Blood Urea Nitrogen 12 mg/dL (7-17); Calcium 9.4 mg/dL (8.4-10.2); Carbon Dioxide 33 mmol/L (22-32); Chloride 101 mmol/L (98-107); Cholesterol 244 mg/dL (140-199); Estimated Glomerular Filt Rate > 60 mL/min (>60); Glucose 109 mg/dL (70-100); HDL Cholesterol 48 mg/dL (40-60); HEMOLYSIS < 15 (0-50); LDL Cholesterol Calculated 166 mg/dL (<100); Potassium 4.3 mmol/L (3.4-5.1); Sodium 139 mmol/L (137-145); Triglycerides 151 mg/dL (35-150)
[2023-01-08 08:29] LABS: TSH w/ Reflex to FT4 0.82 uIU/mL (0.47-4.68)
== END ==
PROVIDERS: Family Provider Family Medicine; PCP Family Medicine; Referring Provider Family Medicine; Visit Provider Family Medicine
DX: E03.9 Hypothyroidism, unspecified (principal); E04.1 Nontoxic single thyroid nodule; E78.5 Hyperlipidemia, unspecified; I10 Essential (primary) hypertension
CPT/HCPCS: 36415; 80048; 80061; 84443

== ENCOUNTER → 2023-01-21 10:13 | Outpatient (CLI) | payer OTHER, SELFPAY ==
--- NOTE | 2023-01-21 10:14 | DI.RAD.S_ITS ---
PROCEDURE: XR LUMBAR SPINE oblique W BENDING INDICATIONS: back and hip pain TECHNIQUE: 7 views of the lumbar spine acquired, including oblique and flexion and extension views. COMPARISON: None. FINDINGS: Bones: 7 nonrib-bearing vertebrae are present. There is normal bony alignment. No vertebral body compression fractures. No suspicious bony lesions. Oblique views are unremarkable Soft tissues: Overlying bowel gas pattern is normal. No suspicious soft tissue calcifications. Flexion/extension: There is normal range of motion, with preserved normal alignment. IMPRESSION: Unremarkable lumbar spine radiographs. No evidence of segmental instability Approved by: Dwain Moseley M.D. on 01/21/2023 at 17:01
== END ==
PROVIDERS: Family Provider Family Medicine; PCP Family Medicine; Referring Provider Family Medicine; Visit Provider Family Medicine
DX: M54.9 Dorsalgia, unspecified (principal); M25.559 Pain in unspecified hip
CPT/HCPCS: 72114

== ENCOUNTER 2023-01-27 09:29 | Outpatient (CLI) | payer OTHER, SELFPAY ==
[2023-01-27] VITALS (8 sets, daily range): BP systolic 118–140; BP diastolic 70–83; PULSE 72–82; RESP 16–20; TEMP 36.2; O2SAT 95–98
--- NOTE | 2023-01-27 09:30 | DI.RAD.S_ITS ---
PROCEDURE: PAIN SI JOINT INJECTION INDICATIONS: Right SI joint injection COMPARISON: None. FINDINGS: Fluoroscopic spot filming was performed to verify placement of spinal needle at the right sacroiliac joint, as labeled on the films. Appropriate location of the needle tip was confirmed by injection of iodinated contrast. IMPRESSION: Intraprocedural examination demonstrates appropriate needle position. Approved by: Preston Castle M.D. on 01/27/2023 at 11:17
[2023-01-27] MEDS: BUPIVACAINE 0.5% (PF) 10 ML VIAL 2 ML INJ (09:54)
[2023-01-27] MEDS: DEXAMETHASONE 10 MG/ML VIAL INJ (09:54)
[2023-01-27] MEDS: MIDAZOLAM 2 MG/2 ML VIAL 1 MG IV (09:55)
[2023-01-27] MEDS: IOPAMIDOL 15 ML VIAL 3 ML INJ (09:55)
--- NOTE | 2023-01-27 10:01 | P.PCN_ITS ---
Date/Time/Diagnoses Date of procedure: 01/27/23 Time of procedure: 10:00 Procedure Notes Physician: Jermaine Duvall Total Fluoroscopy time (seconds): 11 Total sedation minutes: 5 Procedure in detail & Post-procedure care: Right Sacroiliac Joint Injection Indications: Annelise is presenting for treatment of SI joint dysfunction with low back/buttock pain. Preoperative diagnosis: Right SI joint dysfunction Postoperative diagnosis: Same Focused Examination: Ax3 Mood and affect are normal Vital Signs: VSS ASA: 2 Consent: Following review of allergies and potential side effects/complications, including, but not necessarily limited to, infection, allergic reaction, local tissue breakdown, stroke, temporary or permanent nerve injury, paralysis, and possible , the patient indicated that they understood and agreed to proceed.? An informed consent document was signed by the patient, witnessed by a nurse and placed in the patient's chart.? Additionally, other treatment options including medications and physical therapy were reviewed with the patient. All questions were answered. Site was then marked. Anesthesia: After review of previous anesthetic history and IV conscious sedation, the patient was deemed safe to proceed with today's procedure with IV conscious sedation. IV sedation was accomplished with midazolam 1 mg administered by the RN after order by Dr. Duvall. Sedation was titrated to patient comfort during the course of the procedure. Patient remained responsive to all verbal commands. Position: Prone Monitoring: NIBP, Pulse oximetry, 3 lead EKG Needle used: 22 ga, 3.5 inch spinal Contrast: 2 mL Isovue M-300 Injectate: 10 mg dexamethasone with 2 mL 0.5% Bupivacaine Technique: The skin was prepped with chloraprep and then draped in a sterile fashion. Time out was performed as per protocol. Oxygen applied via NC. Skin and subcutaneous structures of the needle entry site was then infiltrated with 5 mL of lidocaine 1%. Under AP and lateral fluoroscopic control, the spinal needle was guided into the right sacroiliac joint. 1 mL contrast was injected and was consistent with intra-articular placement. There was no evidence for intravascular uptake. After negative aspiration, the above-mentioned injectate was then slowly administered and the needle withdrawn. The patient expressed no unusual discomfort or paresthesias during the injection. Band-Aids applied to injection sites. EBL: less than 1 ml Complications: None Post Procedure: Patient was taken to the recovery and monitored. The patient was provided a Pain Log to continue to record the patient's response to the target- specific procedure prior to the patient's follow-up visit with the referring physician. Patient was stable upon discharge. Detailed post procedure instructions were provided. Patient was asked to call in the event of worsening pain, fever, weakness, numbness or bladder or bowel incontinence.
== END 2023-01-27 10:22 | disposition home or self-care (01) ==
LOC: RAD 09:29
PROVIDERS: Family Provider Family Medicine; PCP Family Medicine; Referring Provider Anesthesiology; Visit Provider Anesthesiology
DX: M53.3 Sacrococcygeal disorders, not elsewhere classified (principal)
CPT/HCPCS: 27096; 99152; J1100; J2250

== ENCOUNTER 2023-04-14 15:14 | Outpatient (CLI) | payer OTHER, SELFPAY ==
[2023-04-14] VITALS (8 sets, daily range): BP systolic 125–202; BP diastolic 83–106; PULSE 79–88; RESP 14–20; TEMP 36.3; O2SAT 94–98
--- NOTE | 2023-04-14 15:15 | DI.RAD.S_ITS ---
PROCEDURE: PAIN SI JOINT INJECTION INDICATIONS: JOINT DYSFUNCTION COMPARISON: [facility], XA, PAIN SI JOINT INJECTION, 01/27/2023, 9:50. FINDINGS: On these intraprocedural images, there is a spinal needle seen overlying the inferior aspect of the right sacroiliac joint. Appropriate position of the tip of the needle was confirmed by injection of a small amount of iodinated contrast. IMPRESSION: Successful sacroiliac joint injection. Dictated by: Deny Correa M.D. on 04/14/2023 at 18:14 Approved by: Deny Correa M.D. on 04/14/2023 at 18:14
[2023-04-14] MEDS: MIDAZOLAM 2 MG/2 ML VIAL 1 MG IV ×2 (15:42→15:45)
[2023-04-14] MEDS: DEXAMETHASONE 10 MG/ML VIAL INJ (15:45)
[2023-04-14] MEDS: IOPAMIDOL 15 ML VIAL 3 ML INJ (15:45)
--- NOTE | 2023-04-14 16:46 | P.PCN_ITS ---
Date/Time/Diagnoses Date of procedure: 04/14/23 Time of procedure: 15:30 Procedure Notes Physician: Jermaine Duvall Total Fluoroscopy time (seconds): 15 Total sedation minutes: 13 Procedure in detail & Post-procedure care: Sacroiliac Joint Injection Indications: Annelise is presenting for treatment of SI joint dysfunction with low back/buttock pain. Preoperative diagnosis: Right SI joint dysfunction Postoperative diagnosis: Same Focused Examination: Ax3 Mood and affect are normal Vital Signs: VSS ASA: 2 Consent: Following review of allergies and potential side effects/complications, including, but not necessarily limited to, infection, allergic reaction, local tissue breakdown, stroke, temporary or permanent nerve injury, paralysis, and possible , the patient indicated that they understood and agreed to proceed.? An informed consent document was signed by the patient, witnessed by a nurse and placed in the patient's chart.? Additionally, other treatment options including medications and physical therapy were reviewed with the patient. All questions were answered. Site was then marked. Anesthesia: After review of previous anesthetic history and IV conscious sedation, the patient was deemed safe to proceed with today's procedure with IV conscious sedation. IV sedation was accomplished with midazolam 2 mg administered by the RN after order by Dr. Duvall. Sedation was titrated to patient comfort during the course of the procedure. Patient remained responsive to all verbal commands. Position: Prone Monitoring: NIBP, Pulse oximetry, 3 lead EKG Needle used: 22 ga, 3.5 inch spinal Contrast: 2 mL Isovue M-300 Injectate: Dexamethasone 7.5 mg with 1% lidocaine 2 mL Technique: The skin was prepped with chloraprep and then draped in a sterile fashion. Time out was performed as per protocol. Oxygen applied via NC. Skin and subcutaneous structures of the needle entry site was then infiltrated with 5 mL of lidocaine 1%. Under AP and lateral fluoroscopic control, the spinal needle was guided into the right sacroiliac joint. 1 mL contrast was injected and was consistent with intra-articular placement. There was no evidence for intravascular uptake. After negative aspiration, the above-mentioned injectate was then slowly administered and the needle withdrawn. The patient expressed no unusual discomfort or paresthesias during the injection. Band-Aids applied to injection sites. EBL: less than 1 ml Complications: None Post Procedure: Patient was taken to the recovery and monitored. The patient was provided a Pain Log to continue to record the patient's response to the target- specific procedure prior to the patient's follow-up visit with the referring physician. Patient was stable upon discharge. Detailed post procedure instructions were provided. Patient was asked to call in the event of worsening pain, fever, weakness, numbness or bladder or bowel incontinence.
== END 2023-04-14 16:18 | disposition home or self-care (01) ==
PROVIDERS: Family Provider Family Medicine; PCP Family Medicine; Referring Provider Anesthesiology; Visit Provider Anesthesiology
DX: M53.3 Sacrococcygeal disorders, not elsewhere classified (principal)
CPT/HCPCS: 27096; 99152; J1100; J2250

== ENCOUNTER → 2023-05-14 08:39 | Outpatient (CLI) | payer OTHER, SELFPAY | PROVIDERS: Family Provider Family Medicine; PCP Family Medicine; Referring Provider Family Medicine; Visit Provider Family Medicine | DX: Z23 Encounter for immunization (principal) | CPT/HCPCS: 90471; 90686 ==

== ENCOUNTER → 2023-07-07 14:57 | Outpatient (CLI) | payer OTHER, SELFPAY ==
--- NOTE | 2023-07-07 14:58 | DI.RAD.S_ITS ---
PROCEDURE: XR KNEE RT 3V INDICATIONS: Bilateral knee pain TECHNIQUE: 3 views of the knee were acquired. COMPARISON: [facility], , KNEE 3V RIGHT, 12/31/2011, 16:12. FINDINGS: Bones: No fractures or dislocations. No suspicious bony lesions. Tricompartmental [id number] arthritic narrowing most severe medially. Minimal periarticular osteophytes. No erosions. Soft tissues: Mild joint effusion. No suspicious soft tissue calcifications. IMPRESSION: Tricompartmental arthritic change without erosions. Dictated by: Linda Livingston M.D. on 07/07/2023 at 16:41 Approved by: Linda Livingston M.D. on 07/07/2023 at 16:41
--- NOTE | 2023-07-07 14:58 | DI.RAD.S_ITS ---
PROCEDURE: XR ELBOW RT MIN 3V INDICATIONS: Right elbow pain TECHNIQUE: 3 views of the elbow were acquired. COMPARISON: None. FINDINGS: Bones: No fractures or dislocations. No suspicious bony lesions. Soft tissues: No elbow joint effusion. No suspicious soft tissue calcifications. IMPRESSION: No visualized acute fracture or dislocation. However, if clinical concern and/or pain persist, short interval imaging followup in 7-10 days is recommended, as occult injury cannot be definitively excluded. Dictated by: Linda Livingston M.D. on 07/07/2023 at 16:40 Approved by: Linda Livingston M.D. on 07/07/2023 at 16:41
--- NOTE | 2023-07-07 14:58 | DI.RAD.S_ITS ---
PROCEDURE: XR KNEE LT 3V INDICATIONS: Bilateral knee pain TECHNIQUE: 3 views of the knee were acquired. COMPARISON: [facility], , KNEE 3V RIGHT, 12/31/2011, 16:12. FINDINGS: Bones: No fractures or dislocations. No suspicious bony lesions. [id number] tricompartmental arthritic change. No erosions. Minimal periarticular osteophytes. Slight patellar subluxation. Soft tissues: Moderate joint effusion. No suspicious soft tissue calcifications. IMPRESSION: Moderate effusion with tricompartmental arthritic change. Dictated by: Linda Livingston M.D. on 07/07/2023 at 16:40 Approved by: Linda Livingston M.D. on 07/07/2023 at 16:40
== END ==
PROVIDERS: Family Provider Family Medicine; PCP Family Medicine; Referring Provider Anesthesiology; Visit Provider Anesthesiology
DX: M25.462 Effusion, left knee (principal); M25.461 Effusion, right knee; M25.561 Pain in right knee; M25.562 Pain in left knee; M25.521 Pain in right elbow
CPT/HCPCS: 73080; 73562

== ENCOUNTER → 2024-11-29 07:16 | Outpatient (CLI) | payer OTHER, SELFPAY ==
[2024-11-29 08:19] LABS: Add Manual Diff / Slide Review NO; Basophils Absolute Auto 100 /uL (0-100); Eosinophils Absolute Auto 100 /uL (0-450); Eosinophils Percent Auto 0.6 % (2-4); Hematocrit 41.8 % (36-46); Hemoglobin 14.7 g/dL (12.0-16.0); Lymphocytes Absolute Auto 2300 /uL (1100-4500); Lymphocytes Percent Auto 22.3 % (25-40); Mean Corpuscular HGB Conc 35.2 % (30-36); Mean Corpuscular Hemoglobin 34.1 PG (26-34); Mean Corpuscular Volume 96.9 fL (80-100); Monocytes Absolute Auto 400 /uL (0-900); Monocytes Percent Auto 4.1 % (3-14); Neutrophils Absolute Auto 7300 /uL (1500-7000); Platelet Count 313 X10^3/uL (150-400); Red Blood Cell Count 4.32 X10^6/uL (4.0-5.2); Red Cell Distribution Width 12.4 % (11.6-14.8); White Blood Cell Count 10.2 X10^3/uL (4.5-11.0)
[2024-11-29 08:42] LABS: Alanine Aminotransferase 17 IU/L (<35); Albumin 4.2 g/dL (3.5-5.0); Albumin Globulin Ratio 1.4 (1.0-2.8); Alkaline Phosphatase 92 U/L (38-126); Aspartate Aminotransferase 19 IU/L (14-36); BUN Creatinine Ratio 15.2 (6-22); Bilirubin Total 0.8 mg/dL (0.2-1.3); Blood Urea Nitrogen 17 mg/dL (7-17); Calcium 9.7 mg/dL (8.4-10.2); Carbon Dioxide 27 mmol/L (22-32); Chloride 106 mmol/L (98-107); Cholesterol 238 mg/dL (140-199); Estimated Glomerular Filt Rate 56 mL/min (>60); Glucose 101 mg/dL (70-99); HDL Cholesterol 43 mg/dL (40-60); HEMOLYSIS < 15 (0-50); LDL Cholesterol Calculated 152 mg/dL (<100); Potassium 4.8 mmol/L (3.4-5.1); Sodium 140 mmol/L (137-145); Total Protein 7.2 g/dL (6.3-8.2); Triglycerides 217 mg/dL (35-150)
[2024-11-29 08:54] LABS: Vitamin D 25 Hydroxy (D3) 75.2 ng/mL (30.0-100.0)
[2024-11-29 09:03] LABS: Free T3, Triiodothyronine Free 3.99 pg/mL (2.77-5.27)
[2024-11-29 09:17] LABS: TSH w/ Reflex to FT4 1.29 uIU/mL (0.47-4.68)
[2024-11-29 09:19] LABS: Ferritin 73 ng/mL (11-264)
[2024-11-29 22:40] LABS: CRP, High Sensitivity 8.98 mg/L (0.00-3.00)
== END ==
PROVIDERS: Family Provider Family Medicine; PCP Family Medicine; Referring Provider Family Medicine; Visit Provider Family Medicine
DX: Z00.00 Encounter for general adult medical examination without abnormal findings (principal); R53.83 Other fatigue; E03.9 Hypothyroidism, unspecified; E55.9 Vitamin D deficiency, unspecified
CPT/HCPCS: 36415; 80053; 80061; 82306; 82728; 84443; 84481; 85025; 86140

== ENCOUNTER 2024-12-06 08:53 | Day surgery (SDC) | payer OTHER, SELFPAY ==
--- NOTE | 2024-12-06 | PATH_ITS ---
[facility] Accession Number: [id number] No. of containers..01 Tissue . 01 Material submitted: . rectum - HIGH RECTUM . 01 Diagnosis: HIGH RECTUM: Hyperplastic polyp. STO 12/12/2024 1324 Local . 01 Electronically signed: . Jordan Walsh MD, Pathologist NPI- [id number] . 01 Gross description: . The specimen is received in formalin with two patient identifiers and high rectum biopsy, and consists of two reed tissues averaging 0.2 cm in greatest dimension, which are submitted in toto in cassette A1. ([id number]) /MRV 12/12/2024 1324 Local . 01 Pathologist provided ICD-10: K62.1 . 01 CPT . 929329 Specimen Comment: A courtesy copy of this report has been sent to [phone] Performed at: [address] [facility] [address], [place], [place] [id number] MD Jordan Walsh MD Phone: [phone]
[2024-12-06 09:25] VITALS: BP 141/96; PULSE 85; RESP 20; TEMP 36.2; O2SAT 95
[2024-12-06] MEDS: LACTATED RINGERS 1,000 ML 42 ML IV (09:27)
--- NOTE | 2024-12-06 09:27 | PM.HP.IH.1 ---
History of Present Illness History of Present Illness Date Patient Seen: 12/06/24 Chief complaint: SDC Narrative: History of colon polyps need for follow-up colonoscopy COUNT INCLUDES THE [facility] Medical History Bilateral primary osteoarthritis of knee Bilateral knee pain Swelling of right lower extremity Neuropathy of right ulnar nerve at wrist (12/04/16) Right elbow pain SI (sacroiliac) joint dysfunction Low back pain Osteopenia after menopause COPD (chronic obstructive pulmonary disease) Hepatic steatosis Thyroid nodule (~06/2012) Trochanteric bursitis, right hip Bronchitis Seasonal allergies Depression Insomnia Mumps Chicken pox Conjunctivitis History of recurrent ear infection Heavy menstrual period Hypothyroidism (10/06/11) Exercise-induced asthma (10/06/11) Moderate alcohol use disorder, in early remission (10/07/16) Osteoarthritis of both knees (02/21/16) Gastroesophageal reflux disease with esophagitis (08/05/12) Tobacco use disorder (10/06/11) Anxiety (10/06/11) Surgical History Anesthesia History of sinus surgery (~1992) History of use of contraceptive intrauterine device (IUD) (~12/23/11) History of esophagogastroduodenoscopy (EGD) (08/03/12) History of tonsillectomy (~1968) Status post tubal ligation (~1996) Status post colonoscopy (08/03/12) Family History Brother Diabetes mellitus Brother Patient's brother is in good health Brother Poor physical health Father Poor physical health Alcoholism Hypertension Mother Patient's mother is in good health Alcoholism Hypertension Social History household members: significant other Smoking Status: Current every day smoker quit status: considering quitting alcohol intake: current substance use type: does not use Meds Home Medications and Allergies Home Medications Medication Instructions Recorded Confirmed Type fluticasone propionate 50 9.9 ml NS Q DAY ##1 09/07/17 12/06/24 Rx mcg/actuation nasal spray,suspension (Flonase Allergy Relief) levothyroxine 75 mcg tablet 75 mcg PO DAILY #90 tabs 08/18/24 12/06/24 Rx (Synthroid) omeprazole 40 mg capsule,delayed 40 mg PO DAILY #90 caps 08/18/24 12/06/24 Rx release albuterol sulfate 90 mcg/actuation 2 puff inhalation Q4HP PRN 11/07/24 12/06/24 Rx aerosol inhaler (Ventolin HFA) shortness of breath or wheezing #2 ea progesterone micronized 100 mg 100 mg PO BEDTIME #90 caps 11/07/24 12/06/24 Rx capsule irbesartan 150 1 tab PO DAILY 12/06/24 12/06/24 History mg-hydrochlorothiazide 12.5 mg tablet (Avalide) Allergies Allergy/AdvReac Type Severity Reaction Status Date / Time varenicline Allergy Severe HIVES/DIFFICULTY Verified 12/06/24 09:17 BREATHING Exam Vital Signs (past 8 hours): - 12/06/24 09:25 Temperature 97.1 F L Pulse Rate 85 Respiratory Rate 20 Blood Pressure 141/96 H Pulse Oximetry 95 Oxygen Delivery Method Room Air Oxygen Delivery Method Room Air Narrative Exam Narrative: Oropharynx free of lesions Chest clear to auscultation percussion Cardiac exam reveals no S3 or murmur Assessment & Plan Assessment & Plan narrative: History of colon polyps need for follow-up colonoscopy. Risks, benefits alternatives have been explained. Time-Based Coding :: [TOTAL MINUTES] spent with patient and on the chart (including review of chart, obtaining history, exam, reviewing outside data, placing orders, documenting exam and treatment plan, and counseling patient) on [DATE]. PROFEE Knowledge Management Advisor Document charge(s): No
--- NOTE | 2024-12-06 09:28 | PM.OP.COLON ---
Operative Date/Time/Diagnoses Date of procedure: 12/06/24 Time of procedure: 10:11 Pre-op diagnosis: See indication and findings Post-op diagnosis: same Procedure & Clinicians Study performed: Colonoscopy Same procedure as scheduled: Yes Indications: History of colon polyps Surgeon: Eusebio Mckinley Procedure Notes Procedure in detail: After informed consent was obtained the patient was placed in left lateral decubitus position. The video colonoscope was introduced the rectum slowly advanced cecum. Preparation was good. On slow withdrawal mucosa was carefully examined. The scope was removed. The patient tolerated procedure well. Blood loss none Complications none Sedation mac Findings 1. Extensive sigmoid diverticulosis 2. Two polyps in the rectum. Measuring 4-6 mm. Removed with Jumbo biopsy forceps Will be in touch regarding biopsy results. I suspect they will be hyperplastic and therefore she should have follow-up in 5 years
[2024-12-06 10:14] VITALS: BP 114/83; PULSE 84; RESP 14; TEMP 36.2; O2SAT 93
[2024-12-06 10:19] VITALS: BP 127/92; PULSE 95; RESP 16; O2SAT 99
[2024-12-06 10:31] VITALS: BP 119/83; PULSE 88; RESP 18; TEMP 36.2; O2SAT 99
== END 2024-12-06 11:00 | disposition home or self-care (01) ==
PROVIDERS: Family Provider Family Medicine; PCP Family Medicine; Referring Provider Internal Medicine Gastroenterology; Visit Provider Internal Medicine Gastroenterology
PROC: 0DJD8ZZ Inspection of Lower Intestinal Tract, Via Natural or Artificial Opening Endoscopic (ICD-10-PCS; CPT 45378; principal; 2024-12-06 10:00)
DX: Z12.11 Encounter for screening for malignant neoplasm of colon (principal); F17.210 Nicotine dependence, cigarettes, uncomplicated; Z86.0100 Personal history of colon polyps, unspecified; K57.30 Diverticulosis of large intestine without perforation or abscess without bleeding
CPT/HCPCS: 45380; J2704

== ENCOUNTER 2025-07-06 06:13 | Day surgery (SDC) | payer OTHER, SELFPAY ==
[2025-06-25 15:07] VITALS: BMI 30.2
[2025-07-06] VITALS (16 sets, daily range): BP systolic 93–136; BP diastolic 50–93; PULSE 64–96; RESP 14–22; TEMP 28.8–36.8; O2SAT 92–96; BMI 29.3
--- NOTE | 2025-07-06 | PATH_ITS ---
[facility] Accession Number: [id number] No. of containers..01 Tissue . 01 Material submitted: . uterus - UTERUS, CERVIX, BILATERAL FALLOPIAN TUBES . 01 Diagnosis: UTERUS, CERVIX, AND BILATERAL FALLOPIAN TUBES, HYSTERECTOMY AND BILATERAL SALPINGECTOMY: Endometrial polyp. Leiomyomata. Inactive endometrium. Unremarkable cervix. Complete cross-sections of bilateral fimbriated fallopian tubes with no significant diagnostic alterations. MRV 07/11/2025 1459 Local . 01 Electronically signed: . Xena [place] MD, Pathologist NPI- [id number] . 01 Gross description: . Received in formalin labeled with two patient identifiers and uterus, cervix, bilateral fallopian tubes per the requisition, is an intact uterus with cervix and two detached unoriented bilateral fallopian tubes. The uterus and cervix are 69 grams, 9.8 cm from cervix to fundus, 5.0 cm from cornu to cornu, and 3.9 cm from anterior to posterior. . The uterine serosa is jones-purple, smooth and dusky with multiple nodules along the anterior aspect ranging from 0.1 to 0.2 cm. The cervix is 2.5 cm in diameter with reed-pink, hyperemic, smooth ectocervical mucosa. The endometrial cavity is vaguely oval and dilated, 5.0 cm long and up to 3.5 cm in width. There is a 1.2 x 1.2 x 0.7 cm endometrial polyp involing the posterior endometrium, 7.5 cm from the posterior squamocolumnar junction. There are multiple submucosal nodules, ranging from 1.1 to 2.1 cm demonstrating reed-pink, whorled, homogenous, fibrous cut surfaces. The myometrium is reed-pink and minimally trabeculated up to 1.3 cm with multiple intramural nodules ranging from 0.4 to 1.6 cm demonstrating reed-pink, whorled cut surfaces with focal scant calcification. No hemorrhage or necrosis is identified. . The detached fallopian tubes are arbitrarily designated A and B. Fallopian tube A is 4.2 cm long by 0.4 cm in diameter and discontinuous consistent with a previous ligation procedure. The serosa is reed-pin, congested, and focally shaggy, and the fimbriated ends are open. Fallopian tube B is 4.2 cm long by 0.4 cm in diameter with jones-purple shaggy congested serosa and open fimbriae. . [employer] Developer sections are submitted as follows: A1: Anterior cervix. A2: Posterior cervix with serosal nodules. A3: Anterior endomyometrium. A4: Posterior endomyometrium. A5: Endometrial polyp. A6: Submucosal nodules. A7: Intramural nodules. A8: Fallopian tube A with entire fimbriae. A9: Fallopian tube B with entire fimbriae. ([id number]) /CHENCHO 07/08/20252032 [facility] . 01 Pathologist provided ICD-10: N84.0, D25.9 . 01 CPT . 11152 Specimen Comment: A courtesy copy of this report has been sent to [facility] Pathology Performed at: [address] [address], [place], [place] [id number] MD Jordan Walsh MD Phone: [phone]
[2025-07-06] MEDS: LACTATED RINGERS 1,000 ML 42 ML IV (06:50)
[2025-07-06] MEDS: SCOPOLAMINE 1 PATCH TOP (06:50)
[2025-07-06] MEDS: ACETAMINOPHEN 325 MG TABLET 975 MG PO (06:50)
[2025-07-06] MEDS: ALBUTEROL/IPRATROPIUM 3 ML AMPUL INH (06:50)
[2025-07-06 07:18] LABS: Add Manual Diff / Slide Review NO; Hematocrit 45.8 % (36-46); Hemoglobin 16.1 g/dL (12.0-16.0); Lymphocytes Absolute Auto 2300 /uL (1100-4500); Mean Corpuscular HGB Conc 35.2 % (30-36); Mean Corpuscular Hemoglobin 34.4 PG (26-34); Mean Corpuscular Volume 97.6 fL (80-100); Platelet Count 302 X10^3/uL (150-400)
--- NOTE | 2025-07-06 07:24 | PM.PREOP ---
Pre-operative Note Interval Note History & Physical reviewed/Exam performed by Physician: Yes Changes to H&P: No ASA Class (for procedural sedation): II
[2025-07-06 07:27] LABS: Alanine Aminotransferase 31 IU/L (<35); Albumin 4.2 g/dL (3.5-5.0); Albumin Globulin Ratio 1.2 (1.0-2.8); Alkaline Phosphatase 81 U/L (38-126); Blood Urea Nitrogen 8 mg/dL (7-17); Calcium 9.4 mg/dL (8.4-10.2); Carbon Dioxide 22 mmol/L (22-32); Chloride 106 mmol/L (98-107); Estimated Glomerular Filt Rate > 60 mL/min (>60); Globulin 3.6 g/dL (1.7-4.1); Glucose 99 mg/dL (70-99); HEMOLYSIS 39 (0-50); Potassium 3.9 mmol/L (3.4-5.1); Sodium 138 mmol/L (137-145); Total Protein 7.8 g/dL (6.3-8.2)
--- NOTE | 2025-07-06 08:19 | SUR.OPER ---
Lithotomy on padded OR bed. [place] Pad Positioner under torso. Head on pillow, arms padded and tucked at sides. Legs secured in padded yellow fins stirrups.
[2025-07-06] MEDS: LACTATED RINGERS 1,000 ML 21 ML IV (08:30)
--- NOTE | 2025-07-06 10:09 | P.OP_ITS ---
Operative Date/Time/Diagnoses Date of procedure: 07/06/25 Time of procedure: 07:45 Pre-op diagnosis: chronic cervical dysplasia Post-op diagnosis: same Procedure & Clinicians Procedure: laparoscopic assisted vaginal hysterectomy with bilateral salpingectomy Same procedure(s) as scheduled: Yes Indications: chronic cervical dysplasia without personal h/o CIN2 Surgeon: Susan Menard Assisted?: Yes Court Interpreter: Catalino Robertson Anesthesia Type: General Operative Notes Findings: normal external female genitalia, perineum and anus urethra, cervix and vagina wnl intra-abdominal survey significant for chronic changes of liver, normal appearing stomach and appendix noted filmy adhesions of L adenxal complex to L lateral sidewall, bilateral fallopian tubes with appearance of chronic salpingitis without active infection Closure Type: primary Specimen(s): other (uterus, cervix, bilateral fallopian tubes ) Applied: none Estimated Blood Loss (mL): 50 Blood products transfused: none Procedure in detail: The patient was taken to the operating room, placed on the operating table in the supine position and intubated with ETT.? The patient was then placed in the lithotomy position with her legs in Mick stirrups.? The patient was then examined under anesthesia with the above findings, then prepped and draped in a sterile fashion.? A marin catheter was placed.? Time out was performed. A sterile speculum was inserted into the vagina.? The anterior cervix was grasped with single tooth tenaculum and under gentle traction sounded to 7cm.? The cervix was serially dilated to 17f using Lee dilators followed by placement of Zumi manipulator for uterine manipulation. Tenaculum and speculum removed and gloves were changed. Attention was then turned to abdominal portion of the case. Following superficial infiltration of dermis with 5cc 0.5% bupivicaine with epinephrine a 5mm incision was made infraumbilically and the Veress needle was placed and attached to insufflation. Initial opening pressures <8mmHg and the abdomen was allowed to fill with gas. Abdominal entry was achieved under direct visualization using the 5mm VisaPort trocar.? Abdomen was insufflated to 18mmHg.? Two lateral 5-mm ports were placed in a similar manner under direct visualization.? The uterus was anteverted and abdominal survey was noted with findings as noted above. The Powerseal was used to dissect bilateral fallopian tubes away from the mesosalpinx to the level of the cornua. The tube was amputated at the level of the cornua and removed via the ipsilateral lateral port and passed off the field for permanent study.? The utero-ovarian artery was burned and ligated followed by dissection of the round ligament with the Powerseal device.? This was repeated on the contralateral side. The uterine arteries were skeletonized bilaterally, and with noted blanching of the uterine corpus the uterine arteries were ligated and dissected.? A bladder flap was developed and the bladder reflection was ensured to be below the level of the cervix. At this time abdominal insufflation was paused and the gas was allowed to escape via the lateral trocars while attention was turned to the vaginal portion of the case. A short weighted speculum was placed in the vagina and the anterior vaginal wall was elevated using Quigley retractor. The cervix was visualized and grasped anteriorly and posteriorly with single tooth tenaculum. The cervical stroma was injected circumferentially with a total of 15cc 0.5% bupivicaine with epinephrine for purposes of hydrodissection as well as local hemostasis. Follow ing adequate blanching of the epithelium a circumferential incision was made using bovie cautery. The cervix was displaced anteriorly and the underlying posterior reflection was easily visualized. This was grasped and incised sharply with metzenbaum scissors with visual confirmation of entry into peritoneal cavity. The opening was further extended bluntly, digitally and the short speculum was exchanged for the long weighted. The anterior cervical epithelium was elevated and the underlying reflection was dissected in similar fashion with visual confirmation of entry into peritoneal cavity. Using the Ligasure the uterosacral ligaments were grasped, ligated and dissected in serial fashion until the uterus was free of all [place] attachments. The specimen of uterus and cervix was then removed en bloc via the vagina and passed off the field for permanent study. The posterior edge of the vaginal cuff was grasped using allis clamps and a modified McCaul-culdoplasty was performed using 0- vicryl in running fashion. The vaginal cuff was then closed [id number] in 3 figure of 8 interrupted sutures using 0-vicryl. Hemostasis was noted as was excellent apical support and no appreciable urethral hypermobility. A sterile sponge stick was placed in the vagina for further manipulation. Gloves were changed and laparoscopy was resumed. Insufflation resumed and vaginal cuff visualized from above, all wound beds inspected and noted to be hemostatic. Insufflation discontinued. Lateral trocars were removed under direct visualization followed by removal of infraumbilical trocar. The skin of all incisions was reapproximated using 4-0 vicryl followed by application of dermabond. All counts correct x2. Patient was taken out of lithotomy position, extubated and taken to PACU in stable condition without complication. Complications: none Post-operative Condition: stable Disposition: PACU Plan for aftercare: anticipate dc to home later today vs POD1 pending postoperative course, analgesia needs
[2025-07-06] MEDS: ACETAMINOPHEN 325 MG TABLET 650 MG PO (10:59)
[2025-07-06] MEDS: hydrOXYzine 50 MG/ML INJ 25 MG IM (11:01)
--- NOTE | 2025-07-06 12:56 | PC.NURSE ---
Pt arrived from PACU at 1125, A&Ox4, VSS on RA. c/o 3/10 mild discomfort to lower abdomen, no pain meds needed at this time. 3 lap sites to lower abdomen, closed with glue, C/D/I. Lung sounds CTA, bowel sounds present, CMS+ bilaterally throughout. Pt oriented to room and call light. Bed in low position, call light within reach, SCDs on.
--- NOTE | 2025-07-06 16:31 | PC.NURSE ---
Pt discharged home at 1620, escorted off floor in wheelchair accompanied by hospital staff. IV removed, discharge teaching completed including new medications, wound care and follow up appointments. Patient left the floor with all belongings.
== END 2025-07-06 16:34 | disposition home or self-care (01) ==
LOC: OR 06:14 → AC 11:11
PROVIDERS: PCP Family Medicine; Referring Provider Obstetrics & Gynecology; Visit Provider Obstetrics & Gynecology
PROC: 0UT9FZZ Resection of Uterus, Via Natural or Artificial Opening With Percutaneous Endoscopic Assistance (ICD-10-PCS; CPT 58552; principal; 2025-07-06 07:45)
DX: N87.0 Mild cervical dysplasia (principal); N73.6 Female pelvic peritoneal adhesions (postinfective); N70.11 Chronic salpingitis; F17.210 Nicotine dependence, cigarettes, uncomplicated; N84.0 Polyp of corpus uteri; D21.9 Benign neoplasm of connective and other soft tissue, unspecified
CPT/HCPCS: 58552; 80053; 85025; J0689; J1100; J1171; J1885; J2250; J2405; J2704; J3010; J3410; J7120